=== PATIENT | male | born 1930 | race Caucasian/White ===

== ENCOUNTER 2016-05-31 11:04 | Outpatient (RCR) | payer MEDICARE ==
--- OUTSIDE RECORDS SUMMARY | 2016-03-29 13:58 | XMS REPORT | Continuity of Care Document ---
Author Author [facility] Organization [facility] Address Unknown Phone Unavailable Care Team Providers Care Station Mechanic Apprentice Name Role Phone NO, LOCAL PHYSICIAN PCP Unavailable Insurance Providers Payer Name Policy Number Subscriber Name Relationship Wps Medicare [id number] Eyal Erazo 18 Self / Same As Patient Blue Cross [facility] Supp [id number] Eyal Erazo 18 Self / Same As Patient Advance Directives Directive Response Recorded Date/Time Advance Directives No 01/26/16 1:26pm Health Care Power of Lens Generator No 01/26/16 1:26pm Organ Donor No 01/26/16 1:26pm Problems Active Problems Medical Problem Onset Date Status Anemia Unknown Acute Medications Current Home Medications Medication Dose Units Route Directions Days/Qty Instructions Start Date Sotalol Hcl 80 Mg 40 Mg Oral Twice A Day 10/07/09 Doxazosin Mesylate 8 Mg 8 Mg Oral Bedtime 10/07/09 Folic Acid 0.4 Mg 400 Mcg Oral Daily 10/07/09 Magnesium Oxide 400 Mg 400 Mg Oral Daily 10/07/09 Ranitidine Hcl 300 Mg 300 Mg Oral Twice A Day 05/18/15 Simvastatin 80 Mg 40 Mg Oral Bedtime 07/13/15 Acetaminophen/Diphenhydramine 1 Each 2 Each Oral Bedtime 07/13/15 Timolol Maleate 10 Ml 1 Drop Each Eye Twice A Day 01/26/16 Clopidogrel Bisulfate 75 Mg 75 Mg Oral Daily 01/26/16 Past Home Medications Medication Directions Ordered Status Clopidogrel Bisulfate 75 Mg Tablet, 75 Mg Oral Daily 10/07/09 Discontinued Simvastatin 40 Mg Tablet, 80 10/07/09 Discontinued Omeprazole 40 Mg Capsule., 10/07/09 Discontinued Aspirin 81 Mg Tabec, 10/07/09 Discontinued Social History Social History Problem Response Recorded Date/Time Alcohol Use Denies Use 05/18/2015 8:29am Recreational Drug Use No 05/18/2015 8:29am Recent Foreign Travel SEE CRAIG 02/10/2016 10:05am Do you dip or chew tobacco? No 07/15/2015 9:55am Type Used Cigarettes 01/26/2016 1:22pm Hospital Discharge Instructions No hospital discharge instructions. Plan of Care Prescriptions See Medication Section Functional Status No functional status results. Allergies, Adverse Reactions, Alerts No known allergies. Immunizations No immunization records. Vital Signs No known vital signs results. Results Laboratory Results Test Name Result Units Flags Reference Collection Date/Time Result Date/ Time Comments White Blood Count 5.9 10^3/uL 4.3-11.0 03/01/2016 3:41pm 03/01/2016 3: 51pm Red Blood Count 3.36 10^6/uL L 4.35-5.85 03/01/2016 3:41pm 03/01/2016 3: 51pm Hemoglobin 9.4 G/DL L 13.3-17.7 03/01/2016 3:41pm 03/01/2016 3:51pm Hematocrit 31 % L 40-54 03/01/2016 3:41pm 03/01/2016 3:51pm Mean Corpuscular Volume 91 FL 80-99 03/01/2016 3:41pm 03/01/2016 3: 51pm Mean Corpuscular Hemoglobin 28 PG 25-34 03/01/2016 3:41pm 03/01/2016 3: 51pm Mean Corpuscular Hemoglobin Concent 31 G/DL L 32-36 03/01/2016 3:41pm 01/2016 3:51pm Red Cell Distribution Width 21.0 % H 10.0-14.5 03/01/2016 3:41pm 2015 3:51pm Platelet Count 240 10^3/uL 130-400 03/01/2016 3:41pm 03/01/2016 3:51pm Mean Platelet Volume 9.2 FL 7.4-10.4 03/01/2016 3:41pm 03/01/2016 3: 51pm Neutrophils (%) (Auto) 68 % 42-75 03/01/2016 3:41pm 03/01/2016 3:51pm Lymphocytes (%) (Auto) 22 % 12-44 03/01/2016 3:41pm 03/01/2016 3:51pm Monocytes (%) (Auto) 7 % 0-12 03/01/2016 3:41pm 03/01/2016 3:51pm Eosinophils (%) (Auto) 2 % 0-10 03/01/2016 3:41pm 03/01/2016 3:51pm Basophils (%) (Auto) 0 % 0-10 03/01/2016 3:41pm 03/01/2016 3:51pm Neutrophils # (Auto) 4.1 X 10^3 1.8-7.8 03/01/2016 3:41pm 03/01/2016 3: 51pm Lymphocytes # (Auto) 1.3 X 10^3 1.0-4.0 03/01/2016 3:41pm 03/01/2016 3: 51pm Monocytes # (Auto) 0.4 X 10^3 0.0-1.0 03/01/2016 3:41pm 03/01/2016 3: 51pm Eosinophils # (Auto) 0.1 10^3/uL 0.0-0.3 03/01/2016 3:41pm 03/01/2016 3 :51pm Basophils # (Auto) 0.0 10^3/uL 0.0-0.1 03/01/2016 3:41pm 03/01/2016 3: 51pm Neutrophils % (Manual) 71 % 02/17/2016 10:16am 02/17/2016 12:10pm Band Neutrophils 0 % 02/17/2016 10:am 02/17/2016 12:10pm Lymphocytes % (Manual) 17 % 02/17/2016 10:16am 02/17/2016 12:10pm Monocytes % (Manual) 11 % 02/17/2016 10:16am 02/17/2016 12:10pm Eosinophils % (Manual) 0 % 02/17/2016 10:16am 02/17/2016 12:10pm Basophils % (Manual) 1 % 02/17/2016 10:16am 02/17/2016 12:10pm Hypochromasia SLIGHT 02/17/2016 10:1602/17/2016 12:10pm Anisocytosis MARKED 02/17/2016 10:16am 02/17/2016 12:10pm Absolute Reticulocyte Count 32 10e9/L 24-90 02/17/2016 10:16am 2015 11:11am Percent Reticulocyte Count 1.00 % 0.50-2.40 02/17/2016 10:16am 2015 11:11am Sodium Level 142 MMOL/L 135-145 03/01/2016 3:41pm 03/01/2016 4:18pm Potassium Level 4.6 MMOL/L 3.6-5.0 03/01/2016 3:41pm 03/01/2016 4:18pm Chloride Level 109 MMOL/L H 98-107 03/01/2016 3:41pm 03/01/2016 4:18pm Carbon Dioxide Level 23 MMOL/L 21-32 03/01/2016 3:41pm 03/01/2016 4: 18pm Anion Gap 10 MMOL/L 5-14 03/01/2016 3:41pm 03/01/2016 4:18pm Blood Urea Nitrogen 30 MG/DL H 7-18 03/01/2016 3:41pm 03/01/2016 4:18pm Creatinine 1.56 MG/DL H 0.60-1.30 03/01/2016 3:41pm 03/01/2016 4:18pm BUN/Creatinine Ratio 19 03/01/2016 3:41pm 03/01/2016 4:18pm Estimat Glomerular Filtration Rate 43 03/01/2016 3:41pm 03/01/2016 4:18pm GFR INTERPRETIVE DATA UNITS FOR ESTIMATED GFR (eGFR): mL/min/1.73 M2 REFERENCE RANGE FOR ESTIMATED GFR (eGFR) eGFR NORMAL eGFR >60 MODERATELY DECREASED eGFR 30-59 SEVERLY DECREASED eGFR 15-29 KIDNEY FAILURE <15 (OR DIALYSIS) Glucose Level 130 MG/DL H 70-105 03/01/2016 3:41pm 03/01/2016 4:18pm Calcium Level 9.3 MG/DL 8.5-10.1 03/01/2016 3:41pm 03/01/2016 4:18pm Total Bilirubin 0.3 MG/DL 0.1-1.0 03/01/2016 3:41pm 03/01/2016 4:18pm Alkaline Phosphatase 112 U/L 40-136 03/01/2016 3:41pm 03/01/2016 4: 18pm Aspartate Amino Transf (AST/SGOT) 20 U/L 5-34 03/01/2016 3:41pm 2015 4:18pm Alanine Aminotransferase (ALT/SGPT) 15 U/L 0-55 03/01/2016 3:41pm 03/01 4:18pm Total Protein 7.0 G/DL 6.4-8.2 03/01/2016 3:41pm 03/01/2016 4:18pm Albumin 3.7 G/DL 3.2-4.5 03/01/2016 3:41pm 03/01/2016 4:18pm Agxn-0-Ourgctqcttaru 3.66 mg/L H 0.00-1.85 02/17/2016 10:16am 02/20/2016 8:00am Test performed at [facility], CLIA# [id number] [address] [place] [address] Ferritin 25 ng/mL 25-300 03/01/2016 3:41pm 03/02/2016 7:20am Test performed at [facility], CLIA# [id number] [address] [place] [address] Iron Level 32 ug/dL L 40-180 03/01/2016 3:41pm 03/01/2016 6:05pm Transferrin % Saturation 11 % L 15-50 03/01/2016 3:41pm 03/01/2016 6: 05pm Total Iron Binding Capacity 294 ug/dL 280-380 03/01/2016 3:41pm 2015 6:05pm Unsaturated Iron Binding Capacity 262 ug/dL 55-450 03/01/2016 3:41pm 6:05pm Test performed at [facility], CLIA# [id number] [address] [place] [address] Total Protein (PEP) 6.4 g/dL 6.1-8.1 02/17/2016 10:16am 02/20/2016 8: 03am Test performed at [facility], CLIA# [id number] [address] [place] [address] Protein Electrophoresis Pathologist SEE PATH REPORT 02/17/2016 10: 16am 02/21/2016 2:54pm Protein Electrophoresis Note [id number] 02/17/2016 10:16am 2015 2:54pm Free [place] Light Chains, Quant 55.39 mg/L H 3.30-19.40 02/17/2016 10:16am 02/20/2016 8:03am Free Lambda Light Chains, Quant 28.43 mg/L H 5.71-26.30 02/17/2016 10: 16am 02/20/2016 8:03am Free [place]/Lambda Light Chain Ratio 1.95 ratio H 0.26-1.65 02/17/2016 10: 16am 02/20/2016 8:03am Test performed at [facility], CLIA# [id number] [address] [place] [address] Pathology Specimen Result FOOTNOTE 02/17/2016 10:16am 02/21/2016 2: 54pm Eyal Erazo Clinical Pathology Report Accession Number Collected Date/Time Verified Date/Time [id number] 02/16/16 5:08:00 PM 02/21/16 2:27:11 PM Interpretation Serum protein electrophoresis and free light chain analysis - Decreased albumin. Depending on the clinical context, hypoalbuminemia may reflect decreased hepatic synthesis from liver disease, malnutrition or albumin loss due to nephrosis, shelley or enteropathy. ICD-10: E88.09 No abnormal bands detected. ICD-10: D64.9 An increase in serum free kappa and/or lambda light chains with a near normal ratio most frequently represents a polyclonal increase associated with inflammatory conditions or renal insufficiency. Clinical correlation is required. ICD-10: D89.0 Gaudencio Beckford M.D. Pathologist (Electronic Signature) WFF 02/21/2016 Performing Location: [facility], [address] [place] Electrophoresis FRACTION G/DL NORMAL RANGE TOTAL PROTEIN 6.4 6.1 - 8.1 ALBUMIN L 3.1 3.5 - 4.8 ALPHA-1 0.4 0.2 - 0.5 ALPHA-2 1.0 0.5 - 1.2 BETA 0.8 0.6 - 1.2 GAMMA 1.0 0.5 - 1.5 Serum Free Light Chain Analysis FRACTION MG/L NORMAL RANGE Free [place] H 55.39 3.30 - 19.40 Free Lambda H 28.43 5.71 - 26.30 Free Ratio H 1.95 0.26 - 1.65 Specimen Serum Procedures No known history of procedures. Encounters Encounter Location Arrival/Admit Date Discharge/Depart Date Attending Provider Discharged Recurring [facility] 03/01/16 2:52pm 11:07ADRIANE Prescott MD
[2016-03-29 14:38] LABS: BASOPHILS % (AUTO) 0 % (0-10); EOSINOPHILS # (AUTO) 0.1 10^3/uL (0.0-0.3); EOSINOPHILS % (AUTO) 3 % (0-10); LYMPHOCYTES # (AUTO) 0.9 X 10^3 (1.0-4.0); LYMPHOCYTES % (AUTO) 21 % (12-44); MEAN CORPUSCULAR HEMOGLOBIN 30 PG (25-34); MEAN CORPUSCULAR HGB CONC 31 G/DL (32-36); MEAN CORPUSCULAR VOLUME 98 FL (80-99); MEAN PLATELET VOLUME 8.6 FL (7.4-10.4); MONOCYTES # (AUTO) 0.5 X 10^3 (0.0-1.0); MONOCYTES % (AUTO) 10 % (0-12); NEUTROPHILS # (AUTO) 2.9 X 10^3 (1.8-7.8); NEUTROPHILS % (AUTO) 66 % (42-75); PLATELET COUNT 206 10^3/uL (130-400); RED BLOOD COUNT 2.89 10^6/uL (4.35-5.85); WHITE BLOOD COUNT 4.4 10^3/uL (4.3-11.0)
[2016-03-29 15:03] LABS: ALBUMIN 3.6 G/DL (3.2-4.5); BILIRUBIN,TOTAL 0.3 MG/DL (0.1-1.0); CREATININE SERUM 1.5 MG/DL (0.60-1.30); POTASSIUM 4.6 MMOL/L (3.6-5.0); TOTAL PROTEIN 6.6 G/DL (6.4-8.2)
[2016-05-14 14:02] LABS: BASOPHILS % (AUTO) 0 % (0-10); EOSINOPHILS # (AUTO) 0.1 10^3/uL (0.0-0.3); EOSINOPHILS % (AUTO) 2 % (0-10); LYMPHOCYTES # (AUTO) 0.8 X 10^3 (1.0-4.0); LYMPHOCYTES % (AUTO) 11 % (12-44); MEAN CORPUSCULAR HEMOGLOBIN 34 PG (25-34); MEAN CORPUSCULAR HGB CONC 32 G/DL (32-36); MEAN CORPUSCULAR VOLUME 107 FL (80-99); MEAN PLATELET VOLUME 9.1 FL (7.4-10.4); MONOCYTES # (AUTO) 0.6 X 10^3 (0.0-1.0); MONOCYTES % (AUTO) 9 % (0-12); NEUTROPHILS # (AUTO) 5.8 X 10^3 (1.8-7.8); NEUTROPHILS % (AUTO) 79 % (42-75); PLATELET COUNT 199 10^3/uL (130-400); RED BLOOD COUNT 2.62 10^6/uL (4.35-5.85); RED CELL DISTRIBUTION WIDTH 18.3 % (10.0-14.5); WHITE BLOOD COUNT 7.3 10^3/uL (4.3-11.0)
[2016-05-14 14:37] LABS: ALBUMIN 3.8 G/DL (3.2-4.5); BILIRUBIN,TOTAL 0.4 MG/DL (0.1-1.0); CALCIUM 8.5 MG/DL (8.5-10.1); CREATININE SERUM 1.53 MG/DL (0.60-1.30); POTASSIUM 4.9 MMOL/L (3.6-5.0); TOTAL PROTEIN 6.7 G/DL (6.4-8.2)
[2016-05-14 16:51] LABS: %SAT TOTAL IRON BINDING CAPIC 10 % (15-50); TIBC 235 ug/dL (280-380)
[2016-05-15 08:44] LABS: FERRITIN 334 ng/mL (25-300); UIBC 212 ug/dL (55-450)
[~2016-05-31 11:04] MED LIST: ACET-2469 PO; ACETAMINOPHEN 500 MG TAB (TYLENOL) CANCER CTR ONE; ASP81TEC; CLOP75TA PO; CLOP75TA28 PO; DOXA8TAB33 PO; FERRIC CARBOXYMALTOSE (CANCER) 750 MG in NS (IVPB) CANCER CENTER 250 ML IV SCH; FOLI0.4T2 PO; MAGN400T6 PO; NS IV 500 ML (CANCER CENTER) 500 ML ONE; OMEP40CA36; RANI300T4 PO; SIMV40TA2; SIMV80TA3 PO; SOTA80TA38 PO; TIMO10DR12 OU; diphenhydrAMINE 25 MG TAB (BENADRYL) CANCER CENTER PO ONE
[2016-06-01 08:03] LABS: FOLIC ACID 22.4 ng/mL (1.5-24.0)
== END 2016-06-27 | disposition home or self-care (01) ==
LOC: ONC 11:04
PROVIDERS: ATTEND Internal Medicine Hematology & Oncology
DX: D64.9 Anemia, unspecified (principal); R97.20 Elevated prostate specific antigen [PSA]; N28.89 Other specified disorders of kidney and ureter; I25.10 Atherosclerotic heart disease of native coronary artery without angina pectoris; Z79.02 Long term (current) use of antithrombotics/antiplatelets; Z79.899 Other long term (current) drug therapy
CPT/HCPCS: 36415; 36430; 80053; 82607; 82728; 82746; 83540; 84153; 85025; 86850; 86900; 86901; 86920; 96365; 96374; 99213

== ENCOUNTER → 2016-07-13 | Outpatient (CLI) | payer MEDICARE ==
[~2016-07-13] MED LIST changes: -ACETAMINOPHEN 500 MG TAB (TYLENOL) CANCER CTR ONE; +CATHETER FLUSH 10 ML SYR IV PRN; -FERRIC CARBOXYMALTOSE (CANCER) 750 MG in NS (IVPB) CANCER CENTER 250 ML IV SCH; +IOHEXOL 350 MG/ML 100 ML (OMNIPAQUE 350) VIAL IV ONE; +NS 100 ML (IVPB) BAG IV ONE; -NS IV 500 ML (CANCER CENTER) 500 ML ONE; -diphenhydrAMINE 25 MG TAB (BENADRYL) CANCER CENTER PO ONE
--- OUTSIDE RECORDS SUMMARY | 2016-07-13 12:07 | XMS REPORT | Continuity of Care Document ---
Author Author [facility] Organization [facility] Address Unknown Phone Unavailable Care Team Providers Care Infrastructure Developer Name Role Phone NO, LOCAL PHYSICIAN PCP Unavailable Insurance Providers Payer Name Policy Number Subscriber Name Relationship s Medicare [id number] Eyal Erazo 18 Self / Same As Patient Blue Cross [facility] Supp [id number] Eyal Erazo 18 Self / Same As Patient Advance Directives Directive Response Recorded Date/Time Advance Directives No 01/26/16 1:26pm Health Care Power of Front Office Coordinator No 01/26/16 1:26pm Organ Donor No 01/26/16 [...] Use No 05/18/2015 8:29am Recent Foreign Travel N SEE CRAIG 03/29/2016 1:53pm Do you dip or chew tobacco? No [...] Result Date/ Time Comments White Blood Count 7.3 10^3/uL 4.3-11.0 05/14/2016 1:55pm 05/14/2016 2: 03pm Red Blood Count 2.62 10^6/uL L 4.35-5.85 05/14/2016 1:55pm 05/14/2016 2: 03pm Hemoglobin 8.9 G/DL L 13.3-17.7 05/14/2016 1:55pm 05/14/2016 2:03pm Hematocrit 28 % L 40-54 05/14/2016 1:55pm 05/14/2016 2:03pm Mean Corpuscular Volume 107 FL H 80-99 05/14/2016 1:55pm 05/14/2016 2: 03pm Mean Corpuscular Hemoglobin 34 PG 25-34 05/14/2016 1:55pm 05/14/2016 2: 03pm Mean Corpuscular Hemoglobin Concent 32 G/DL 32-36 05/14/2016 1:55pm 2:03pm Red Cell Distribution Width 18.3 % H 10.0-14.5 05/14/2016 1:55pm 2015 2:03pm Platelet Count 199 10^3/uL 130-400 05/14/2016 1:55pm 05/14/2016 2:03pm Mean Platelet Volume 9.1 FL 7.4-10.4 05/14/2016 1:55pm 05/14/2016 2: 03pm Neutrophils (%) (Auto) 79 % H 42-75 05/14/2016 1:55pm 05/14/2016 2:03pm Lymphocytes (%) (Auto) 11 % L 12-44 05/14/2016 1:55pm 05/14/2016 2:03pm Monocytes (%) (Auto) 9 % 0-12 05/14/2016 1:55pm 05/14/2016 2:03pm Eosinophils (%) (Auto) 2 % 0-10 05/14/2016 1:55pm 05/14/2016 2:03pm Basophils (%) (Auto) 0 % 0-10 05/14/2016 1:55pm 05/14/2016 2:03pm Neutrophils # (Auto) 5.8 X 10^3 1.8-7.8 05/14/2016 1:55pm 05/14/2016 2: 03pm Lymphocytes # (Auto) 0.8 X 10^3 L 1.0-4.0 05/14/2016 1:55pm 05/14/2016 2: 03pm Monocytes # (Auto) 0.6 X 10^3 0.0-1.0 05/14/2016 1:55pm 05/14/2016 2: 03pm Eosinophils # (Auto) 0.1 10^3/uL 0.0-0.3 05/14/2016 1:55pm 05/14/2016 2 :03pm Basophils # (Auto) 0.0 10^3/uL 0.0-0.1 05/14/2016 1:55pm 05/14/2016 2: 03pm Sodium Level 140 MMOL/L 135-145 05/14/2016 1:55pm 05/14/2016 2:45pm Potassium Level 4.9 MMOL/L 3.6-5.0 05/14/2016 1:55pm 05/14/2016 2:45pm Chloride Level 112 MMOL/L H 98-107 05/14/2016 1:55pm 05/14/2016 2:45pm Carbon Dioxide Level 22 MMOL/L 21-32 05/14/2016 1:55pm 05/14/2016 2: 45pm Anion Gap 6 MMOL/L 5-14 05/14/2016 1:55pm 05/14/2016 2:45pm Blood Urea Nitrogen 31 MG/DL H 7-18 05/14/2016 1:55pm 05/14/2016 2:45pm Creatinine 1.53 MG/DL H 0.60-1.30 05/14/2016 1:55pm 05/14/2016 2:45pm BUN/Creatinine Ratio 20 05/14/2016 1:55pm 05/14/2016 2:45pm Estimat Glomerular Filtration Rate 43 05/14/2016 1:55pm 05/14/2016 2:45pm GFR INTERPRETIVE DATA UNITS FOR ESTIMATED GFR (eGFR): mL/min/1.73 M2 REFERENCE RANGE FOR ESTIMATED GFR (eGFR) eGFR NORMAL eGFR >60 MODERATELY DECREASED eGFR 30-59 SEVERLY DECREASED eGFR 15-29 KIDNEY FAILURE <15 (OR DIALYSIS) Glucose Level 113 MG/DL H 70-105 05/14/2016 1:55pm 05/14/2016 2:45pm Calcium Level 8.5 MG/DL 8.5-10.1 05/14/2016 1:55pm 05/14/2016 2:45pm Total Bilirubin 0.4 MG/DL 0.1-1.0 05/14/2016 1:55pm 05/14/2016 2:45pm Alkaline Phosphatase 105 U/L 40-136 05/14/2016 1:55pm 05/14/2016 2: 45pm Aspartate Amino Transf (AST/SGOT) 17 U/L 5-34 05/14/2016 1:55pm 2015 2:45pm Alanine Aminotransferase (ALT/SGPT) 11 U/L 0-55 05/14/2016 1:55pm 05/14 2:45pm Total Protein 6.7 G/DL 6.4-8.2 05/14/2016 1:55pm 05/14/2016 2:45pm Albumin 3.8 G/DL 3.2-4.5 05/14/2016 1:55pm 05/14/2016 2:45pm Ferritin 334 ng/mL H 25-300 05/14/2016 1:55pm 05/15/2016 8:44am Test performed at [facility], CLIA# [id number] [address] [place] [address] Folate 22.4 ng/mL 1.5-24.0 05/31/2016 11:28am 06/01/2016 8:03am Test performed at [facility], CLIA# [id number] [address] [place] [address] Iron Level 23 ug/dL L 40-180 05/14/2016 1:55pm 05/15/2016 8:44am Transferrin % Saturation 10 % L 15-50 05/14/2016 1:55pm 05/15/2016 8: 44am Total Iron Binding Capacity 235 ug/dL L 280-380 05/14/2016 1:55pm 2015 8:44am Unsaturated Iron Binding Capacity 212 ug/dL 55-450 05/14/2016 1:55pm 8:44am Test performed at [facility], CLIA# [id number] [address] [place] [address] Vitamin B12 Level 400 pg/mL 200-1000 05/31/2016 11:28am 06/01/2016 8: 03am Test performed at [facility], CLIA# [id number] [address] [place] [address] Procedures No known history of procedures. Encounters Encounter Location Arrival/Admit Date Discharge/Depart Date Attending Provider Discharged Recurring [facility] 05/31/16 11:04am 11:59pm ADRIANE MURRAY MD
--- NOTE | 2016-07-13 17:29 | Diagnostic Imaging Report ---
PROCEDURE: CT abdomen and pelvis with and without contrast. TECHNIQUE: Precontrast acquisitions were acquired through the abdomen and pelvis. Multiple contiguous axial images were obtained through the abdomen and pelvis after the administration of intravenous contrast. INDICATION: Right renal mass. Comparison is made with a prior CT angiogram from December 05, 2015. FINDINGS: The visualized lung bases demonstrate no focal consolidation or evidence of a pleural effusion. There are advanced coronary calcifications. The patient is status post a previous sternotomy. The liver demonstrates no evidence of a focal intrahepatic abnormality. There appears to be a fold within the gallbladder at the fundus. There is no biliary dilatation. The spleen is unremarkable. There is no focal pancreatic abnormality. There is no evidence of an adrenal mass. Dominant exophytic lesion arising from the posterior aspect of the right kidney measures 5.2 cm and is of water density compatible with a simple cyst. An exophytic lesion arising from the mid right kidney anteriorly measures 2.3 x 2.1 cm. On precontrast images, this has a density of 11 Hounsfield units. It has a density of 15 Hounsfield units on the postcontrast exam. This is a density of 22 Hounsfield units on the delayed phase. On the left, there is an 18 mm cortical cyst within the mid left kidney which demonstrates low densities with negative Hounsfield units on the delayed phase. The small and large bowel are normal in caliber without evidence of obstruction. There is advanced diverticulosis but no evidence of diverticulitis. The urinary bladder is unremarkable. The prostate is enlarged. There are no pathologically enlarged abdominal or pelvic lymph nodes demonstrated. Advanced atherosclerotic calcifications are again demonstrated within the aorta and the iliacs. There are advanced multilevel degenerative endplate changes demonstrated throughout the spine. There is no suspicious lytic or blastic lesion. IMPRESSION: 1. Patient's exophytic lesion extending anteriorly from the mid right kidney is slightly smaller than on the previous examination. This demonstrates only minimal increase in density over the course of the exam. Precontrast Hounsfield units are 11, with the delayed phase measured at 22. The overall findings favor a slightly hyperdense cyst. This could be further assessed with ultrasound or MRI. Otherwise, continued followup could be performed. 2. The large dominant lesion in the right kidney and the left renal lesion appear compatible with simple cyst. 3. Advanced diverticulosis without evidence of diverticulitis. 4. Advanced atherosclerosis and coronary artery disease. 5. Advanced degenerative features throughout the visualized portion of the spine. Dictated by: Dictated on workstation # [id number]
== END ==
LOC: RAD 12:03
PROVIDERS: ATTEND Urology
DX: N28.9 Disorder of kidney and ureter, unspecified (principal); K57.90 Diverticulosis of intestine, part unspecified, without perforation or abscess without bleeding
CPT/HCPCS: 74178

== ENCOUNTER 2016-08-13 13:23 | Outpatient (RCR) | payer MEDICARE ==
[~2016-08-13 13:23] MED LIST changes: -CATHETER FLUSH 10 ML SYR IV PRN; -IOHEXOL 350 MG/ML 100 ML (OMNIPAQUE 350) VIAL IV ONE; -NS 100 ML (IVPB) BAG IV ONE
--- OUTSIDE RECORDS SUMMARY | 2016-08-13 13:27 | XMS REPORT | Continuity of Care Document ---
Author Author [facility] Organization [facility] Address Unknown Phone Unavailable Care Team Providers Care Stained Glass Artist Name Role Phone NO, LOCAL PHYSICIAN PCP Unavailable Insurance Providers Payer Name Policy Number Subscriber Name Relationship s Medicare [id number] Eyal Erazo 18 Self / Same As Patient Blue Cross [facility] Supp [id number] Eyal Erazo 18 Self / Same As Patient Advance Directives Directive Response Recorded Date/Time Advance Directives No 01/26/16 1:26pm Health Care Power of Assistant Unit Forester No 01/26/16 1:26pm Organ Donor No 01/26/16 [...] 05/14/2016 1:55pm 05/15/2016 8:44am Test performed at [facility], CLIA# [id number] [address] [place] [address] Folate 22.4 ng/mL 1.5-24.0 05/31/2016 11:28am 06/01/2016 8:03am Test performed at [facility], CLIA# [id number] [address] [place] [address] Iron Level 23 ug/dL L 40-180 05/14/2016 1:55pm 05/15/2016 8:44am Transferrin % Saturation 10 % L 15-50 05/14/2016 1:55pm 05/15/2016 8: 44am Total Iron Binding Capacity 235 ug/dL L 280-380 05/14/2016 1:55pm 2015 8:44am Unsaturated Iron Binding Capacity 212 ug/dL 55-450 05/14/2016 1:55pm 8:44am Test performed at [facility], CLIA# [id number] [address] [place] [address] Vitamin B12 Level 400 pg/mL 200-1000 05/31/2016 11:28am 06/01/2016 8: 03am Test performed at [facility], CLIA# [id number] [address] [place] [address] Procedures No known history of procedures. Encounters Encounter Location Arrival/Admit Date Discharge/Depart Date Attending Provider Discharged Recurring [facility] 05/31/16 11:04am 11:59pm ADRIANE MURRAY MD
[2016-08-13 13:48] LABS: BASOPHILS % (AUTO) 0 % (0-10); EOSINOPHILS # (AUTO) 0.1 10^3/uL (0.0-0.3); EOSINOPHILS % (AUTO) 2 % (0-10); LYMPHOCYTES % (AUTO) 21 % (12-44); MEAN CORPUSCULAR HEMOGLOBIN 34 PG (25-34); MEAN CORPUSCULAR HGB CONC 32 G/DL (32-36); MEAN CORPUSCULAR VOLUME 108 FL (80-99); MEAN PLATELET VOLUME 9.3 FL (7.4-10.4); MONOCYTES # (AUTO) 0.4 X 10^3 (0.0-1.0); MONOCYTES % (AUTO) 10 % (0-12); NEUTROPHILS # (AUTO) 3.1 X 10^3 (1.8-7.8); NEUTROPHILS % (AUTO) 67 % (42-75); PLATELET COUNT 169 10^3/uL (130-400); RED BLOOD COUNT 2.88 10^6/uL (4.35-5.85); RED CELL DISTRIBUTION WIDTH 13.3 % (10.0-14.5); WHITE BLOOD COUNT 4.6 10^3/uL (4.3-11.0)
[2016-08-13 14:31] LABS: ALBUMIN 3.9 G/DL (3.2-4.5); BILIRUBIN,TOTAL 0.5 MG/DL (0.1-1.0); CREATININE SERUM 1.55 MG/DL (0.60-1.30); POTASSIUM 5.3 MMOL/L (3.6-5.0); TOTAL PROTEIN 6.9 G/DL (6.4-8.2)
[2016-08-13 16:24] LABS: %SAT TOTAL IRON BINDING CAPIC 15 % (15-50); TIBC 267 ug/dL (280-380)
[2016-08-14 07:35] LABS: FOLIC ACID >24.0 ng/mL (1.5-24.0); UIBC 226 ug/dL (55-450)
== END 2016-11-11 | disposition home or self-care (01) ==
LOC: ONC 13:23
PROVIDERS: ATTEND Internal Medicine Hematology & Oncology
DX: D64.9 Anemia, unspecified (principal); R97.20 Elevated prostate specific antigen [PSA]; N28.89 Other specified disorders of kidney and ureter; I25.10 Atherosclerotic heart disease of native coronary artery without angina pectoris; Z79.02 Long term (current) use of antithrombotics/antiplatelets; Z79.899 Other long term (current) drug therapy
CPT/HCPCS: 36415; 80053; 82607; 82728; 82746; 83540; 84153; 85025; 99213

== ENCOUNTER 2016-11-14 14:27 | Outpatient (RCR) | payer MEDICARE ==
[2016-11-14 14:58] LABS: BASOPHILS % (AUTO) 0 % (0-10); EOSINOPHILS # (AUTO) 0.1 10^3/uL (0.0-0.3); EOSINOPHILS % (AUTO) 2 % (0-10); LYMPHOCYTES # (AUTO) 0.9 X 10^3 (1.0-4.0); LYMPHOCYTES % (AUTO) 23 % (12-44); MEAN CORPUSCULAR HEMOGLOBIN 34 PG (25-34); MEAN CORPUSCULAR HGB CONC 32 G/DL (32-36); MEAN CORPUSCULAR VOLUME 107 FL (80-99); MEAN PLATELET VOLUME 10.1 FL (7.4-10.4); MONOCYTES # (AUTO) 0.3 X 10^3 (0.0-1.0); MONOCYTES % (AUTO) 7 % (0-12); NEUTROPHILS # (AUTO) 2.8 X 10^3 (1.8-7.8); NEUTROPHILS % (AUTO) 68 % (42-75); PLATELET COUNT 152 10^3/uL (130-400); RED BLOOD COUNT 3.19 10^6/uL (4.35-5.85); RED CELL DISTRIBUTION WIDTH 13.8 % (10.0-14.5); WHITE BLOOD COUNT 4.1 10^3/uL (4.3-11.0)
[2016-11-14 15:14] LABS: BILIRUBIN,TOTAL 0.6 MG/DL (0.1-1.0); CALCIUM 9.2 MG/DL (8.5-10.1); CREATININE SERUM 1.69 MG/DL (0.60-1.30); POTASSIUM 4.9 MMOL/L (3.6-5.0)
== END 2017-02-12 | disposition home or self-care (01) ==
LOC: ONC 14:27
PROVIDERS: ATTEND Internal Medicine Hematology & Oncology
DX: D64.9 Anemia, unspecified (principal); R97.20 Elevated prostate specific antigen [PSA]; N28.89 Other specified disorders of kidney and ureter; I25.10 Atherosclerotic heart disease of native coronary artery without angina pectoris; H90.3 Sensorineural hearing loss, bilateral; I73.9 Peripheral vascular disease, unspecified; Z79.02 Long term (current) use of antithrombotics/antiplatelets; Z79.899 Other long term (current) drug therapy
CPT/HCPCS: 36415; 80053; 82728; 83540; 84153; 85025; 99213

== ENCOUNTER → 2016-11-14 | Outpatient (CLI) | payer MEDICARE | LOC: LAB 14:51 | PROVIDERS: ATTEND Family Medicine | DX: Z53.9 Procedure and treatment not carried out, unspecified reason (principal) ==

== ENCOUNTER → 2016-11-14 | Outpatient (CLI) | payer MEDICARE | LOC: LAB 14:54 | PROVIDERS: ATTEND Internal Medicine Cardiovascular Disease | DX: N28.89 Other specified disorders of kidney and ureter (principal); R97.20 Elevated prostate specific antigen [PSA]; D64.9 Anemia, unspecified; I25.10 Atherosclerotic heart disease of native coronary artery without angina pectoris; H90.3 Sensorineural hearing loss, bilateral ==

== ENCOUNTER → 2017-01-10 | Outpatient (CLI) | payer MEDICARE ==
[~2017-01-10] MED LIST changes: +CATHETER FLUSH 10 ML SYR IV PRN; +IOHEXOL 350 MG/ML 100 ML (OMNIPAQUE 350) VIAL IV ONE; +NS 100 ML (IVPB) BAG IV ONE
--- NOTE | 2017-01-10 13:57 | Diagnostic Imaging Report ---
PROCEDURE: CT abdomen and pelvis with and without contrast. TECHNIQUE: Precontrast acquisitions were acquired through the abdomen and pelvis. Multiple contiguous axial images were obtained through the abdomen and pelvis after the administration of intravenous contrast. INDICATION: Renal mass. CORRELATION STUDY: 07/13/2016 and 01/30/2013. FINDINGS: LOWER THORAX: Heart size is upper limits of normal. There is presence of dense coronary artery calcification as well as calcification at the level of the mitral valve. Reflux of contrast into the inferior vena cava and hepatic veins could be reflective of right heart failure or perhaps tricuspid insufficiency. However, right atrium does not appear to be overtly enlarged. There may be very small hiatal hernia at the the EG junction. LIVER: Unremarkable. GALLBLADDER: Somewhat distended with multiple folds but otherwise unremarkable. No bile duct dilatation. SPLEEN: Unremarkable. PANCREAS: Unremarkable. ADRENAL GLANDS: Slight hyperplasia with thickening. No definitive nodularity or mass. KIDNEYS: Again noted multiple low-density masses within both kidneys, compatible with cysts. A 2.7 x 2.4 cm low-density mass off the anterior superior pole is again demonstrated. Most recent study measured 23 x 21 mm. At baseline assessment, measured 21 mm. This is of slightly increased density and demonstrates some peripheral enhancement including a small area of nodular enhancement along its anteroinferior aspect. This demonstrates Hounsfield units of 13, 22, and 29 on the pre, arterial and delayed-enhanced sequences, respectively. ABDOMINAL AORTA: Moderate wall calcification. Very slight ectasia inferiorly without significant aneurysmal dilatation. Rather significant bulky calcification of common iliac arteries with likely moderate narrowing. GASTROINTESTINAL TRACT: Extensive colonic diverticulosis is noted. No obstruction or inflammation. There is a somewhat prominent circumferential thickening of the rectum. URINARY BLADDER: Unremarkable. REPRODUCTIVE: Prostate gland is mildly prominent. OSSEOUS STRUCTURES: Rather advanced multilevel degenerative changes. Disc space narrowing and endplate osteophyte formation. IMPRESSION: 1. Bilateral renal cysts with a slightly more complex hyperdense mass in the right kidney again demonstrated. This is overall perhaps slightly larger from previous imaging. Bosniak 2F, this could be further assessed with either ultrasound and/or MRI if clinically warranted. 2. Extensive colonic diverticulosis without evidence for acute diverticulitis. Also noted asymmetric wall thickening at the level of the rectum. This is nonspecific, could be reflective of proctitis or possibility of annular lesion not excluded. Correlation with need for potential followup colon cancer screening evaluation. 3. Rather prominent aortoiliac vascular calcification, particularly of the common iliac arteries. Dictated by: Dictated on workstation # [id number]
== END ==
LOC: RAD 11:24
PROVIDERS: ATTEND Urology
DX: N28.1 Cyst of kidney, acquired (principal); K57.30 Diverticulosis of large intestine without perforation or abscess without bleeding; K62.9 Disease of anus and rectum, unspecified; I70.0 Atherosclerosis of aorta; I70.8 Atherosclerosis of other arteries
CPT/HCPCS: 74178

== ENCOUNTER 2017-03-19 14:07 | Outpatient (RCR) | payer MEDICARE ==
[2017-02-18 15:18] LABS: BASOPHILS % (AUTO) 0 % (0-10); EOSINOPHILS # (AUTO) 0.1 10^3/uL (0.0-0.3); EOSINOPHILS % (AUTO) 2 % (0-10); LYMPHOCYTES # (AUTO) 0.8 X 10^3 (1.0-4.0); LYMPHOCYTES % (AUTO) 19 % (12-44); MEAN CORPUSCULAR HEMOGLOBIN 34 PG (25-34); MEAN CORPUSCULAR HGB CONC 31 G/DL (32-36); MEAN CORPUSCULAR VOLUME 109 FL (80-99); MONOCYTES # (AUTO) 0.4 X 10^3 (0.0-1.0); MONOCYTES % (AUTO) 9 % (0-12); NEUTROPHILS # (AUTO) 2.8 X 10^3 (1.8-7.8); NEUTROPHILS % (AUTO) 70 % (42-75); PLATELET COUNT 173 10^3/uL (130-400); RED BLOOD COUNT 2.69 10^6/uL (4.35-5.85); RED CELL DISTRIBUTION WIDTH 14.1 % (10.0-14.5)
[2017-02-18 15:40] LABS: ALBUMIN 3.7 GM/DL (3.2-4.5); BILIRUBIN,TOTAL 0.4 MG/DL (0.1-1.0); CREATININE SERUM 1.41 MG/DL (0.60-1.30); POTASSIUM 4.7 MMOL/L (3.6-5.0); TOTAL PROTEIN 6.9 GM/DL (6.4-8.2)
[~2017-03-19 14:07] MED LIST changes: -CATHETER FLUSH 10 ML SYR IV PRN; -IOHEXOL 350 MG/ML 100 ML (OMNIPAQUE 350) VIAL IV ONE; -NS 100 ML (IVPB) BAG IV ONE
[2017-03-19 14:32] LABS: BASOPHILS % (AUTO) 0 % (0-10); EOSINOPHILS # (AUTO) 0.1 10^3/uL (0.0-0.3); EOSINOPHILS % (AUTO) 2 % (0-10); LYMPHOCYTES % (AUTO) 23 % (12-44); MEAN CORPUSCULAR HEMOGLOBIN 34 PG (25-34); MEAN CORPUSCULAR HGB CONC 31 G/DL (32-36); MEAN CORPUSCULAR VOLUME 110 FL (80-99); MEAN PLATELET VOLUME 9.7 FL (7.4-10.4); MONOCYTES # (AUTO) 0.3 X 10^3 (0.0-1.0); MONOCYTES % (AUTO) 8 % (0-12); NEUTROPHILS # (AUTO) 2.8 X 10^3 (1.8-7.8); NEUTROPHILS % (AUTO) 67 % (42-75); PLATELET COUNT 166 10^3/uL (130-400); RED BLOOD COUNT 2.75 10^6/uL (4.35-5.85); WHITE BLOOD COUNT 4.1 10^3/uL (4.3-11.0)
[2017-03-19 14:49] LABS: ALBUMIN 3.6 GM/DL (3.2-4.5); BILIRUBIN,TOTAL 0.3 MG/DL (0.1-1.0); CREATININE SERUM 1.52 MG/DL (0.60-1.30); POTASSIUM 4.2 MMOL/L (3.6-5.0)
== END 2017-03-23 | disposition home or self-care (01) ==
LOC: ONC 14:07
PROVIDERS: ATTEND Internal Medicine Hematology & Oncology
DX: D64.9 Anemia, unspecified (principal); R97.20 Elevated prostate specific antigen [PSA]; N28.89 Other specified disorders of kidney and ureter; I25.10 Atherosclerotic heart disease of native coronary artery without angina pectoris; H90.3 Sensorineural hearing loss, bilateral; I73.9 Peripheral vascular disease, unspecified; Z79.02 Long term (current) use of antithrombotics/antiplatelets; Z79.899 Other long term (current) drug therapy
CPT/HCPCS: 36415; 80053; 82668; 82728; 83540; 85025; 99213

== ENCOUNTER → 2017-06-04 | Outpatient (CLI) | payer MEDICARE ==
[2017-06-04 10:20] LABS: CALCIUM 8.7 MG/DL (8.5-10.1); CREATININE SERUM 1.49 MG/DL (0.60-1.30); POTASSIUM 4.7 MMOL/L (3.6-5.0)
== END ==
LOC: RAD 09:50
PROVIDERS: ATTEND Internal Medicine Cardiovascular Disease
DX: I65.23 Occlusion and stenosis of bilateral carotid arteries (principal)
CPT/HCPCS: 36415; 80048

== ENCOUNTER 2017-07-16 13:38 | Outpatient (RCR) | payer MEDICARE ==
[2017-04-23 14:23] LABS: BASOPHILS % (AUTO) 0 % (0-10); EOSINOPHILS # (AUTO) 0.1 10^3/uL (0.0-0.3); EOSINOPHILS % (AUTO) 2 % (0-10); HEMATOCRIT 32 % (40-54); LYMPHOCYTES # (AUTO) 1.1 X 10^3 (1.0-4.0); LYMPHOCYTES % (AUTO) 28 % (12-44); MEAN CORPUSCULAR HEMOGLOBIN 34 PG (25-34); MEAN CORPUSCULAR HGB CONC 32 G/DL (32-36); MEAN CORPUSCULAR VOLUME 108 FL (80-99); MEAN PLATELET VOLUME 9.8 FL (7.4-10.4); MONOCYTES # (AUTO) 0.3 X 10^3 (0.0-1.0); MONOCYTES % (AUTO) 7 % (0-12); NEUTROPHILS # (AUTO) 2.4 X 10^3 (1.8-7.8); NEUTROPHILS % (AUTO) 63 % (42-75); PLATELET COUNT 169 10^3/uL (130-400); RED BLOOD COUNT 2.92 10^6/uL (4.35-5.85); RED CELL DISTRIBUTION WIDTH 13.8 % (10.0-14.5); WHITE BLOOD COUNT 3.8 10^3/uL (4.3-11.0)
[2017-04-23 14:46] LABS: ALBUMIN 3.8 GM/DL (3.2-4.5); BILIRUBIN,TOTAL 0.4 MG/DL (0.1-1.0); CALCIUM 8.8 MG/DL (8.5-10.1); CREATININE SERUM 1.4 MG/DL (0.60-1.30); POTASSIUM 4.1 MMOL/L (3.6-5.0); TOTAL PROTEIN 6.8 GM/DL (6.4-8.2)
[2017-05-21 13:50] LABS: ABSOLUTE RETIC # 62 10e9/L (24-90); BASOPHILS % (AUTO) 0 % (0-10); EOSINOPHILS # (AUTO) 0.1 10^3/uL (0.0-0.3); EOSINOPHILS % (AUTO) 2 % (0-10); HEMATOCRIT 28 % (40-54); HEMOGLOBIN 8.7 G/DL (13.3-17.7); LYMPHOCYTES % (AUTO) 27 % (12-44); MEAN CORPUSCULAR HEMOGLOBIN 35 PG (25-34); MEAN CORPUSCULAR HGB CONC 32 G/DL (32-36); MEAN CORPUSCULAR VOLUME 110 FL (80-99); MEAN PLATELET VOLUME 9.8 FL (7.4-10.4); MONOCYTES # (AUTO) 0.3 X 10^3 (0.0-1.0); MONOCYTES % (AUTO) 9 % (0-12); NEUTROPHILS # (AUTO) 2.3 X 10^3 (1.8-7.8); NEUTROPHILS % (AUTO) 62 % (42-75); PLATELET COUNT 156 10^3/uL (130-400); RED BLOOD COUNT 2.51 10^6/uL (4.35-5.85); RED CELL DISTRIBUTION WIDTH 14.4 % (10.0-14.5); RETICULOCYTE % 2.46 % (0.50-2.40); WHITE BLOOD COUNT 3.7 10^3/uL (4.3-11.0)
[2017-05-21 14:11] LABS: ALBUMIN 3.6 GM/DL (3.2-4.5); BILIRUBIN,TOTAL 0.4 MG/DL (0.1-1.0); CREATININE SERUM 1.37 MG/DL (0.60-1.30); POTASSIUM 4.8 MMOL/L (3.6-5.0); TOTAL PROTEIN 6.5 GM/DL (6.4-8.2)
[~2017-07-16 13:38] MED LIST changes: +CYANOCOBALAMIN INJ 1000 MCG/ML (CANCER CENTER) ONE
[2017-07-16 13:57] LABS: ABSOLUTE RETIC # 43 10e9/L (24-90); BASOPHILS % (AUTO) 1 % (0-10); EOSINOPHILS # (AUTO) 0.1 10^3/uL (0.0-0.3); EOSINOPHILS % (AUTO) 2 % (0-10); HEMATOCRIT 32 % (40-54); HEMOGLOBIN 10.3 G/DL (13.3-17.7); LYMPHOCYTES # (AUTO) 0.9 X 10^3 (1.0-4.0); LYMPHOCYTES % (AUTO) 23 % (12-44); MEAN CORPUSCULAR HEMOGLOBIN 35 PG (25-34); MEAN CORPUSCULAR HGB CONC 32 G/DL (32-36); MEAN CORPUSCULAR VOLUME 110 FL (80-99); MEAN PLATELET VOLUME 9.9 FL (7.4-10.4); MONOCYTES # (AUTO) 0.2 X 10^3 (0.0-1.0); MONOCYTES % (AUTO) 6 % (0-12); NEUTROPHILS # (AUTO) 2.6 X 10^3 (1.8-7.8); NEUTROPHILS % (AUTO) 69 % (42-75); PLATELET COUNT 137 10^3/uL (130-400); RED BLOOD COUNT 2.95 10^6/uL (4.35-5.85); RED CELL DISTRIBUTION WIDTH 13.8 % (10.0-14.5); RETICULOCYTE % 1.45 % (0.50-2.40); WHITE BLOOD COUNT 3.8 10^3/uL (4.3-11.0)
[2017-07-16] MEDS ORDERED: CYANOCOBALAMIN INJ 1000 MCG/ML (CANCER CENTER) ONE (14:12)
[2017-07-16 14:16] LABS: ALBUMIN 3.8 GM/DL (3.2-4.5); BILIRUBIN,TOTAL 0.5 MG/DL (0.1-1.0); CALCIUM 9.1 MG/DL (8.5-10.1); CREATININE SERUM 1.67 MG/DL (0.60-1.30); POTASSIUM 4.6 MMOL/L (3.6-5.0)
== END 2017-07-22 | disposition home or self-care (01) ==
LOC: ONC 13:38
PROVIDERS: ATTEND Internal Medicine Hematology & Oncology
DX: D64.9 Anemia, unspecified (principal); R97.20 Elevated prostate specific antigen [PSA]; N28.89 Other specified disorders of kidney and ureter; I25.10 Atherosclerotic heart disease of native coronary artery without angina pectoris; H90.3 Sensorineural hearing loss, bilateral; I73.9 Peripheral vascular disease, unspecified; Z79.02 Long term (current) use of antithrombotics/antiplatelets; Z79.899 Other long term (current) drug therapy
CPT/HCPCS: 36415; 80053; 85025; 85045; 96372; 99213

== ENCOUNTER → 2017-08-21 | Outpatient (CLI) | payer MEDICARE ==
[~2017-08-21] MED LIST changes: -CYANOCOBALAMIN INJ 1000 MCG/ML (CANCER CENTER) ONE
[2017-08-21 11:58] LABS: CALCIUM 9.2 MG/DL (8.5-10.1); CREATININE SERUM 1.25 MG/DL (0.60-1.30); POTASSIUM 4.9 MMOL/L (3.6-5.0)
--- NOTE | 2017-08-21 15:27 | Diagnostic Imaging Report ---
CLINICAL INDICATION: Patient with severe coronary artery disease. EXAMS: 1: Head CT with and without IV contrast. 2: CT angiogram of the head and neck performed with 80 cc of Omnipaque 350 IV contrast. Sagittal and coronal MIP reformations were created for better visualization of vascular anatomy. COMPARISON: None. FINDINGS: Head CT: There is no evidence of acute cerebral infarct, intracranial hemorrhage, or gross mass effect. There are focal and patchy areas of low-attenuation white matter changes throughout both cerebral hemispheres, likely representing chronic small vessel ischemic disease. There is diffuse brain parenchymal volume loss seen. There is normal isaacs-white matter distinction. There is no significant midline shift or herniation. There is no evidence of hydrocephalus. The basal cisterns are unremarkable. The skull, extracranial soft tissue, and orbits are unremarkable. There are large amounts of mucosal thickening involving both maxillary sinuses, ethmoid sinus, frontal sinus, and sphenoid sinus with near complete consolidation. There is high-density material seen within both maxillary sinuses, ethmoid sinus, sphenoid sinus regions as well. There is chronic bony thickening/sclerosis involving the paranasal sinuses. Temporal bones show no significant abnormality. CT angiogram: Three-vessel aortic arch is seen. There is dense atherosclerotic disease involving the origin of the right subclavian artery with severe stenosis seen. There is no significant stenosis involving the left subclavian artery. The distal aspect of the right brachiocephalic artery shows atherosclerotic disease with no significant stenosis. There is dense atherosclerotic disease involving the origin and proximal right CCA with less than 50% narrowing. There is extensive atherosclerotic calcification involving the distal right CCA with mild narrowing in its distal portion. There is no significant narrowing of the origin or proximal aspect of the right ECA. There is dense atherosclerotic disease involving the proximal right ICA with grossly 70% stenosis. The remainder of the cervical right ICA shows no significant narrowing. The left CCA origin shows mild narrowing. There is soft atherosclerotic plaque involving the distal left CCA, proximal cervical left ICA, and origin of the left ECA. There is no significant stenosis of the left CCA. There is severe stenosis of the origin and proximal left ECA. There is focal tortuosity of the proximal left cervical ICA with mild to moderate narrowing. There is dense atherosclerotic plaque involving the distal cervical left ICA with mild narrowing seen. There is dense atherosclerotic plaque involving the origin of the cervical left ICA with severe stenosis. Remainder of the cervical left vertebral artery is patent. The cervical right vertebral artery is patent without significant stenosis. Relatively codominant vertebral arteries are seen. Intradural vertebral arteries, basilar artery, PICA, bilateral SCAs, and left [employer] patent without significant stenosis. The right P1 [employer] is absent or severely hypoplastic with a right posterior communicating artery seen. There is atherosclerotic disease involving the bilateral cavernous carotid arteries with severe stenosis on the right and areas of moderate stenosis on the left. The right A1 GUDELIA is hypoplastic. There is a prominent anterior communicating artery which is trifurcating. The ACAs and their distal branches and bilateral MCAs and their distal branches are patent. There is no evidence of aneurysm or significant stenosis involving the remainder of the [place]. Visualized portion of the dural venous sinus shows no significant abnormality. There is a 13 mm low-density nodule in the right thyroid gland. There is significant emphysematous lung disease seen. There is multilevel cervical spine degenerative disease. IMPRESSION: 1: There are age-related brain parenchymal changes with no evidence of acute intracranial process. There is no abnormal IV contrast enhancement. 2: There is diffuse atherosclerotic disease involving the intracranial ICAs and neck arteriovascular structures which is described in detail above. 3: There is severe stenosis involving the proximal cervical right ICA, origin of the cervical left ICA, and origin/proximal aspect of the left ECA. 4: There are areas of severe stenosis involving the cavernous right ICA and moderate stenosis involving areas of the cavernous left ICA. 5: There is a 13 mm right thyroid gland nodule. Thyroid ultrasound would better evaluate. 6: There is severe diffuse paranasal sinusitis. Dictated by: Dictated on workstation # [id number]
== END ==
LOC: RAD 11:26
PROVIDERS: ATTEND Physician Assistant Medical
DX: I67.2 Cerebral atherosclerosis (principal); I65.23 Occlusion and stenosis of bilateral carotid arteries; E04.1 Nontoxic single thyroid nodule; J32.8 Other chronic sinusitis
CPT/HCPCS: 36415; 70496; 70498; 80048

== ENCOUNTER → 2017-09-05 | Outpatient (CLI) | payer MEDICARE ==
--- NOTE | 2017-09-05 15:55 | Diagnostic Imaging Report ---
PROCEDURE: US Thyroid. TECHNIQUE: Multiple real-time grayscale images were obtained of the thyroid in various projections. INDICATION: Nodule right lobe FINDINGS: There are no previous ultrasound examinations available for comparison. The CTA head and neck exam performed on 08/21/2017 did note a 13 mm low-density nodule in the right lobe of the thyroid. On this exam, there is a 1.6 x 1.3 x 1.3 cm complex predominantly cystic nodule in the right lobe of the thyroid. I do suspect that this corresponds to the finding of the CT exam. This may be related to a degenerating thyroid nodule. I feel it is unlikely that this would be neoplastic in nature. If a tissue diagnosis is desired, then an ultrasound-guided biopsy could be performed. If there is no intervention at this time, then a short-term (three-month) follow-up thyroid ultrasound exam should be performed. A nuclear medicine thyroid scan may not prove worthwhile given the recent administration of intravenous contrast. There is also a 0.5 cm low-density nodule in the left lobe. This has a generally benign appearance. A 3 mm low-density nodule is also seen in the inferior pole of the right lobe. The thyroid gland itself is not enlarged with the right lobe measuring 4.8 x 1.8 x 1.6 cm and the left lobe estimated to be 3.1 x 1.5 x 0.4 cm (normal gland size 4-5 x 2 x 2 cm or less). IMPRESSION: 1. There is a 1.6 x 1.3 x 1.3 cm nodule of mixed echogenicity in the right lobe of the thyroid. This would correspond to the finding of the CT exam. Recommendations as above. 2. The subcentimeter nodules in the inferior pole of the right lobe and the left lobe of the thyroid are most likely benign. Dictated on workstation # [id number]
== END ==
LOC: RAD 13:38
PROVIDERS: ATTEND Physician Assistant Medical
DX: E04.2 Nontoxic multinodular goiter (principal)
CPT/HCPCS: 76536

== ENCOUNTER 2017-11-05 07:44 | Outpatient (RCR) | payer MEDICARE ==
[2017-10-08 11:07] LABS: BASOPHILS % (AUTO) 1 % (0-10); EOSINOPHILS # (AUTO) 0.1 10^3/uL (0.0-0.3); EOSINOPHILS % (AUTO) 2 % (0-10); HEMATOCRIT 33 % (40-54); HEMOGLOBIN 10.4 G/DL (13.3-17.7); LYMPHOCYTES % (AUTO) 26 % (12-44); MEAN CORPUSCULAR HEMOGLOBIN 34 PG (25-34); MEAN CORPUSCULAR HGB CONC 32 G/DL (32-36); MEAN CORPUSCULAR VOLUME 106 FL (80-99); MEAN PLATELET VOLUME 9.7 FL (7.4-10.4); MONOCYTES # (AUTO) 0.3 X 10^3 (0.0-1.0); MONOCYTES % (AUTO) 8 % (0-12); NEUTROPHILS # (AUTO) 2.4 X 10^3 (1.8-7.8); NEUTROPHILS % (AUTO) 63 % (42-75); PLATELET COUNT 144 10^3/uL (130-400); RED BLOOD COUNT 3.08 10^6/uL (4.35-5.85); RED CELL DISTRIBUTION WIDTH 14.2 % (10.0-14.5); WHITE BLOOD COUNT 3.7 10^3/uL (4.3-11.0)
[2017-10-08 11:39] LABS: ALBUMIN 3.7 GM/DL (3.2-4.5); BILIRUBIN,TOTAL 0.4 MG/DL (0.1-1.0); CREATININE SERUM 1.45 MG/DL (0.60-1.30); POTASSIUM 4.4 MMOL/L (3.6-5.0); TOTAL PROTEIN 6.7 GM/DL (6.4-8.2)
[~2017-11-05 07:44] MED LIST changes: +CYANOCOBALAMIN INJ 1000 MCG/ML (CANCER CENTER) ONE
[2017-11-05] MEDS ORDERED: CYANOCOBALAMIN INJ 1000 MCG/ML (CANCER CENTER) ONE (08:09)
== END 2017-11-11 | disposition home or self-care (01) ==
LOC: ONC 07:44
PROVIDERS: ATTEND Internal Medicine Hematology & Oncology
DX: D64.9 Anemia, unspecified (principal); R97.20 Elevated prostate specific antigen [PSA]; N28.89 Other specified disorders of kidney and ureter; I25.10 Atherosclerotic heart disease of native coronary artery without angina pectoris; H90.3 Sensorineural hearing loss, bilateral; I73.9 Peripheral vascular disease, unspecified; Z79.02 Long term (current) use of antithrombotics/antiplatelets; Z79.899 Other long term (current) drug therapy
CPT/HCPCS: 36415; 80053; 82728; 83540; 85025; 96372

== ENCOUNTER 2017-12-03 08:25 | Outpatient (RCR) | payer MEDICARE ==
[~2017-12-03 08:25] MED LIST changes: -CYANOCOBALAMIN INJ 1000 MCG/ML (CANCER CENTER) ONE; -SIMV80TA3 PO; +SIMV80TA5 PO
[2017-12-03] MEDS ORDERED: CYANOCOBALAMIN INJ 1000 MCG/ML (CANCER CENTER) ONE (08:29)
[2017-12-31 10:59] LABS: BASOPHILS % (AUTO) 1 % (0-10); EOSINOPHILS # (AUTO) 0.1 10^3/uL (0.0-0.3); EOSINOPHILS % (AUTO) 2 % (0-10); HEMATOCRIT 30 % (40-54); HEMOGLOBIN 9.8 G/DL (13.3-17.7); LYMPHOCYTES # (AUTO) 1.1 X 10^3 (1.0-4.0); LYMPHOCYTES % (AUTO) 25 % (12-44); MEAN CORPUSCULAR HEMOGLOBIN 35 PG (25-34); MEAN CORPUSCULAR HGB CONC 32 G/DL (32-36); MEAN CORPUSCULAR VOLUME 108 FL (80-99); MEAN PLATELET VOLUME 9.8 FL (7.4-10.4); MONOCYTES # (AUTO) 0.5 X 10^3 (0.0-1.0); MONOCYTES % (AUTO) 10 % (0-12); NEUTROPHILS # (AUTO) 2.8 X 10^3 (1.8-7.8); NEUTROPHILS % (AUTO) 63 % (42-75); PLATELET COUNT 144 10^3/uL (130-400); RED BLOOD COUNT 2.82 10^6/uL (4.35-5.85); RED CELL DISTRIBUTION WIDTH 14.4 % (10.0-14.5); WHITE BLOOD COUNT 4.4 10^3/uL (4.3-11.0)
[2017-12-31 11:21] LABS: ALBUMIN 3.6 GM/DL (3.2-4.5); BILIRUBIN,TOTAL 0.4 MG/DL (0.1-1.0); CREATININE SERUM 1.51 MG/DL (0.60-1.30); POTASSIUM 4.7 MMOL/L (3.6-5.0); TOTAL PROTEIN 6.5 GM/DL (6.4-8.2)
== END 2017-12-31 10:50 | disposition home or self-care (01) ==
LOC: ONC 08:25
PROVIDERS: ATTEND Internal Medicine Hematology & Oncology
DX: D53.9 Nutritional anemia, unspecified (principal); Z79.899 Other long term (current) drug therapy
CPT/HCPCS: 36415; 80053; 82728; 83540; 85025; 96372

== ENCOUNTER 2018-02-25 08:01 | Outpatient (RCR) | payer MEDICARE ==
[~2018-02-25 08:01] MED LIST changes: +CYANOCOBALAMIN INJ 1000 MCG/ML (CANCER CENTER) ONE
[2018-02-25] MEDS ORDERED: CYANOCOBALAMIN INJ 1000 MCG/ML (CANCER CENTER) ONE (08:07)
[2018-03-25 10:48] LABS: BASOPHILS % (AUTO) 1 % (0-10); EOSINOPHILS # (AUTO) 0.1 10^3/uL (0.0-0.3); EOSINOPHILS % (AUTO) 2 % (0-10); HEMATOCRIT 28 % (40-54); HEMOGLOBIN 9.1 G/DL (13.3-17.7); LYMPHOCYTES # (AUTO) 1.1 X 10^3 (1.0-4.0); LYMPHOCYTES % (AUTO) 25 % (12-44); MEAN CORPUSCULAR HEMOGLOBIN 37 PG (25-34); MEAN CORPUSCULAR HGB CONC 33 G/DL (32-36); MEAN CORPUSCULAR VOLUME 110 FL (80-99); MONOCYTES # (AUTO) 0.4 X 10^3 (0.0-1.0); MONOCYTES % (AUTO) 8 % (0-12); NEUTROPHILS # (AUTO) 2.8 X 10^3 (1.8-7.8); NEUTROPHILS % (AUTO) 64 % (42-75); PLATELET COUNT 131 10^3/uL (130-400); RED BLOOD COUNT 2.49 10^6/uL (4.35-5.85); RED CELL DISTRIBUTION WIDTH 14.2 % (10.0-14.5); WHITE BLOOD COUNT 4.4 10^3/uL (4.3-11.0)
[2018-03-25 11:08] LABS: ALBUMIN 3.6 GM/DL (3.2-4.5); BILIRUBIN,TOTAL 0.5 MG/DL (0.1-1.0); CALCIUM 8.9 MG/DL (8.5-10.1); CREATININE SERUM 1.62 MG/DL (0.60-1.30); POTASSIUM 4.7 MMOL/L (3.6-5.0); TOTAL PROTEIN 6.3 GM/DL (6.4-8.2)
== END 2018-03-25 10:39 | disposition home or self-care (01) ==
LOC: ONC 08:01
PROVIDERS: ATTEND Internal Medicine Hematology & Oncology
DX: D53.9 Nutritional anemia, unspecified (principal); Z79.899 Other long term (current) drug therapy
CPT/HCPCS: 36415; 80053; 82728; 83540; 85025; 96372

== ENCOUNTER 2018-06-18 08:27 | Outpatient (RCR) | payer MEDICARE ==
[2018-06-18] MEDS ORDERED: CYANOCOBALAMIN INJ 1000 MCG/ML (CANCER CENTER) ONE (08:29)
== END 2018-06-23 | disposition home or self-care (01) ==
LOC: ONC 08:27
PROVIDERS: ATTEND Internal Medicine Hematology & Oncology
DX: D53.9 Nutritional anemia, unspecified (principal); Z79.899 Other long term (current) drug therapy
CPT/HCPCS: 96372

== ENCOUNTER 2018-08-12 08:21 | Outpatient (RCR) | payer MEDICARE ==
[2018-07-15 10:24] LABS: BASOPHILS % (AUTO) 0 % (0-10); EOSINOPHILS # (AUTO) 0.1 10^3/uL (0.0-0.3); EOSINOPHILS % (AUTO) 1 % (0-10); HEMATOCRIT 29 % (40-54); HEMOGLOBIN 9.2 G/DL (13.3-17.7); LYMPHOCYTES # (AUTO) 0.9 X 10^3 (1.0-4.0); LYMPHOCYTES % (AUTO) 21 % (12-44); MEAN CORPUSCULAR HEMOGLOBIN 36 PG (25-34); MEAN CORPUSCULAR HGB CONC 31 G/DL (32-36); MEAN CORPUSCULAR VOLUME 114 FL (80-99); MEAN PLATELET VOLUME 10.1 FL (7.4-10.4); MONOCYTES # (AUTO) 0.5 X 10^3 (0.0-1.0); MONOCYTES % (AUTO) 10 % (0-12); NEUTROPHILS % (AUTO) 68 % (42-75); PLATELET COUNT 153 10^3/uL (130-400); RED CELL DISTRIBUTION WIDTH 14.2 % (10.0-14.5); WHITE BLOOD COUNT 4.5 10^3/uL (4.3-11.0)
[2018-07-15 10:42] LABS: ALBUMIN 3.7 GM/DL (3.2-4.5); BILIRUBIN,TOTAL 0.5 MG/DL (0.1-1.0); CALCIUM 8.9 MG/DL (8.5-10.1); CREATININE SERUM 1.67 MG/DL (0.60-1.30); POTASSIUM 4.8 MMOL/L (3.6-5.0); TOTAL PROTEIN 6.5 GM/DL (6.4-8.2)
[~2018-08-12 08:21] MED LIST changes: +SIMV80TA21 PO; -SIMV80TA5 PO
[2018-08-12] MEDS ORDERED: CYANOCOBALAMIN INJ 1000 MCG/ML (CANCER CENTER) ONE (09:00)
[2018-08-25] MEDS ORDERED: STL80T PO (10:04)
[2018-08-25] MEDS ORDERED: FERR-84 PO (10:04)
[2018-08-25] MEDS ORDERED: TAMS0.4C98 PO (10:04)
[2018-08-25] MEDS ORDERED: ASPI-983 PO (10:04)
[2018-08-25] MEDS ORDERED: MULT-1102 PO (10:04)
[2018-08-25] MEDS ORDERED: ACET-2267 PO (10:04)
[2018-08-26] MEDS ORDERED: MECL-106 PO (09:14)
[2018-08-26] MEDS ORDERED: METO-370 PO (09:14)
[2018-08-26] MEDS ORDERED: CLOP75TA28 PO (09:14)
== END 2018-10-13 | disposition home or self-care (01) ==
LOC: ONC 08:21
PROVIDERS: ATTEND Internal Medicine Hematology & Oncology
DX: D53.9 Nutritional anemia, unspecified (principal); Z79.899 Other long term (current) drug therapy
CPT/HCPCS: 36415; 80053; 85025; 96372

== ENCOUNTER 2018-08-23 08:49 | Inpatient (IN) | payer MEDICARE ==
[~2018-08-23] VITALS: Ht 170.2 cm; Wt 81.6 kg
[~2018-08-23 08:49] MED LIST changes: -CYANOCOBALAMIN INJ 1000 MCG/ML (CANCER CENTER) ONE
[2018-08-23 09:09] LABS: BASOPHILS % (AUTO) 1 % (0-10); EOSINOPHILS % (AUTO) 1 % (0-10); HEMATOCRIT 33 % (40-54); HEMOGLOBIN 10.2 G/DL (13.3-17.7); LYMPHOCYTES % (AUTO) 17 % (12-44); MEAN CORPUSCULAR HEMOGLOBIN 36 PG (25-34); MEAN CORPUSCULAR HGB CONC 31 G/DL (32-36); MEAN CORPUSCULAR VOLUME 116 FL (80-99); MEAN PLATELET VOLUME 10.4 FL (7.4-10.4); MONOCYTES # (AUTO) 0.5 X 10^3 (0.0-1.0); MONOCYTES % (AUTO) 9 % (0-12); NEUTROPHILS # (AUTO) 4.1 X 10^3 (1.8-7.8); NEUTROPHILS % (AUTO) 72 % (42-75); PLATELET COUNT 173 10^3/uL (130-400); RED CELL DISTRIBUTION WIDTH 15.5 % (10.0-14.5); WHITE BLOOD COUNT 5.7 10^3/uL (4.3-11.0)
[2018-08-23] MEDS ORDERED: ASPIRIN 81 MG CHEW (CHILDREN'S ASA) PO ONE (09:15)
[2018-08-23] MEDS ORDERED: NITROGLYCERIN 0.4 MG SL TABS BTL 25'S SL PRN (09:15)
--- NOTE | 2018-08-23 09:21 | ED Chest Pain ---
General Stated Complaint: CHEST PAIN Source: patient Exam Limitations: no limitations History of Present Illness Date Seen by Provider: Aug 23, 2018 Time Seen by Provider: 09:16 Initial Comments This 87-year-old white male presents with a complaint of chest pain that is been intermittently present for last 4 days. Patient's chest pain this morning precipitated his presentation emergency department. Past medical history includes previous bypass surgery. At this time patient denies chest pain. Allergies and Home Medications Allergies Coded Allergies: No Known Drug Allergies (Unverified , 04/18/11) Home Medications Acetaminophen/Diphenhydramine 1 Each Tablet, 2 EACH PO HS, (Reported) Clopidogrel Bisulfate 75 Mg Tablet, 75 MG PO DAILY, (Reported) Doxazosin Mesylate 8 Mg Tablet, 8 MG PO HS, (Reported) Folic Acid 0.4 Mg Tablet, 400 MCG PO DAILY, (Reported) Magnesium Oxide 400 Mg Tablet, 400 MG PO DAILY, (Reported) Ranitidine HCl 300 Mg Tablet, 300 MG PO BID, (Reported) Simvastatin 80 Mg Tablet, 40 MG PO HS, (Reported) Sotalol Hcl 80 Mg Tablet, 40 MG PO BID, (Reported) Timolol Maleate 10 Ml Drops, 1 DROP OU BID, (Reported) Patient Home Medication List Home Medication List Reviewed: Yes Review of Systems Review of Systems Constitutional: No chills; dizziness; No fever EENTM: No Blurred Vision, No Throat Pain Respiratory: Denies Cough Cardiovascular: See HPI, Chest Pain; Denies Palpitations Gastrointestinal: Denies Abdominal Pain, Denies Nausea, Denies Vomiting Genitourinary: No Symptoms Reported Musculoskeletal: no symptoms reported Skin: no symptoms reported Psychiatric/Neurological: No Symptoms Reported Endocrine: No Symptoms Reported Hematologic/Lymphatic: No Symptoms Reported Past Kqrbdra-Pcnjrd-Vxnhpf Hx Past Med/Social Hx: Reviewed Nursing Past Med/Soc Hx Patient Social History Type Used: Cigarettes Former Smoker, Quit: Nov 24, 1977 Recent Foreign Travel: No Contact w/Someone Who Travel: No Immunizations Up To Date Date of Pneumonia Vaccine: Apr 14, 2015 Date of Influenza Vaccine: Apr 14, 2015 Past Medical History CABG Atrial Fibrillation, High Cholesterol, Hypertension Reproductive Disorders: No Prostate Problems Gastroesophageal Reflux Family Medical History No Pertinent Family Hx Physical Exam Vital Signs Capillary Refill : Height, Weight, BMI Height: 5'7.00" Weight: 175lbs. 0.0oz. [id number]; 27.4 BMI Method:Stated General Appearance: No Apparent Distress, WD/WN HEENT: Normal ENT Inspection Neck: Normal Inspection Respiratory: Lungs Clear Cardiovascular: Regular Rate, Rhythm, No Murmur Gastrointestinal: Normal Bowel Sounds Extremity: Normal Inspection, Normal Range of Motion Neurologic/Psychiatric: Alert, Oriented x3, No Motor/Sensory Deficits, Other ( patient has significant difficulty hearing which is a chronic state for the patient.) Skin: Normal Color, Warm/Dry Progress/Results/Core Measures Results/Orders Lab Results Laboratory Tests Test 08/23/18 09:00 Range/Units White Blood Count 5.7 4.3-11.0 10^3/uL Red Blood Count 2.85 L 4.35-5.85 10^6/uL Hemoglobin 10.2 L 13.3-17.7 G/DL Hematocrit 33 L 40-54 % Mean Corpuscular Volume 116 H 80-99 FL Mean Corpuscular Hemoglobin 36 H 25-34 PG Mean Corpuscular Hemoglobin Concent 31 L 32-36 G/DL Red Cell Distribution Width 15.5 H 10.0-14.5 % Platelet Count 173 130-400 10^3/uL Mean Platelet Volume 10.4 7.4-10.4 FL Neutrophils (%) (Auto) 72 42-75 % Lymphocytes (%) (Auto) 17 12-44 % Monocytes (%) (Auto) 9 0-12 % Eosinophils (%) (Auto) 1 0-10 % Basophils (%) (Auto) 1 0-10 % Neutrophils # (Auto) 4.1 1.8-7.8 X 10^3 Lymphocytes # (Auto) 1.0 1.0-4.0 X 10^3 Monocytes # (Auto) 0.5 0.0-1.0 X 10^3 Eosinophils # (Auto) 0.0 0.0-0.3 10^3/uL Basophils # (Auto) 0.0 0.0-0.1 10^3/uL Sodium Level 138 135-145 MMOL/L Potassium Level 5.0 3.6-5.0 MMOL/L Chloride Level 107 98-107 MMOL/L Carbon Dioxide Level 21 21-32 MMOL/L Anion Gap 10 5-14 MMOL/L Blood Urea Nitrogen 41 H 7-18 MG/DL Creatinine 1.95 H 0.60-1.30 MG/DL Estimat Glomerular Filtration Rate 33 BUN/Creatinine Ratio 21 Glucose Level 123 H 70-105 MG/DL Calcium Level 9.7 8.5-10.1 MG/DL Corrected Calcium 9.6 8.5-10.1 MG/DL Total Bilirubin 0.6 0.1-1.0 MG/DL Aspartate Amino Transf (AST/SGOT) 40 H 5-34 U/L Alanine Aminotransferase (ALT/SGPT) 18 0-55 U/L Alkaline Phosphatase 84 40-136 U/L Troponin I 1.852 *H <0.028 NG/ML Total Protein 7.1 6.4-8.2 GM/DL Albumin 4.1 3.2-4.5 GM/DL My Orders Orders - ELODIA FERRARA MD Cbc With Automated Diff (08/23/18 09:02) Comprehensive Metabolic Panel (08/23/18 09:02) Ua Culture If Indicated (08/23/18 09:02) Ekg Tracing (08/23/18 09:02) Chest 1 View, Ap/Pa Only (08/23/18 09:02) Troponin I (08/23/18 09:02) Aspirin Chewable Tablet (Baby Aspirin Ch (08/23/18 09:15) Nitroglycerin 0.4 Mg Btl 25's (Nitrostat (08/23/18 09:15) Metoprolol Succinate (Xl) Tab (Toprol Xl (08/23/18 10:15) Clopidogrel Tablet (Plavix Tablet) (08/23/18 10:15) Medications Given in ED Current Medications Medications Dose Ordered Sig/[place] Route Start Time Stop Time Status Last Admin Dose Admin Aspirin 325 mg ONCE ONCE PO 08/23/18 09:15 08/23/18 09:16 DC 08/23/18 09:38 325 MG Progress Progress Note : Time: 10:24 Progress Note The patient's troponin was 1.85. Patient's EKG demonstrated right bundle branch block. I called Dr. Black who is cared for the patient in the past. Patient received aspirin, Plavix, and Toprol-XL in the emergency department. Dr. Vega was kind enough to admit the patient. The patient was sent to a telemetry bed. Departure Communication (Admissions) Time/Spoke to Admitting Phy: 10:30 Dr. Vega Time/Spoke to Consulting Phy: 10:31 Dr. Black Impression Primary Impression: Myocardial infarction Qualified Codes: I21.4 - Non-ST elevation (NSTEMI) myocardial infarction Disposition: ADMITTED INPATIENT Condition: Improved Admissions Decision to Admit Reason: Admit from ER (General) Decision to Admit/Date: Aug 23, 2018 Time/Decision to Admit Time: 10:30 Departure-Patient Inst. Referrals: ANDREA PYLE MD (PCP/Family) Primary Care Physician ELODIA FERRARA MD Aug 23, 2018 09:21
[2018-08-23 09:24] LABS: ALBUMIN 4.1 GM/DL (3.2-4.5); BILIRUBIN,TOTAL 0.6 MG/DL (0.1-1.0); CALCIUM 9.7 MG/DL (8.5-10.1); CREATININE SERUM 1.95 MG/DL (0.60-1.30); TOTAL PROTEIN 7.1 GM/DL (6.4-8.2)
--- NOTE | 2018-08-23 09:40 | NUR ---
NO CHEST PAIN
--- NOTE | 2018-08-23 10:05 | Diagnostic Imaging Report ---
Indication: Chest pain. Comparison made to the prior study from 11/02/2009. Findings: The patient is status post previous sternotomy. There is enlargement of the cardiac silhouette. While there does appear to be some chronic interstitial changes within the lungs, the prominence of the interstitial markings of the lung bases is increased the prior examination and there appear to be small pleural effusions. Findings suggest congestive failure with interstitial edema. There is no dense alveolar consolidation. There is no pneumothorax. Impression: 1. Previous sternotomy with apparent bypass grafting. There is enlargement of the cardiac silhouette with new increased prominence of basilar interstitial markings and small effusions suggesting edema and failure. Findings are superimposed on background chronic interstitial changes within the lungs. Dictated by: Dictated on workstation # [id number]
[2018-08-23] MEDS ORDERED: meTOprolol SUCCINATE 100 MG (TOPROL XL) TAB PO ONE (10:15)
[2018-08-23] MEDS ORDERED: CLOPIDOGREL 75 MG (PLAVIX) TABLET PO ONE (10:15)
[2018-08-23] MEDS ORDERED: NS IV 1000 ML 1,000 ML ONE (11:17)
[2018-08-23 11:25] VITALS: BP 151/84
--- NOTE | 2018-08-23 12:30 | Progress Note-Hospitalist ---
Subjective HPI/CC On Admission Date Seen by Provider: Aug 23, 2018 Time Seen by Provider: 11:00 Objective Exam Vital Signs Vital Signs Date Time Temp Pulse Resp B/P (MAP) Pulse Ox O2 Delivery O2 Flow Rate FiO2 08/23/18 15:12 114 22 Room Air 08/23/18 14:00 08/23/18 12:00 96 08/23/18 11:25 97.6 151/84 (106) Capillary Refill : Less Than 3 Seconds General Appearance: No Apparent Distress, WD/WN HEENT: Normal ENT Inspection Neck: Normal Inspection Respiratory: Lungs Clear Cardiovascular: Regular Rate, Rhythm, No Murmur Gastrointestinal: Normal Bowel Sounds Extremity: Normal Inspection, Normal Range of Motion Neurologic/Psychiatric: Alert, Oriented x3, No Motor/Sensory Deficits, Other ( patient has significant difficulty hearing which is a chronic state for the patient.) Skin: Normal Color, Warm/Dry Results/Procedures Lab Laboratory Tests 08/23/18 09:00 Patient resulted labs reviewed. Clinical Quality Measures AMI/AHF: ASA po Prior to arrival: No DVT/VTE Risk/Contraindication: Risk Factor Score Per Nursin RFS Level Per Nursing on Admit: 4+=Very High NESS BEARD DO Aug 23, 2018 12:30
--- NOTE | 2018-08-23 14:25 | Consultation-Cardiology ---
HPI-Cardiology Cardiology Consultation: Date of Consultation 08/23/18 Time Seen by a Provider: 14:30 Date of Admission Attending Physician Kaelyn Vega DO Admitting Physician Jessica Johnson MD Consulting Physician EDMUNDO MARROQUIN MD, MA, FACP, FACC, [facility], CCDS Physician requesting consult: Dr Vega HPI: Chief Complaint: CC: Chest discomfort HPI: 87 yo man with known CAD who has been experiencing dizziness for the last several days, more with posture changes. This is chronic, but increased in the recent past. Has chronic intermittent chests discomfort: L or R parasternal, sometimes sharp, sometimes dull, non-radiating, w/o aggravating or relieving factors, mild to mod, averaging once a week, unchanged in the recent last past, last a week or two ago (according to him). States his was coming to be evaluated in the ER for some issues and he decided to be seen for dizziness at the same time. Troponin was elevated and he was hospitalized. Currently feels well and is not sure why he is here. Review of Systems-Cardiology Review of Systems Constitutional: malaise, tiredness; No weight loss, No other Eyes: No vision change Ears/Nose/Throat: chronic hearing loss (severe) Respiratory: As described under HPI Cardiovascular: As described under HPI Gastrointestinal: No constipation, No diarrhea, No nausea, No vomiting Genitourinary: No dysuria, No hematuria, No urine frequency changes Musculoskeletal: back pain (chronic) Skin: No rash, No ulcerations Psychiatric/Neurological: No seizure, No focal weakness, No syncope Hematologic: No bleeding abnormalities [id number]-Byjjav Hx Patient Social History Alcohol Use: Rarely Uses Recreational Drug Use: No Smoking Status: Former Smoker Former smoker/When Quit: Jul 15, 1954 Type Used: Cigarettes Recent Foreign Travel: No Recent Infectious Disease Expo: No Hospitalization with Isolation: Denies Immunizations Up To Date Date of Pneumonia Vaccine: Sep 22, 2013 Date of Influenza Vaccine: Mar 24, 2018 Past Medical History PMH As described under Assessment. Family Medical History Family Medical History: Does not report fam h/o early CAD or SCD Allergies and Home Medications Allergies Coded Allergies: No Known Drug Allergies (Unverified , 04/18/11) Home Medications Acetaminophen/Diphenhydramine 1 Each Tablet, 2 EACH PO HS, (Reported) Clopidogrel Bisulfate 75 Mg Tablet, 75 MG PO DAILY, (Reported) Doxazosin Mesylate 8 Mg Tablet, 8 MG PO HS, (Reported) Folic Acid 0.4 Mg Tablet, 400 MCG PO DAILY, (Reported) Magnesium Oxide 400 Mg Tablet, 400 MG PO DAILY, (Reported) Ranitidine HCl 300 Mg Tablet, 300 MG PO BID, (Reported) Simvastatin 80 Mg Tablet, 40 MG PO HS, (Reported) Sotalol Hcl 80 Mg Tablet, 40 MG PO BID, (Reported) Timolol Maleate 10 Ml Drops, 1 DROP OU BID, (Reported) Patient Home Medication List Home Medication List Reviewed: Yes Physical Exam-Cardiology Physical Exam Vital Signs/I&O 08/23/18 08/23/18 08/23/18 08/23/18 08:55 10:45 11:24 11:30 Temp 97.3 Pulse 76 60 65 62 Resp 18 18 16 B/P (MAP) 138/77 (97) 146/81 (102) Pulse Ox 94 95 O2 Delivery Nasal Cannula O2 Flow Rate 2.00 08/23/18 08/23/18 08/23/18 08/23/18 11:40 12:00 12:00 13:00 Pulse 58 59 Resp 14 Pulse Ox 96 96 O2 Delivery Room Air Room Air Nasal Cannula O2 Flow Rate 2.00 08/23/18 14:00 Pulse 60 Resp 15 O2 Delivery Nasal Cannula O2 Flow Rate 2.00 Capillary Refill : Less Than 3 Seconds Constitutional: AAO x 3, well-developed, well-nourished HEENT: PERRL, EOMI, hard of hearing Neck: carotid pulses are 2 + bilaterally, with good upstrokes Respiratory: No accessory muscle use; other (good bilat air enty) Cardiovascular: regular rate-rhythm, S1 and S2, systolic murmur (2/6 YASMINE at card base) Gastrointestinal: No tender; soft; No guarding, No rebound; audible bowel sounds Extremities: No clubbing, No cyanosis, No significant edema Neurologic/Psychiatric: oriented x 3, grossly intact, power is 5/5 both on sides Skin: No rash on exposed areas, No ulcerations on exposed areas Data Review Labs Laboratory Tests 08/23/18 09:00: White Blood Count 5.7, Red Blood Count 2.85L, Hemoglobin 10.2L, Hematocrit 33L, Mean Corpuscular Volume 116H, Mean Corpuscular Hemoglobin 36H, Mean Corpuscular Hemoglobin Concent 31L, Red Cell Distribution Width 15.5H, Platelet Count 173, Mean Platelet Volume 10.4, Neutrophils (%) (Auto) 72, Lymphocytes (%) (Auto) 17 , Monocytes (%) (Auto) 9, Eosinophils (%) (Auto) 1, Basophils (%) (Auto) 1, Neutrophils # (Auto) 4.1, Lymphocytes # (Auto) 1.0, Monocytes # (Auto) 0.5, Eosinophils # (Auto) 0.0, Basophils # (Auto) 0.0, Sodium Level 138, Potassium Level 5.0, Chloride Level 107, Carbon Dioxide Level 21, Anion Gap 10, Blood Urea Nitrogen 41H, Creatinine 1.95H, Estimat Glomerular Filtration Rate 33, BUN/ Creatinine Ratio 21, Glucose Level 123H, Calcium Level 9.7, Corrected Calcium 9.6, Total Bilirubin 0.6, Aspartate Amino Transf (AST/SGOT) 40H, Alanine Aminotransferase (ALT/SGPT) 18, Alkaline Phosphatase 84, Troponin I 1.852*H, Total Protein 7.1, Albumin 4.1 08/23/18 11:45: Troponin I 1.888*H Laboratory Tests 08/23/18 09:00 A/P-Cardiology Assessment/Admission Diagnosis Dizziness, probably medication-related Elevated troponin, flat, probably due to chronic myocardial injury and chronic kidney disease CAD. S/p CABG and subsequent PCIs (detailed records unavailable). Last cath record is of 12/10/2008: Occluded prox LAD and prox RCA; patent SVG to LAD and to PDA, AARON unused PAD, s/p R leg bypass surgery (according to the patient, records unavailable); h /o PCI to L SFA and popliteal in 2012 PAF, according to some of Dr Mccann's office notes. Apparently, this has been treated with sotalol and patient is not considered suitable for OAC due to symptomatic anemia and h/o retinal bleeds Carotid arterial disease. S/p R CEA. Subsequent f/u with Dr Mccann (records seem to indicate mod disease on subsequent follow ups) Thyroid nodules, followed by pcp (Dr Johnson) Echo 09/27/16 (Dr Reynoso, [place], [place]): sclerotic AoV, mild to mod LVH, LVEF 48%, grade 2 abbott dysfunction, possible small VSD with L-to-R shunt, very enlarged LA mild MR, mild elev of PASP, very dilated RV and RA with mild TR Severe hardness of hearing CKD 3 and R kidney mass, followed by Dr Gardner Recurrent symptomatic multifactorial macrocytic anemia, followed by Dr Gardner Chronic RBBB Hypotension that improved after d/c doxazosin in early Mar 2018. Had been on doxazosin for prostate issues Discussion and Recomendations * Check orthostatic bp * iv fluids * Echo * If remains clinically stable, then consider early discharge Clinical Quality Measures AMI/AHF: ASA po Prior to arrival: No DVT/VTE Risk/Contraindication: Risk Factor Score Per Nursin RFS Level Per Nursing on Admit: 4+=Very High EDMUNDO MARROQUIN MD FACP [facility] Aug 23, 2018 14:25
[2018-08-23] MEDS ORDERED: ACETAMINOPHEN 500 MG TAB (TYLENOL) PO PRN (14:30)
[2018-08-23] MEDS ORDERED: ONDANSETRON 4 MG/2 ML (SDV) Z0FRAN IV PRN (14:30)
[2018-08-23] MEDS ORDERED: CATHETER FLUSH 10 ML SYR IV PRN (14:45)
[2018-08-23 15:00] LABS: BILIRUBIN,URINE NEGATIVE (NEGATIVE); CLARITY,URINE CLEAR; COLOR,URINE YELLOW; GLUCOSE, URINE (UA) NEGATIVE (NEGATIVE); KETONES,URINE NEGATIVE (NEGATIVE); LEUKOCYTE ESTERASE ,URINE 1+ (NEGATIVE); NITRITE,URINE NEGATIVE (NEGATIVE); PH,URINE 5 (5-9); PROTEIN,URINE 4+ (NEGATIVE); UROBILINOGEN,URINE NORMAL (NORMAL)
[2018-08-23] MEDS: NS IV 1000 ML 1,000 ML IV SCH (15:01)
[2018-08-23 15:09] LABS: AMORPHOUS SEDIMENT,UR FEW AMOR URATES /LPF; BACTERIA,URINE NEGATIVE /HPF; SQUAMOUS EPITHELIAL CELL,UR RARE /HPF
[2018-08-23 15:10] LABS: HYALINE CASTS, URINE 0-2 /LPF
--- NOTE | 2018-08-23 15:30 | History & Physical-Hospitalist ---
History of Present Illness HPI/Chief Complaint CC: NSTEMI subacute HPI: This is an 87yoWM clinic patient of Dr Johnson who presented to the ER 4 days after an episode of chest pain but began having a bit of shortness of breath so he came to the ER. Checked labs and EKG and ER w/u. Will await for Cardiology evaluation. Source: patient, family Exam Limitations: no limitations, other (presbycusis) Date Seen 08/23/18 Time Seen by a Provider: 11:40 Attending Physician Kaelyn Vega Holly A MD Referring Physician Date of Admission Aug 23, 2018 at 10:00 Home Medications & Allergies Home Medications Reviewed patient Home Medication Reconciliation performed by pharmacy medication reconciliations electrical and instrument technician and/or nursing. Patients Allergies have been reviewed. Allergies Allergies Coded Allergies No Known Drug Allergies (Ulajktnops27/26/11) Past Vffyeaz-Hcjocj-Gfktnt Hx Past Med/Social Hx: Reviewed Nursing Past Med/Soc Hx, Reviewed and Corrections made Patient Social History Marrital Status: Employed/Student: retired Alcohol Use: Rarely Uses Recreational Drug Use: No Smoking Status: Former Smoker Former Smoker, Quit: Nov 24, 1977 Type Used: Cigarettes Recent Foreign Travel: No Contact w/other who traveled: No Recent Hopitalizations: No Recent Infectious Disease Expo: No Immunizations Up To Date Date of Pneumonia Vaccine: Sep 22, 2013 Date of Influenza Vaccine: Mar 24, 2018 Past Medical History Surgeries: CABG Cardiac: Atrial Fibrillation, High Cholesterol, Hypertension Reproductive: No Genitourinary: Prostate Problems Gastrointestinal: Gastroesophageal Reflux History of Blood Disorders: Yes Family History No Pertinent Family Hx Review of Systems Constitutional: see HPI, weakness EENTM: no symptoms reported Respiratory: dyspnea on exertion Cardiovascular: chest pain Gastrointestinal: no symptoms reported Genitourinary: no symptoms reported Musculoskeletal: no symptoms reported Skin: no symptoms reported Psychiatric/Neurological: No Symptoms Reported All Other Systems Reviewed Negative Unless Noted: Yes Physical Exam Physical Exam Vital Signs Vital Signs - First Documented 08/23/18 08/23/18 08:55 11:25 Temp 97.3 Pulse 76 Resp 18 B/P (MAP) 138/77 (97) Pulse Ox 94 O2 Delivery Room Air Capillary Refill : Less Than 3 Seconds Height, Weight, BMI Height: 5'7.00" Weight: 180lbs. 0.2oz. 81.675555ud; 28.2 BMI Method:Stated General Appearance: No Apparent Distress, WD/WN, Chronically ill, Obese Eyes: Right Eye Normal Inspection, Right Eye PERRL HEENT: PERRL/EOMI, Normal ENT Inspection, Pharynx Normal, Moist Mucous Membranes, Other (HOPI) Neck: Full Range of Motion, Normal Inspection, Non Tender Respiratory: Chest Non Tender, Lungs Clear, Normal Breath Sounds, No Accessory Muscle Use, No Respiratory Distress Cardiovascular: Regular Rate, Rhythm, No Edema, No Gallop, No JVD, No Murmur, Normal Peripheral Pulses Gastrointestinal: Normal Bowel Sounds, No Organomegaly, No Pulsatile Mass, Non Tender, Soft Back: Normal Inspection, No CVA Tenderness, No Vertebral Tenderness Extremity: Normal Capillary Refill, Normal Inspection, Normal Range of Motion, Non Tender, No Calf Tenderness, No Pedal Edema Neurologic/Psychiatric: Alert, Oriented x3, No Motor/Sensory Deficits, Normal Mood/Affect Skin: Normal Color, Warm/Dry Lymphatic: No Adenopathy Results Results/Procedures Labs Laboratory Tests 08/23/18 09:00 Patient resulted labs reviewed. 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
[2018-08-23 20:00] VITALS: BP 139/69
[2018-08-23] MEDS: SOTALOL 80 MG (BETAPACE) TAB PO SCH (21:16)
[2018-08-23] MEDS ORDERED: ACETAMINOPHEN 500 MG TAB (TYLENOL) PO ONE (23:15)
[2018-08-23] MEDS ORDERED: diphenhydrAMINE 25 MG TAB (BENADRYL) PO ONE ×2 (23:15→23:25)
--- NOTE | 2018-08-23 23:30 | NUR ---
Patient yelling out, requesting to get clothes on so can leave. Patient alert and oriented to name only. Reoriented to place and situation. Patient is very hard of hearing, white board used to communicate diagnosis, location and to wait for the doctor to discharge. Dr. Vega notified and order to give tylenol PM as patient normally takes at night. Will continue to monitor.
[2018-08-24] VITALS: BP 137/79
[2018-08-24 03:56] LABS: BASOPHILS % (AUTO) 0 % (0-10); EOSINOPHILS % (AUTO) 0 % (0-10); HEMATOCRIT 33 % (40-54); LYMPHOCYTES # (AUTO) 1.1 X 10^3 (1.0-4.0); LYMPHOCYTES % (AUTO) 16 % (12-44); MEAN CORPUSCULAR HEMOGLOBIN 35 PG (25-34); MEAN CORPUSCULAR HGB CONC 30 G/DL (32-36); MEAN CORPUSCULAR VOLUME 116 FL (80-99); MONOCYTES # (AUTO) 0.4 X 10^3 (0.0-1.0); MONOCYTES % (AUTO) 5 % (0-12); NEUTROPHILS # (AUTO) 5.3 X 10^3 (1.8-7.8); NEUTROPHILS % (AUTO) 78 % (42-75); PLATELET COUNT 177 10^3/uL (130-400); RED CELL DISTRIBUTION WIDTH 15.6 % (10.0-14.5); WHITE BLOOD COUNT 6.8 10^3/uL (4.3-11.0)
[2018-08-24 04:00] VITALS: BP 149/77
[2018-08-24 04:29] LABS: ALBUMIN 3.9 GM/DL (3.2-4.5); BILIRUBIN,TOTAL 0.7 MG/DL (0.1-1.0); CALCIUM 9.4 MG/DL (8.5-10.1); CREATININE SERUM 1.95 MG/DL (0.60-1.30); POTASSIUM 4.6 MMOL/L (3.6-5.0); TOTAL PROTEIN 6.8 GM/DL (6.4-8.2)
--- NOTE | 2018-08-24 06:00 | NUR ---
Patient increasingly agitated, states is getting up and leaving and looking for shoes. This RN uses white board to explain in the hospital and diagnosis. Patient states he doesn't believe this RN and is going to call some guys. Dr. Gomez present on floor and medications ordered to help with agitation. Patient given meds and placed back in bed. VSS and will continue to monitor.
[2018-08-24] MEDS ORDERED: HALOPERIDOL 5 MG/ML (HALDOL) AMP ONE (06:04)
[2018-08-24] MEDS ORDERED: LORazepam INJ 2 MG/ML (ATIVAN) VIAL ONE (06:08)
[2018-08-24] MEDS ORDERED: morphine INJ 4 MG/ML 1 ML (VIAL/SYRINGE) ONE (06:13)
--- NOTE | 2018-08-24 06:27 | Pulmonary Consultation ---
History of Present Illness History of Present Illness Date of Consultation 08/24/18 06:22 Time Seen by Provider: 06:34 Date of Admission History of Present Illness 87yo with hx of CAD presented to ED secondary to worsening dizziness over the last several days along with nonradiating 8/10 midsternal CP. Pt was found to have an elevated troponin and was admitted to ICU. I am consulted for ICU management. He has no previous episodes like this. Allergies and Home Medications Allergies Coded Allergies: No Known Drug Allergies (Unverified , 04/18/11) Home Medications Acetaminophen 500 Mg Tablet, 500-1,000 MG PO Q6H PRN for PAIN-MILD, (Reported) Acetaminophen/Diphenhydramine 1 Each Tablet, 2 TAB PO HS, (Reported) Aspirin 81 Mg Tablet.dr, 81 MG PO Q48H, (Reported) Clopidogrel Bisulfate 75 Mg Tablet, 75 MG PO DAILY Prescribed by: ANDREA PYLE on 08/26/18913 Ferrous Sulfate 325 Mg Tablet, 325 MG PO BID, (Reported) Meclizine HCl 25 Mg Tablet, 25 MG PO TID PRN for dizziness Prescribed by: ANDREA PYLE on 08/26/18913 Metoprolol Succinate 50 Mg Tab.er.24h, 50 MG PO DAILY Prescribed by: ANDREA PYLE on 08/26/18913 Multivit-Min/Folic/Vit K/Lycop 1 Each Tablet, 1 TAB PO DAILY, (Reported) Ranitidine HCl 300 Mg Tablet, 300 MG PO BID, (Reported) Simvastatin 80 Mg Tablet, 40 MG PO HS, (Reported) TAKES 1/2 (80MG) TABLET Sotalol HCl 80 Mg Tablet, 40 MG PO BID, (Reported) TAKES 1/2 (80MG) TABLET Tamsulosin HCl 0.4 Mg Cap, 0.4 MG PO 1800, (Reported) Past Eigthap-Tnxuig-Nqcqkb Hx Past Med/Social Hx: Reviewed Nursing Past Med/Soc Hx, Reviewed and Corrections made Patient Social History Alcohol Use: Rarely Uses Recreational Drug Use: No Smoking Status: Former Smoker Type Used: Cigarettes Former Smoker, Quit: Nov 24, 1977 Recent Foreign Travel: No Contact w/Someone Who Travel: No Recent Infectious Disease Expo: No Recent Hopitalizations: No Physical Abuse: No Sexual Abuse: No Immunizations Up To Date Date of Pneumonia Vaccine: Sep 22, 2013 Date of Influenza Vaccine: Mar 24, 2018 Past Medical History Surgeries: Yes (BILAT CTR, CATARACTS, HEMORRHOIDECTOMY, TRIPLE BYPASS) CABG Respiratory: No Cardiac: Yes (STENTS, TRIPLE BYPASS) Atrial Fibrillation, High Cholesterol, Hypertension Neurological: No Reproductive Disorders: No Prostate Problems Gastrointestinal: Yes Gastroesophageal Reflux Musculoskeletal: Yes Endocrine: No Cancer: No Psychosocial: No Blood Disorders: Yes Family Medical History No Pertinent Family Hx Review of Systems Time Seen by Provider: 06:34 Constitutional: Sweats, Weakness, Malaise; No: Fever, Chills, Other Eyes: No: Pain, Vision change, Conjunctivae inflammation, Eyelid inflammation, Other, Redness ENT: Nose congestion; No: Ear pain, Ear discharge, Nose pain, Nose discharge, Mouth pain, Mouth swelling, Throat pain, Throat swelling, Other Respiratory: Cough, Dry, Shortness of breath, SOB with excertion, Wheezing; No : Hemoptysis, Pleuritic Pain Cardiovascular: Chest Pain, Palpitations, Paroxysmal Noc. Dyspnea, Edema, Lt Headedness Gastrointestinal: Nausea; No: Vomiting, Abdominal Pain, Diarrhea, Constipation , Melena, Hematochezia, Other Neurological: Weakness Sepsis Event Evaluation Height, Weight, BMI Height: 5'7.00" Weight: 180lbs. 0.2oz. 81.110120wt; 28.2 BMI Method:Stated Exam Exam Vital Signs Date Time Temp Pulse Resp B/P (MAP) Pulse Ox O2 Delivery O2 Flow Rate FiO2 08/24/18 04:15 Room Air 08/24/18 04:00 61 17 149/77 (101) 95 Room Air 08/24/18 04:00 98.0 08/24/18 01:00 66 08/24/18 00:00 Room Air 08/24/18 00:00 97.6 08/24/18 00:00 64 27 137/79 (98) 98 Room Air 08/23/18 21:00 Room Air 08/23/18 20:00 Room Air 08/23/18 20:00 59 19 139/69 (92) 96 Room Air 08/23/18 20:00 97.5 08/23/18 19:00 55 08/23/18 16:00 96 Room Air 08/23/18 15:12 114 22 Room Air 08/23/18 14:00 60 15 Room Air 08/23/18 14:00 Room Air 08/23/18 13:00 59 08/23/18 12:00 58 14 Room Air 08/23/18 12:00 96 Room Air 08/23/18 11:40 96 Room Air 08/23/18 11:30 62 16 Room Air 08/23/18 11:25 97.6 62 13 151/84 (106) 97 Room Air 08/23/18 11:24 65 08/23/18 10:45 60 18 146/81 (102) 95 08/23/18 08:55 97.3 76 18 138/77 (97) 94 I & O 08/24/18 07:00 Intake Total 160 ml Output Total 300 ml Balance -140 ml Height & Weight Height: 5'7.00" Weight: 180lbs. 0.2oz. 81.443270nj; 28.2 BMI Method:Stated General Appearance: WD/WN, Anxious, Chronically ill, Moderate Distress, Obese, Other (combative trying to leave and is confused. ) HEENT: PERRL/EOMI, Normal ENT Inspection, Pharynx Normal, Moist Mucous Membranes, Other (SOBOBA) Neck: Full Range of Motion, Normal Inspection, Non Tender Respiratory: Chest Non Tender, Lungs Clear, Normal Breath Sounds, No Accessory Muscle Use, No Respiratory Distress Cardiovascular: Regular Rate, Rhythm, No Edema, No Gallop, No JVD, No Murmur, Normal Peripheral Pulses Capillary Refill: Less Than 3 Seconds Extremity: Normal Capillary Refill, Normal Inspection, Normal Range of Motion, Non Tender, No Calf Tenderness, No Pedal Edema Neurologic/Psychiatric: Alert, Oriented x3, No Motor/Sensory Deficits, Normal Mood/Affect Skin: Normal Color, Warm/Dry Lymphatic: No Adenopathy Results Lab Laboratory Tests 08/23/18 09:00 08/24/18 03:30 Assessment/Plan Assessment/Plan NSTEMI -Cardiology following Agitation/confusion/combative -- pt trying to leave and is very confused and will not lay down in bed. 3 RNs at bedside trying to prevent him from falling. -Haldol 5mg IV x1 - then Q6 PRN -2mg of Ativan x1 -4mg of morphine x 1 - then 1-2 Q2 PRN -Will start Precedex gtt -Start Risperdal 1mg PO BID (hold for sedation) Bilateral pulmonary infiltrates -Monitor -Check BNP -Echo is pending Metabolic acidosis -repeat LA -increase IVF to 100cc/hr Anemia -Monitor Acute renal failure -IVF DARRYL COLLIER DO Aug 24, 2018 06:27
[2018-08-24] MEDS ORDERED: morphine INJ 4 MG/ML 1 ML (VIAL/SYRINGE) IVP PRN ×2 (06:30→08:30)
[2018-08-24] MEDS ORDERED: DEXMEDETOMIDINE INJECTION 200 MCG in NS (IVPB) 50 ML IV SCH (06:30)
[2018-08-24] MEDS ORDERED: HALOPERIDOL 5 MG/ML (HALDOL) AMP IV PRN (06:30)
[2018-08-24] MEDS ORDERED: NS (IVPB) 50 ML ONE (06:35)
[2018-08-24] MEDS: NS IV 1000 ML 1,000 ML IV SCH (06:45)
[2018-08-24 07:58] VITALS: BP 113/57
--- NOTE | 2018-08-24 08:32 | Diagnostic Imaging Report ---
Indication: Chest pain. Comparison: 08/23/2018 Findings: Single frontal radiographic view of the chest was obtained and again demonstrates mild cardiomegaly and mild prominence of pulmonary vasculature. Interstitial opacities are improved. Small effusions cannot be excluded. No pneumothorax is seen on either side. Sternotomy wires and calcified aortic atherosclerosis are noted. Bony structures show no gross acute abnormalities. Impression: 1. Interval improved interstitial opacities, which may be on the basis of improving pulmonary edema. 2. Probable small bibasilar effusions. 3. Residual mild cardiomegaly and probable mild pulmonary vascular congestion. Dictated by: Dictated on workstation # [id number]
[2018-08-24] MEDS ORDERED: ASPIRIN 325 MG (5 GR) TABLET PO SCH (09:00)
[2018-08-24] MEDS: risperiDONE 1 MG (RisperDAL) TAB PO SCH ×2 (09:00→23:40)
[2018-08-24] MEDS ORDERED: meTOprolol SUCCINATE 100 MG (TOPROL XL) TAB PO SCH (09:00)
[2018-08-24] MEDS: SOTALOL 80 MG (BETAPACE) TAB PO SCH ×2 (09:00→21:04)
[2018-08-24] MEDS: CLOPIDOGREL 75 MG (PLAVIX) TABLET PO SCH (09:00)
--- OUTSIDE RECORDS SUMMARY | 2018-08-24 12:16 | XMS REPORT | CCD ---
Author Author Jessica Johnson MD, [facility] Address [address] [place] [address] Phone Care Team Providers Care Cement Mason Helper Name Role Phone PP Unavailable CCM Unavailable Summary Purpose Interface Exchange Insurance Providers Payer name Policy type / Coverage type Covered green party ID Effective Begin Date Effective End Date WPS Medicare Part B Medicare Part B [id number] Unknown [facility] Medicare Part B [id number] Unknown Family history Brother Diagnosis Age At Onset Myocardial infarction Unknown Father Diagnosis Age At Onset Myocardial infarction Unknown Mother Diagnosis Age At Onset Leukemia Unknown Sister Diagnosis Age At Onset cardiac stent Unknown Social History Social History Element Codes Description Effective Dates Marital status Unknown Lor 03/14/2016 Number of children Unknown 4 03/14/2016 Employment Unknown Retired 03/14/[address]: 1649569 Former smoker Quit 1977 03/14/[address]: 961008201 Never drinks alcohol 03/14/2016 Has the patient ever used illegal drugs? Unknown Has never used illegal drugs 03/14/2016 Allergies, Adverse Reactions, Alerts Substance Reaction Codes Entered Date Inactivated Date Status NO KNOWN DRUG ALLERGIES Unknown 03/14/2016 No Inactive Date Active Past Medical History Illness Codes Condition Status Onset Date Resolved Date Encounter for general adult medical examination with abnormal findings ICD-9: V70.0 ICD-10: Z00.01 Active 02/12/2018 Unknown Essential (primary) hypertension ICD-9: 401.1 ICD-10: I10 Active 03/13/2016 Unknown Impacted cerumen, bilateral ICD-9: 389.8 ICD-10: H61.23 Active 01/22/2018 Unknown Low back pain ICD-9: 724.2 ICD-10: M54.5 Active 01/22/2018 Unknown Mixed conductive and sensorineural hearing loss, 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 ICD-10: H90.6 Active 01/22/2018 Unknown Mixed hyperlipidemia ICD-9: 272.2 ICD-10: E78.2 Active 03/13/2016 Unknown Other iron deficiency anemias ICD-9: 280.1 ICD-10: D50.8 Active 11/07/2016 Unknown Primary generalized (osteo)arthritis ICD-9: 715.09 ICD-10: M15.0 Active 01/22/2018 Unknown Encounter for immunization ICD-9: V04.81 ICD-10: Z23 Active 03/13/2016 Unknown Problems Condition Codes Effective Dates Condition Status Encounter for general adult medical examination with abnormal findings ICD-9: V70.0 ICD-10: Z00.01 02/12/2018 Active Essential (primary) hypertension ICD-9: 401.1 ICD-10: I10 03/13/2016 Active Impacted cerumen, bilateral ICD-9: 389.8 ICD-10: H61.23 01/22/2018 Active Low back pain ICD-9: 724.2 ICD-10: M54.5 01/22/2018 Active Mixed conductive and sensorineural hearing loss, 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 ICD-10: H90.6 01/22/2018 Active Mixed hyperlipidemia ICD-9: 272.2 ICD-10: E78.2 03/13/2016 Active Other iron deficiency anemias ICD-9: 280.1 ICD-10: D50.8 11/07/2016 Active Primary generalized (osteo)arthritis ICD-9: 715.09 ICD-10: M15.0 01/22/2018 Active Encounter for immunization ICD-9: V04.81 ICD-10: Z23 03/13/2016 Active Medications Medication Codes Instructions Start Date Stop Date Status Fill Instructions ranitidine 300 mg tablet RxNorm: 829765 1 Tablet(s) PO daily No Stop Date Active nystatin 100,000 unit/mL oral suspension RxNorm: 400577 5 Milliliter(s) PO swish and swallow four times a day and brush dentures with this mix one time a day and then soak 11/07/2016 11/13/2016 Inactive please deliver to the patient's home sotalol 80 mg tablet RxNorm: 403825 1/2 Tablet(s) PO BID 201505/28/2016 Inactive doxazosin 8 mg tablet RxNorm: 692301 1 Tablet(s) PO QHS No Start Date Active timolol maleate 0.25 % eye drops RxNorm: 903666 1 Drop(s) OPH BID No Start Date Active Vitamin B-12 1,000 mcg/mL injection solution RxNorm: 221847 1 Milliliter(s) Inj monthly No Start Date Active Iron (ferrous sulfate) 325 mg (65 mg iron) tablet RxNorm: 304557 1 Tablet(s) PO BID No Start Date Active simvastatin 80 mg tablet RxNorm: 700517 1/2 Tablet(s) PO daily No Start Date Active latanoprost (PF) ophthalmic (eye) RxNorm: ophthalmic (eye) No Start Date Active Men's One Daily tablet RxNorm: 1 Tablet(s) PO daily No Start Date Active clopidogrel 75 mg tablet RxNorm: 461286 1 Tablet(s) PO daily No Start Date 01/21/2018 Inactive magnesium oxide 500 mg tablet RxNorm: 333322 1 Tablet(s) PO daily No Start Date 01/21/2018 Inactive ranitidine 300 mg tablet RxNorm: 780593 1 Tablet(s) PO BID No Start Date 01/21/2018 Inactive folic acid 400 mcg tablet RxNorm: 315254 1 Tablet(s) PO daily No Start Date 01/21/2018 Inactive sotalol 80 mg tablet RxNorm: 933813 1/2 Tablet(s) PO BID No Start Date 05/14/2016 Inactive tolterodine ER 4 mg capsule,extended release 24 hr RxNorm: 935354 1 Capsule(s) PO daily No Start Date 01/21/2018 Inactive Medication Administered No Medication Administered data Immunizations Vaccine Codes Date Status Influenza CVX: 141 03/14/2016 completed Assessments Condition Codes Effective Dates Encounter for general adult medical examination with abnormal findings ICD-10: Z00.01 ICD-9: V70.0 02/12/2018 Mixed conductive and sensorineural hearing loss, bilateral ICD-10: H90.6 ICD-9: 389.22 01/22/2018 Impacted cerumen, bilateral ICD-10: H61.23 ICD-9: 389.8 01/22/2018 Mixed hyperlipidemia ICD-10: E78.2 ICD-9: 272.2 01/22/2018 Low back pain ICD-10: M54.5 ICD-9: 724.2 01/22/2018 Other iron deficiency anemias ICD-10: D50.8 ICD-9: 280.1 01/22/2018 Essential (primary) hypertension ICD-10: I10 ICD-9: 401.1 01/22/2018 Primary generalized (osteo)arthritis ICD-10: M15.0 ICD-9: 715.09 01/22/2018 Benign prostatic hyperplasia with lower urinary tract symptoms ICD-10: N40.1 ICD-9: 600.01 07/11/2016 Encounter for immunization ICD-10: Z23 ICD-9: V04.81 03/14/2016 Reason For Visit Reason For Visit Effective Dates Notes Annual Medicare Wellness Exam 02/12/2018 hypertension 01/22/2018 hypertension 07/25/2017 hypertension 03/04/2017 hypertension 11/07/2016 hypertension 07/11/2016 hypertension 03/14/2016 Results No Results data Review of Systems System Result Effective Dates Constitutional No recent illness 2017 Constitutional No chills 02/12/2018 Constitutional No diaphoresis 02/12/2018 Constitutional No fever 02/12/2018 Eyes No eye erythema 02/12/2018 Ears/Nose/Throat/Neck No nasal discharge 02/12/2018 Cardiovascular No chest pain/pressure Cardiovascular No dyspnea 02/12/2018 Respiratory No cough 02/12/2018 Respiratory No dyspnea 02/12/2018 Neurologic No alteration of consciousness 02/12/2018 Neurologic No mental status change 2017 Constitutional No recent illness 2017 Constitutional No chills 01/22/2018 Constitutional No fatigue 01/22/2018 Constitutional No fever 01/22/2018 Constitutional No insomnia 01/22/2018 Constitutional No malaise 01/22/2018 Eyes No blindness 01/22/2018 Eyes No vision change 01/22/2018 Ears/Nose/Throat/Neck No dental pain 06/2017 Ears/Nose/Throat/Neck No dizziness 2017 Ears/Nose/Throat/Neck No dysphagia 2017 Ears/Nose/Throat/Neck No headache 2017 Ears/Nose/Throat/Neck hearing loss 2017 Ears/Nose/Throat/Neck No nasal allergies 01/22/2018 Ears/Nose/Throat/Neck No sore throat 06/2017 Ears/Nose/Throat/Neck No postnasal drip 01/22/2018 Ears/Nose/Throat/Neck No sinus congestion 01/22/2018 Cardiovascular No chest pain/pressure 06/2017 Cardiovascular No dyspnea 01/22/2018 Cardiovascular No edema 01/22/2018 Cardiovascular No exercise intolerance Cardiovascular No fatigue 01/22/2018 Cardiovascular No near-syncope/dizziness 01/22/2018 Respiratory No chest tightness 2017 Respiratory No cough 01/22/2018 Respiratory No dyspnea 01/22/2018 Respiratory No pedal edema 01/22/2018 Gastrointestinal No abdominal pain 2017 Gastrointestinal No constipation 2017 Gastrointestinal No diarrhea 01/22/2018 Gastrointestinal No gastroesophageal reflux 01/22/2018 Gastrointestinal No nausea 01/22/2018 Gastrointestinal No vomiting 01/22/2018 Genitourinary/Nephrology No dysuria 01/22 Genitourinary/Nephrology nocturia 2017 Genitourinary/Nephrology No urinary incontinence 01/22/2018 Musculoskeletal stiffness 01/22/2018 Musculoskeletal No swelling 01/22/2018 Musculoskeletal No muscle weakness 2017 Dermatologic No rash 01/22/2018 Dermatologic No sores 01/22/2018 Dermatologic No scar 01/22/2018 Neurologic No dizziness 01/22/2018 Neurologic No headache 01/22/2018 Neurologic No neck pain 01/22/2018 Neurologic No syncope 01/22/2018 Psychiatric No anxiety 01/22/2018 Psychiatric No depression 01/22/2018 Musculoskeletal back pain 01/22/2018 Musculoskeletal joint complaint 2017 Constitutional No recent illness 2017 Constitutional No chills 07/25/2017 Constitutional No fatigue 07/25/2017 Constitutional No fever 07/25/2017 Constitutional No insomnia 07/25/2017 Constitutional No malaise 07/25/2017 Eyes No blindness 07/25/2017 Eyes No vision change 07/25/2017 Ears/Nose/Throat/Neck No dental pain 06/2017 Ears/Nose/Throat/Neck No dizziness 2017 Ears/Nose/Throat/Neck No dysphagia 2017 Ears/Nose/Throat/Neck No headache 2017 Ears/Nose/Throat/Neck No hearing loss 06/2017 Ears/Nose/Throat/Neck No nasal allergies 07/25/2017 Ears/Nose/Throat/Neck No sore throat 06/2017 Ears/Nose/Throat/Neck No postnasal drip 07/25/2017 Ears/Nose/Throat/Neck No sinus congestion 07/25/2017 Cardiovascular No chest pain/pressure 06/2017 Cardiovascular No dyspnea 07/25/2017 Cardiovascular No edema 07/25/2017 Cardiovascular No exercise intolerance Cardiovascular No fatigue 07/25/2017 Cardiovascular No near-syncope/dizziness 07/25/2017 Respiratory No chest tightness 2017 Respiratory No cough 07/25/2017 Respiratory No dyspnea 07/25/2017 Respiratory No pedal edema 07/25/2017 Gastrointestinal No abdominal pain 2017 Gastrointestinal No constipation 2017 Gastrointestinal No diarrhea 07/25/2017 Gastrointestinal No gastroesophageal reflux 07/25/2017 Gastrointestinal No nausea 07/25/2017 Gastrointestinal No vomiting 07/25/2017 Genitourinary/Nephrology No dysuria 07/25 Genitourinary/Nephrology nocturia 2017 Genitourinary/Nephrology No urinary incontinence 07/25/2017 Musculoskeletal No stiffness 07/25/2017 Musculoskeletal No swelling 07/25/2017 Musculoskeletal No muscle weakness 2017 Musculoskeletal No myalgias 07/25/2017 Dermatologic No rash 07/25/2017 Dermatologic No sores 07/25/2017 Dermatologic No scar 07/25/2017 Neurologic No dizziness 07/25/2017 Neurologic No headache 07/25/2017 Neurologic No neck pain 07/25/2017 Neurologic No syncope 07/25/2017 Psychiatric No anxiety 07/25/2017 Psychiatric No depression 07/25/2017 Hematologic/Lymphatic anemia 07/25/2017 Constitutional No recent illness 2016 Constitutional No chills 03/04/2017 Constitutional No fatigue 03/04/2017 Constitutional No fever 03/04/2017 Constitutional No insomnia 03/04/2017 Constitutional No malaise 03/04/2017 Eyes No blindness 03/04/2017 Eyes No vision change 03/04/2017 Ears/Nose/Throat/Neck No dental pain 04/2017 Ears/Nose/Throat/Neck No dizziness 2016 Ears/Nose/Throat/Neck No dysphagia 2016 Ears/Nose/Throat/Neck No headache 2016 Ears/Nose/Throat/Neck No hearing loss 04/2017 Ears/Nose/Throat/Neck No nasal allergies 03/04/2017 Ears/Nose/Throat/Neck No sore throat 04/2017 Ears/Nose/Throat/Neck No postnasal drip 03/04/2017 Ears/Nose/Throat/Neck No sinus congestion 03/04/2017 Cardiovascular No chest pain/pressure 04/2017 Cardiovascular No dyspnea 03/04/2017 Cardiovascular No edema 03/04/2017 Cardiovascular No exercise intolerance Cardiovascular No fatigue 03/04/2017 Cardiovascular No near-syncope/dizziness 03/04/2017 Respiratory No chest tightness 2016 Respiratory No cough 03/04/2017 Respiratory No dyspnea 03/04/2017 Respiratory No pedal edema 03/04/2017 Gastrointestinal No abdominal pain 2016 Gastrointestinal No constipation 2016 Gastrointestinal No diarrhea 03/04/2017 Gastrointestinal No gastroesophageal reflux 03/04/2017 Gastrointestinal No nausea 03/04/2017 Gastrointestinal No vomiting 03/04/2017 Genitourinary/Nephrology No dysuria 03/04 Genitourinary/Nephrology nocturia 2016 Genitourinary/Nephrology No urinary incontinence 03/04/2017 Musculoskeletal No stiffness 03/04/2017 Musculoskeletal No swelling 03/04/2017 Musculoskeletal No muscle weakness 2016 Musculoskeletal No myalgias 03/04/2017 Dermatologic No rash 03/04/2017 Dermatologic No sores 03/04/2017 Dermatologic No scar 03/04/2017 Neurologic No dizziness 03/04/2017 Neurologic No headache 03/04/2017 Neurologic No neck pain 03/04/2017 Neurologic No syncope 03/04/2017 Psychiatric No anxiety 03/04/2017 Psychiatric No depression 03/04/2017 Hematologic/Lymphatic anemia 03/04/2017 Constitutional No recent illness 2016 Constitutional No chills 11/07/2016 Constitutional No fatigue 11/07/2016 Constitutional No fever 11/07/2016 Constitutional No insomnia 11/07/2016 Constitutional No malaise 11/07/2016 Eyes No blindness 11/07/2016 Eyes No vision change 11/07/2016 Ears/Nose/Throat/Neck No dental pain Ears/Nose/Throat/Neck No dizziness 2016 Ears/Nose/Throat/Neck No dysphagia 2016 Ears/Nose/Throat/Neck No headache 2016 Ears/Nose/Throat/Neck No hearing loss Ears/Nose/Throat/Neck No nasal allergies 11/07/2016 Ears/Nose/Throat/Neck No sore throat Ears/Nose/Throat/Neck No postnasal drip 11/07/2016 Ears/Nose/Throat/Neck No sinus congestion 11/07/2016 Cardiovascular No chest pain/pressure Cardiovascular No dyspnea 11/07/2016 Cardiovascular No edema 11/07/2016 Cardiovascular No exercise intolerance Cardiovascular No fatigue 11/07/2016 Cardiovascular No near-syncope/dizziness 11/07/2016 Respiratory No chest tightness 2016 Respiratory No cough 11/07/2016 Respiratory No dyspnea 11/07/2016 Respiratory No pedal edema 11/07/2016 Gastrointestinal No abdominal pain 2016 Gastrointestinal No constipation 2016 Gastrointestinal No diarrhea 11/07/2016 Gastrointestinal No gastroesophageal reflux 11/07/2016 Gastrointestinal No nausea 11/07/2016 Gastrointestinal No vomiting 11/07/2016 Genitourinary/Nephrology No dysuria 11/07 Genitourinary/Nephrology nocturia 2016 Genitourinary/Nephrology No urinary incontinence 11/07/2016 Musculoskeletal No stiffness 11/07/2016 Musculoskeletal No swelling 11/07/2016 Musculoskeletal No muscle weakness 2016 Musculoskeletal No myalgias 11/07/2016 Dermatologic No rash 11/07/2016 Dermatologic No sores 11/07/2016 Dermatologic No scar 11/07/2016 Neurologic No dizziness 11/07/2016 Neurologic No headache 11/07/2016 Neurologic No neck pain 11/07/2016 Neurologic No syncope 11/07/2016 Psychiatric No anxiety 11/07/2016 Psychiatric No depression 11/07/2016 Hematologic/Lymphatic anemia 11/07/2016 Constitutional No recent illness 2016 Constitutional No chills 07/11/2016 Constitutional No fatigue 07/11/2016 Constitutional No fever 07/11/2016 Constitutional No insomnia 07/11/2016 Constitutional No malaise 07/11/2016 Eyes No blindness 07/11/2016 Eyes No vision change 07/11/2016 Ears/Nose/Throat/Neck No dental pain Ears/Nose/Throat/Neck No dizziness 2016 Ears/Nose/Throat/Neck No dysphagia 2016 Ears/Nose/Throat/Neck No headache 2016 Ears/Nose/Throat/Neck No hearing loss Ears/Nose/Throat/Neck No nasal allergies 07/11/2016 Ears/Nose/Throat/Neck No sore throat Ears/Nose/Throat/Neck No postnasal drip 07/11/2016 Ears/Nose/Throat/Neck No sinus congestion 07/11/2016 Cardiovascular No chest pain/pressure Cardiovascular No dyspnea 07/11/2016 Cardiovascular No edema 07/11/2016 Cardiovascular No exercise intolerance Cardiovascular No fatigue 07/11/2016 Cardiovascular No near-syncope/dizziness 07/11/2016 Respiratory No chest tightness 2016 Respiratory No cough 07/11/2016 Respiratory No dyspnea 07/11/2016 Respiratory No pedal edema 07/11/2016 Gastrointestinal No abdominal pain 2016 Gastrointestinal No constipation 2016 Gastrointestinal No diarrhea 07/11/2016 Gastrointestinal No gastroesophageal reflux 07/11/2016 Gastrointestinal No nausea 07/11/2016 Gastrointestinal No vomiting 07/11/2016 Genitourinary/Nephrology No dysuria 07/11 Genitourinary/Nephrology nocturia 2016 Genitourinary/Nephrology No urinary incontinence 07/11/2016 Musculoskeletal No stiffness 07/11/2016 Musculoskeletal No swelling 07/11/2016 Musculoskeletal No muscle weakness 2016 Musculoskeletal No myalgias 07/11/2016 Dermatologic No rash 07/11/2016 Dermatologic No sores 07/11/2016 Dermatologic No scar 07/11/2016 Neurologic No dizziness 07/11/2016 Neurologic No headache 07/11/2016 Neurologic No neck pain 07/11/2016 Neurologic No syncope 07/11/2016 Psychiatric No anxiety 07/11/2016 Psychiatric No depression 07/11/2016 Constitutional No recent illness 2015 Constitutional No chills 03/14/2016 Constitutional No fatigue 03/14/2016 Constitutional No fever 03/14/2016 Constitutional No insomnia 03/14/2016 Constitutional No malaise 03/14/2016 Eyes No blindness 03/14/2016 Eyes No vision change 03/14/2016 Ears/Nose/Throat/Neck No dental pain Ears/Nose/Throat/Neck No dizziness 2015 Ears/Nose/Throat/Neck No dysphagia 2015 Ears/Nose/Throat/Neck No headache 2015 Ears/Nose/Throat/Neck No hearing loss Ears/Nose/Throat/Neck No nasal allergies 03/14/2016 Ears/Nose/Throat/Neck No sore throat Ears/Nose/Throat/Neck No postnasal drip 03/14/2016 Ears/Nose/Throat/Neck No sinus congestion 03/14/2016 Cardiovascular No chest pain/pressure Cardiovascular No dyspnea 03/14/2016 Cardiovascular No edema 03/14/2016 Cardiovascular No exercise intolerance Cardiovascular No fatigue 03/14/2016 Cardiovascular No near-syncope/dizziness 03/14/2016 Respiratory No chest tightness 2015 Respiratory No cough 03/14/2016 Respiratory No dyspnea 03/14/2016 Respiratory No pedal edema 03/14/2016 Gastrointestinal No abdominal pain 2015 Gastrointestinal No constipation 2015 Gastrointestinal No diarrhea 03/14/2016 Gastrointestinal No gastroesophageal reflux 03/14/2016 Gastrointestinal No nausea 03/14/2016 Gastrointestinal No vomiting 03/14/2016 Genitourinary/Nephrology No dysuria 03/14 Genitourinary/Nephrology nocturia 2015 Genitourinary/Nephrology No urinary incontinence 03/14/2016 Musculoskeletal No stiffness 03/14/2016 Musculoskeletal No swelling 03/14/2016 Musculoskeletal No muscle weakness 2015 Musculoskeletal No myalgias 03/14/2016 Dermatologic No rash 03/14/2016 Dermatologic No sores 03/14/2016 Dermatologic No scar 03/14/2016 Neurologic No dizziness 03/14/2016 Neurologic No headache 03/14/2016 Neurologic No neck pain 03/14/2016 Neurologic No syncope 03/14/2016 Psychiatric No anxiety 03/14/2016 Psychiatric No depression 03/14/2016 Hematologic/Lymphatic anemia 03/14/2016 Physical Exam Exam Name System Name Item Name Status Result Effective Dates Notes Full Exam - General 1994 Constitutional general appearance Overall: well developed 02/12/2018 None Full Exam - General 1994 Constitutional general appearance Overall: in no acute distress 02/12/2018 None Full Exam - General 1994 Constitutional general appearance Overall: well nourished 02/12/2018 None Full Exam - General 1994 Eyes conjunctiva /eyelids Overall: conjunctiva clear 02/12/2018 None Full Exam - General 1994 Eyes conjunctiva /eyelids Overall: eyelids normal 02/12/2018 None Full Exam - General 1994 Ears/Nose/Throat lips/teeth/gingiva Overall: benign lips 02/12/2018 None Full Exam - General 1994 Respiratory respiratory effort/rhythm Overall: no retractions 02/12/2018 None Full Exam - General 1994 Respiratory respiratory effort/rhythm Overall: normal rate 02/12/2018 None Full Exam - General 1994 Musculoskeletal head and neck Overall: head atraumatic 02/12/2018 None Full Exam - General 1994 Neurologic cranial nerves Overall: crainial nerves 2 - 12 grossly intact 02/12/2018 None Full Exam - General 1994 Psychiatric orientation/consciousness Overall: oriented to person, place and time 02/12/2018 None Full Exam - General 1994 Psychiatric mood and affect Overall: normal mood and affect 02/12/2018 None Full Exam - General 1994 Psychiatric appearance Overall: well-groomed, good eye contact 02/12/2018 None Full Exam - General 1994 Constitutional general appearance Development: well developed 01/22/2018 None Full Exam - General 1994 Constitutional general appearance Development: appears stated age 0801/22/2018 None Full Exam - General 1994 Constitutional general appearance Hygiene/Attention to Grooming: good hygiene 01/22/2018 None Full Exam - General 1994 Eyes conjunctiva /eyelids Overall: conjunctiva clear 01/22/2018 None Full Exam - General 1994 Eyes conjunctiva /eyelids Overall: cornea clear 01/22/2018 None Full Exam - General 1994 Eyes conjunctiva /eyelids Overall: eyelids normal 01/22/2018 None Full Exam - General 1994 Eyes pupils and irises Overall: pupils equal, round, reactive to light and accomodation 01/22/2018 None Full Exam - General 1994 Ears/Nose/Throat otoscopic exam Overall: external auditory canals clear 01/22/2018 None Full Exam - General 1994 Ears/Nose/Throat otoscopic exam Overall: tympanic membranes clear 01/22/2018 None Full Exam - General 1994 Ears/Nose/Throat lips/teeth/gingiva Overall: benign lips 01/22/2018 None Full Exam - General 1994 Ears/Nose/Throat lips/teeth/gingiva Overall: normal dentition 01/22/2018 None Full Exam - General 1994 Ears/Nose/Throat oral cavity/pharynx/larynx Overall: oral mucosa clear 01/22/2018 None Full Exam - General 1994 Ears/Nose/Throat oral cavity/pharynx/larynx Overall: oropharyngeal mucosa clear 01/22/2018 None Full Exam - General 1994 Ears/Nose/Throat oral cavity/pharynx/larynx Overall: hypopharynx benign 01/22/2018 None Full Exam - General 1994 Ears/Nose/Throat oral cavity/pharynx/larynx Overall: no masses 01/22/2018 None Full Exam - General 1994 Respiratory auscultation Overall: breath sounds clear bilaterally 01/22/2018 None Full Exam - General 1994 Respiratory respiratory effort/rhythm Overall: no retractions 01/22/2018 None Full Exam - General 1994 Respiratory respiratory effort/rhythm Overall: normal rate 01/22/2018 None Full Exam - General 1994 Cardiovascular extremities Overall: no clubbing 01/22/2018 None Full Exam - General 1994 Cardiovascular auscultation of heart Overall: regular rate 01/22/2018 None Full Exam - General 1994 Cardiovascular auscultation of heart Overall: normal heart sounds 01/22/2018 None Full Exam - General 1994 Abdomen abdominal exam Overall: no tenderness 01/22/2018 None Full Exam - General 1994 Abdomen abdominal exam Overall: normal bowel sounds 01/22/2018 None Full Exam - General 1994 Lymphatic neck nodes Overall: anterior cervical chain benign 01/22/2018 None Full Exam - General 1994 Lymphatic neck nodes Overall: posterior cervical chain benign 01/22/2018 None Full Exam - General 1994 Musculoskeletal spine, ribs and pelvis Overall: spine benign 01/22/2018 None Full Exam - General 1994 Musculoskeletal spine, ribs and pelvis Overall: sacroiliac joint benign 01/22/2018 None Full Exam - General 1994 Musculoskeletal spine, ribs and pelvis Overall: good posture 01/22/2018 None Full Exam - General 1994 Musculoskeletal head and neck Overall: head atraumatic 01/22/2018 None Full Exam - General 1994 Musculoskeletal head and neck Overall: cervical spine benign 01/22/2018 None Full Exam - General 1994 Integument inspection of skin Overall: few scattered moles, no gross abnormalities 01/22/2018 None Full Exam - General 1994 Neurologic deep tendon reflexes Overall: deep tendon reflexes intact 01/22/2018 None Full Exam - General 1994 Neurologic cranial nerves Overall: crainial nerves 2 - 12 grossly intact 01/22/2018 None Full Exam - General 1994 Psychiatric orientation/consciousness Overall: oriented to person, place and time 01/22/2018 None Full Exam - General 1994 Psychiatric mood and affect Overall: normal mood and affect 01/22/2018 None Full Exam - General 1994 Ears/Nose/Throat otoscopic exam External auditory canal: complete cerumen impaction 01/22/2018 None Full Exam - General 1995 Ears/Nose/Throat otoscopic exam Tympanic membrane: tympanosclerosis 01/22/2018 visualized after cerumen removal Full Exam - General 1994 Constitutional general appearance Development: well developed 07/25/2017 None Full Exam - General 1994 Constitutional general appearance Development: appears stated age 0207/25/2017 None Full Exam - General 1994 Constitutional general appearance Hygiene/Attention to Grooming: good hygiene 07/25/2017 None Full Exam - General 1994 Eyes conjunctiva /eyelids Overall: conjunctiva clear 07/25/2017 None Full Exam - General 1994 Eyes conjunctiva /eyelids Overall: cornea clear 07/25/2017 None Full Exam - General 1994 Eyes conjunctiva /eyelids Overall: eyelids normal 07/25/2017 None Full Exam - General 1994 Eyes pupils and irises Overall: pupils equal, round, reactive to light and accomodation 07/25/2017 None Full Exam - General 1994 Ears/Nose/Throat otoscopic exam Overall: external auditory canals clear 07/25/2017 None Full Exam - General 1994 Ears/Nose/Throat otoscopic exam Overall: tympanic membranes clear 07/25/2017 None Full Exam - General 1994 Ears/Nose/Throat lips/teeth/gingiva Overall: benign lips 07/25/2017 None Full Exam - General 1994 Ears/Nose/Throat lips/teeth/gingiva Overall: normal dentition 07/25/2017 None Full Exam - General 1994 Ears/Nose/Throat oral cavity/pharynx/larynx Overall: oral mucosa clear 07/25/2017 None Full Exam - General 1994 Ears/Nose/Throat oral cavity/pharynx/larynx Overall: oropharyngeal mucosa clear 07/25/2017 None Full Exam - General 1994 Ears/Nose/Throat oral cavity/pharynx/larynx Overall: hypopharynx benign 07/25/2017 None Full Exam - General 1994 Ears/Nose/Throat oral cavity/pharynx/larynx Overall: no masses 07/25/2017 None Full Exam - General 1994 Respiratory auscultation Overall: breath sounds clear bilaterally 07/25/2017 None Full Exam - General 1994 Respiratory respiratory effort/rhythm Overall: no retractions 07/25/2017 None Full Exam - General 1994 Respiratory respiratory effort/rhythm Overall: normal rate 07/25/2017 None Full Exam - General 1994 Cardiovascular extremities Overall: no clubbing 07/25/2017 None Full Exam - General 1994 Cardiovascular auscultation of heart Overall: regular rate 07/25/2017 None Full Exam - General 1994 Cardiovascular auscultation of heart Overall: normal heart sounds 07/25/2017 None Full Exam - General 1994 Abdomen abdominal exam Overall: no tenderness 07/25/2017 None Full Exam - General 1994 Abdomen abdominal exam Overall: normal bowel sounds 07/25/2017 None Full Exam - General 1994 Lymphatic neck nodes Overall: anterior cervical chain benign 07/25/2017 None Full Exam - General 1994 Lymphatic neck nodes Overall: posterior cervical chain benign 07/25/2017 None Full Exam - General 1994 Musculoskeletal spine, ribs and pelvis Overall: spine benign 07/25/2017 None Full Exam - General 1994 Musculoskeletal spine, ribs and pelvis Overall: sacroiliac joint benign 07/25/2017 None Full Exam - General 1994 Musculoskeletal spine, ribs and pelvis Overall: good posture 07/25/2017 None Full Exam - General 1994 Musculoskeletal head and neck Overall: head atraumatic 07/25/2017 None Full Exam - General 1994 Musculoskeletal head and neck Overall: cervical spine benign 07/25/2017 None Full Exam - General 1994 Integument inspection of skin Overall: few scattered moles, no gross abnormalities 07/25/2017 None Full Exam - General 1994 Neurologic deep tendon reflexes Overall: deep tendon reflexes intact 07/25/2017 None Full Exam - General 1994 Neurologic cranial nerves Overall: crainial nerves 2 - 12 grossly intact 07/25/2017 None Full Exam - General 1994 Psychiatric orientation/consciousness Overall: oriented to person, place and time 07/25/2017 None Full Exam - General 1994 Psychiatric mood and affect Overall: normal mood and affect 07/25/2017 None Full Exam - General 1994 Constitutional general appearance Development: well developed 03/04/2017 None Full Exam - General 1994 Constitutional general appearance Development: appears stated age 0903/04/2017 None Full Exam - General 1994 Constitutional general appearance Hygiene/Attention to Grooming: good hygiene 03/04/2017 None Full Exam - General 1994 Eyes conjunctiva /eyelids Overall: conjunctiva clear 03/04/2017 None Full Exam - General 1994 Eyes conjunctiva /eyelids Overall: cornea clear 03/04/2017 None Full Exam - General 1994 Eyes conjunctiva /eyelids Overall: eyelids normal 03/04/2017 None Full Exam - General 1994 Eyes pupils and irises Overall: pupils equal, round, reactive to light and accomodation 03/04/2017 None Full Exam - General 1994 Ears/Nose/Throat otoscopic exam Overall: external auditory canals clear 03/04/2017 None Full Exam - General 1995 Ears/Nose/Throat otoscopic exam Overall: tympanic membranes clear 03/04/2017 None Full Exam - General 1994 Ears/Nose/Throat lips/teeth/gingiva Overall: benign lips 03/04/2017 None Full Exam - General 1994 Ears/Nose/Throat lips/teeth/gingiva Overall: normal dentition 03/04/2017 None Full Exam - General 1994 Ears/Nose/Throat oral cavity/pharynx/larynx Overall: oral mucosa clear 03/04/2017 None Full Exam - General 1994 Ears/Nose/Throat oral cavity/pharynx/larynx Overall: oropharyngeal mucosa clear 03/04/2017 None Full Exam - General 1994 Ears/Nose/Throat oral cavity/pharynx/larynx Overall: hypopharynx benign 03/04/2017 None Full Exam - General 1994 Ears/Nose/Throat oral cavity/pharynx/larynx Overall: no masses 03/04/2017 None Full Exam - General 1994 Respiratory auscultation Overall: breath sounds clear bilaterally 03/04/2017 None Full Exam - General 1994 Respiratory respiratory effort/rhythm Overall: no retractions 03/04/2017 None Full Exam - General 1994 Respiratory respiratory effort/rhythm Overall: normal rate 03/04/2017 None Full Exam - General 1994 Cardiovascular extremities Overall: no clubbing 03/04/2017 None Full Exam - General 1994 Cardiovascular auscultation of heart Overall: regular rate 03/04/2017 None Full Exam - General 1994 Cardiovascular auscultation of heart Overall: normal heart sounds 03/04/2017 None Full Exam - General 1994 Abdomen abdominal exam Overall: no tenderness 03/04/2017 None Full Exam - General 1994 Abdomen abdominal exam Overall: normal bowel sounds 03/04/2017 None Full Exam - General 1994 Lymphatic neck nodes Overall: anterior cervical chain benign 03/04/2017 None Full Exam - General 1994 Lymphatic neck nodes Overall: posterior cervical chain benign 03/04/2017 None Full Exam - General 1994 Musculoskeletal spine, ribs and pelvis Overall: spine benign 03/04/2017 None Full Exam - General 1994 Musculoskeletal spine, ribs and pelvis Overall: sacroiliac joint benign 03/04/2017 None Full Exam - General 1994 Musculoskeletal spine, ribs and pelvis Overall: good posture 03/04/2017 None Full Exam - General 1994 Musculoskeletal head and neck Overall: head atraumatic 03/04/2017 None Full Exam - General 1994 Musculoskeletal head and neck Overall: cervical spine benign 03/04/2017 None Full Exam - General 1994 Integument inspection of skin Overall: few scattered moles, no gross abnormalities 03/04/2017 None Full Exam - General 1994 Neurologic deep tendon reflexes Overall: deep tendon reflexes intact 03/04/2017 None Full Exam - General 1994 Neurologic cranial nerves Overall: crainial nerves 2 - 12 grossly intact 03/04/2017 None Full Exam - General 1994 Psychiatric orientation/consciousness Overall: oriented to person, place and time 03/04/2017 None Full Exam - General 1994 Psychiatric mood and affect Overall: normal mood and affect 03/04/2017 None Full Exam - General 1994 Constitutional general appearance Development: well developed 11/07/2016 None Full Exam - General 1994 Constitutional general appearance Development: appears stated age 0511/07/2016 None Full Exam - General 1994 Constitutional general appearance Hygiene/Attention to Grooming: good hygiene 11/07/2016 None Full Exam - General 1994 Eyes conjunctiva /eyelids Overall: conjunctiva clear 11/07/2016 None Full Exam - General 1994 Eyes conjunctiva /eyelids Overall: cornea clear 11/07/2016 None Full Exam - General 1994 Eyes conjunctiva /eyelids Overall: eyelids normal 11/07/2016 None Full Exam - General 1994 Eyes pupils and irises Overall: pupils equal, round, reactive to light and accomodation 11/07/2016 None Full Exam - General 1994 Ears/Nose/Throat otoscopic exam Overall: external auditory canals clear 11/07/2016 None Full Exam - General 1994 Ears/Nose/Throat otoscopic exam Overall: tympanic membranes clear 11/07/2016 None Full Exam - General 1994 Ears/Nose/Throat lips/teeth/gingiva Overall: benign lips 11/07/2016 None Full Exam - General 1994 Ears/Nose/Throat lips/teeth/gingiva Overall: normal dentition 11/07/2016 None Full Exam - General 1994 Ears/Nose/Throat oral cavity/pharynx/larynx Overall: oral mucosa clear 11/07/2016 None Full Exam - General 1994 Ears/Nose/Throat oral cavity/pharynx/larynx Overall: oropharyngeal mucosa clear 11/07/2016 None Full Exam - General 1994 Ears/Nose/Throat oral cavity/pharynx/larynx Overall: hypopharynx benign 11/07/2016 None Full Exam - General 1994 Ears/Nose/Throat oral cavity/pharynx/larynx Overall: no masses 11/07/2016 None Full Exam - General 1994 Respiratory auscultation Overall: breath sounds clear bilaterally 11/07/2016 None Full Exam - General 1994 Respiratory respiratory effort/rhythm Overall: no retractions 11/07/2016 None Full Exam - General 1994 Respiratory respiratory effort/rhythm Overall: normal rate 11/07/2016 None Full Exam - General 1994 Cardiovascular extremities Overall: no clubbing 11/07/2016 None Full Exam - General 1994 Cardiovascular auscultation of heart Overall: regular rate 11/07/2016 None Full Exam - General 1994 Cardiovascular auscultation of heart Overall: normal heart sounds 11/07/2016 None Full Exam - General 1994 Abdomen abdominal exam Overall: no tenderness 11/07/2016 None Full Exam - General 1994 Abdomen abdominal exam Overall: normal bowel sounds 11/07/2016 None Full Exam - General 1994 Lymphatic neck nodes Overall: anterior cervical chain benign 11/07/2016 None Full Exam - General 1994 Lymphatic neck nodes Overall: posterior cervical chain benign 11/07/2016 None Full Exam - General 1994 Musculoskeletal spine, ribs and pelvis Overall: spine benign 11/07/2016 None Full Exam - General 1994 Musculoskeletal spine, ribs and pelvis Overall: sacroiliac joint benign 11/07/2016 None Full Exam - General 1994 Musculoskeletal spine, ribs and pelvis Overall: good posture 11/07/2016 None Full Exam - General 1994 Musculoskeletal head and neck Overall: head atraumatic 11/07/2016 None Full Exam - General 1994 Musculoskeletal head and neck Overall: cervical spine benign 11/07/2016 None Full Exam - General 1994 Integument inspection of skin Overall: few scattered moles, no gross abnormalities 11/07/2016 None Full Exam - General 1994 Neurologic deep tendon reflexes Overall: deep tendon reflexes intact 11/07/2016 None Full Exam - General 1994 Neurologic cranial nerves Overall: crainial nerves 2 - 12 grossly intact 11/07/2016 None Full Exam - General 1994 Psychiatric orientation/consciousness Overall: oriented to person, place and time 11/07/2016 None Full Exam - General 1994 Psychiatric mood and affect Overall: normal mood and affect 11/07/2016 None Full Exam - General 1994 Constitutional general appearance Development: well developed 07/11/2016 None Full Exam - General 1994 Constitutional general appearance Development: appears stated age 0107/11/2016 None Full Exam - General 1994 Constitutional general appearance Hygiene/Attention to Grooming: good hygiene 07/11/2016 None Full Exam - General 1994 Eyes conjunctiva /eyelids Overall: conjunctiva clear 07/11/2016 None Full Exam - General 1994 Eyes conjunctiva /eyelids Overall: cornea clear 07/11/2016 None Full Exam - General 1994 Eyes conjunctiva /eyelids Overall: eyelids normal 07/11/2016 None Full Exam - General 1994 Eyes pupils and irises Overall: pupils equal, round, reactive to light and accomodation 07/11/2016 None Full Exam - General 1994 Ears/Nose/Throat otoscopic exam Overall: external auditory canals clear 07/11/2016 None Full Exam - General 1994 Ears/Nose/Throat otoscopic exam Overall: tympanic membranes clear 07/11/2016 None Full Exam - General 1994 Ears/Nose/Throat lips/teeth/gingiva Overall: benign lips 07/11/2016 None Full Exam - General 1994 Ears/Nose/Throat lips/teeth/gingiva Overall: normal dentition 07/11/2016 None Full Exam - General 1994 Ears/Nose/Throat oral cavity/pharynx/larynx Overall: oral mucosa clear 07/11/2016 None Full Exam - General 1994 Ears/Nose/Throat oral cavity/pharynx/larynx Overall: oropharyngeal mucosa clear 07/11/2016 None Full Exam - General 1994 Ears/Nose/Throat oral cavity/pharynx/larynx Overall: hypopharynx benign 07/11/2016 None Full Exam - General 1994 Ears/Nose/Throat oral cavity/pharynx/larynx Overall: no masses 07/11/2016 None Full Exam - General 1994 Respiratory auscultation Overall: breath sounds clear bilaterally 07/11/2016 None Full Exam - General 1994 Respiratory respiratory effort/rhythm Overall: no retractions 07/11/2016 None Full Exam - General 1994 Respiratory respiratory effort/rhythm Overall: normal rate 07/11/2016 None Full Exam - General 1994 Cardiovascular extremities Overall: no clubbing 07/11/2016 None Full Exam - General 1994 Cardiovascular auscultation of heart Overall: regular rate 07/11/2016 None Full Exam - General 1994 Cardiovascular auscultation of heart Overall: normal heart sounds 07/11/2016 None Full Exam - General 1994 Abdomen abdominal exam Overall: no tenderness 07/11/2016 None Full Exam - General 1994 Abdomen abdominal exam Overall: normal bowel sounds 07/11/2016 None Full Exam - General 1994 Lymphatic neck nodes Overall: anterior cervical chain benign 07/11/2016 None Full Exam - General 1994 Lymphatic neck nodes Overall: posterior cervical chain benign 07/11/2016 None Full Exam - General 1994 Musculoskeletal spine, ribs and pelvis Overall: spine benign 07/11/2016 None Full Exam - General 1994 Musculoskeletal spine, ribs and pelvis Overall: sacroiliac joint benign 07/11/2016 None Full Exam - General 1994 Musculoskeletal spine, ribs and pelvis Overall: good posture 07/11/2016 None Full Exam - General 1994 Musculoskeletal head and neck Overall: head atraumatic 07/11/2016 None Full Exam - General 1994 Musculoskeletal head and neck Overall: cervical spine benign 07/11/2016 None Full Exam - General 1994 Integument inspection of skin Overall: few scattered moles, no gross abnormalities 07/11/2016 None Full Exam - General 1994 Neurologic deep tendon reflexes Overall: deep tendon reflexes intact 07/11/2016 None Full Exam - General 1994 Neurologic cranial nerves Overall: crainial nerves 2 - 12 grossly intact 07/11/2016 None Full Exam - General 1994 Psychiatric orientation/consciousness Overall: oriented to person, place and time 07/11/2016 None Full Exam - General 1994 Psychiatric mood and affect Overall: normal mood and affect 07/11/2016 None Full Exam - General 1994 Constitutional general appearance Development: well developed 03/14/2016 None Full Exam - General 1994 Constitutional general appearance Development: appears stated age 0903/14/2016 None Full Exam - General 1994 Constitutional general appearance Hygiene/Attention to Grooming: good hygiene 03/14/2016 None Full Exam - General 1994 Eyes conjunctiva /eyelids Overall: conjunctiva clear 03/14/2016 None Full Exam - General 1994 Eyes conjunctiva /eyelids Overall: cornea clear 03/14/2016 None Full Exam - General 1994 Eyes conjunctiva /eyelids Overall: eyelids normal 03/14/2016 None Full Exam - General 1994 Eyes pupils and irises Overall: pupils equal, round, reactive to light and accomodation 03/14/2016 None Full Exam - General 1994 Ears/Nose/Throat otoscopic exam Overall: external auditory canals clear 03/14/2016 None Full Exam - General 1994 Ears/Nose/Throat otoscopic exam Overall: tympanic membranes clear 03/14/2016 None Full Exam - General 1994 Ears/Nose/Throat lips/teeth/gingiva Overall: benign lips 03/14/2016 None Full Exam - General 1994 Ears/Nose/Throat lips/teeth/gingiva Overall: normal dentition 03/14/2016 None Full Exam - General 1994 Ears/Nose/Throat oral cavity/pharynx/larynx Overall: oral mucosa clear 03/14/2016 None Full Exam - General 1994 Ears/Nose/Throat oral cavity/pharynx/larynx Overall: oropharyngeal mucosa clear 03/14/2016 None Full Exam - General 1994 Ears/Nose/Throat oral cavity/pharynx/larynx Overall: hypopharynx benign 03/14/2016 None Full Exam - General 1994 Ears/Nose/Throat oral cavity/pharynx/larynx Overall: no masses 03/14/2016 None Full Exam - General 1994 Respiratory auscultation Overall: breath sounds clear bilaterally 03/14/2016 None Full Exam - General 1994 Respiratory respiratory effort/rhythm Overall: no retractions 03/14/2016 None Full Exam - General 1994 Respiratory respiratory effort/rhythm Overall: normal rate 03/14/2016 None Full Exam - General 1994 Cardiovascular extremities Overall: no clubbing 03/14/2016 None Full Exam - General 1994 Cardiovascular auscultation of heart Overall: regular rate 03/14/2016 None Full Exam - General 1994 Cardiovascular auscultation of heart Overall: normal heart sounds 03/14/2016 None Full Exam - General 1994 Abdomen abdominal exam Overall: no tenderness 03/14/2016 None Full Exam - General 1994 Abdomen abdominal exam Overall: normal bowel sounds 03/14/2016 None Full Exam - General 1994 Lymphatic neck nodes Overall: anterior cervical chain benign 03/14/2016 None Full Exam - General 1994 Lymphatic neck nodes Overall: posterior cervical chain benign 03/14/2016 None Full Exam - General 1994 Musculoskeletal spine, ribs and pelvis Overall: spine benign 03/14/2016 None Full Exam - General 1994 Musculoskeletal spine, ribs and pelvis Overall: sacroiliac joint benign 03/14/2016 None Full Exam - General 1994 Musculoskeletal spine, ribs and pelvis Overall: good posture 03/14/2016 None Full Exam - General 1994 Musculoskeletal head and neck Overall: head atraumatic 03/14/2016 None Full Exam - General 1994 Musculoskeletal head and neck Overall: cervical spine benign 03/14/2016 None Full Exam - General 1994 Integument inspection of skin Overall: few scattered moles, no gross abnormalities 03/14/2016 None Full Exam - General 1994 Neurologic deep tendon reflexes Overall: deep tendon reflexes intact 03/14/2016 None Full Exam - General 1994 Neurologic cranial nerves Overall: crainial nerves 2 - 12 grossly intact 03/14/2016 None Full Exam - General 1994 Psychiatric orientation/consciousness Overall: oriented to person, place and time 03/14/2016 None Full Exam - General 1994 Psychiatric mood and affect Overall: normal mood and affect 03/14/2016 None Procedures Procedure Codes Date PPPS, SUBSEQ VISIT CPT -4: G0439 02/12/2018 REMOVAL OF IMPACTED WAX CPT-4: G0268 01/22/2018 ADMIN INFLUENZA VIRUS VAC CPT-4: G0008 03/14/2016 FLU VACC PRSV FREE INC ANTIG Formatting Model/CDA Sections, Assigned to/Dennise Goyal CPT-4: [id number] 03/14/2016 Vital Signs Date Vital 02/12/2018 Blood Pressure 1: 140/68 Code : 8480-6 BMI: 29.1 Code : 17502-6 Heart Rate 1 : 66 bpm Height: 5'7" Waist Measure (cm): 107 cm Weight: 186 lbs 01/22/2018 Blood Pressure 1: 122/66 Code : 8480-6 BMI: 28.8 Code : 37760-4 Heart Rate 1 : 56 bpm Height: 5'7" SpO2: 98% Weight: 184 lbs 07/25/2017 Blood Pressure 1: 126/62 Code : 8480-6 BMI: 28.7 Code : 28297-3 Heart Rate 1 : 66 bpm Height: 5'7" SpO2: 98% Weight: 183 lbs 03/04/2017 Blood Pressure 1: 110/56 Code : 8480-6 BMI: 27.7 Code : 38063-3 Heart Rate 1 : 56 bpm Height: 5'7" SpO2: 97% Weight: 177 lbs 11/07/2016 Blood Pressure 1: 128/66 Code : 8480-6 BMI: 27.9 Code : 80154-9 Heart Rate 1 : 65 bpm Height: 5'7" SpO2: 99% Weight: 178 lbs 07/11/2016 Blood Pressure 1: 118/56 Code : 8480-6 BMI: 28.5 Code : 83972-7 Heart Rate 1 : 57 bpm Height: 5'7" SpO2: 97% Weight: 182 lbs 03/14/2016 Blood Pressure 1: 118/60 Code : 8480-6 BMI: 27.1 Code : 50869-5 Heart Rate 1 : 70 bpm Height: 5'7" SpO2: 93% Weight: 173 lbs Functional Status No Functional Status data History of Present Illness Symptom Name Status Result Effective Date Notes Annual Medicare Wellness Exam Alcohol Use does not drink any alcohol 02/12/2018 None Annual Medicare Wellness Exam Aspirin Use no 02/12/2018 None Annual Medicare Wellness Exam Blood Glucose (self reported) don't know 02/12/2018 None Annual Medicare Wellness Exam Blood Pressure (self reported ) don't know 02/12/2018 None Annual Medicare Wellness Exam Cholesterol (self reported) don't know 02/12/2018 None Annual Medicare Wellness Exam Depression (last 6 months) almost never 02/12/2018 None Annual Medicare Wellness Exam Depression or Hopelessness almost never 02/12/2018 None Annual Medicare Wellness Exam Describe Your Health good 02/12/2018 None Annual Medicare Wellness Exam Exercise Habits does not exercise 02/12/2018 None Annual Medicare Wellness Exam Handling Stress usually frank effectively 02/12/2018 None Annual Medicare Wellness Exam Hemaglobin A-1C (self reported ) don't know 02/12/2018 None Annual Medicare Wellness Exam Hours of Sleep 7 02/12/2018 None Annual Medicare Wellness Exam Interaction with Friends yes 02/12/2018 None Annual Medicare Wellness Exam Interests & Pleasure almost all of the time 02/12/2018 None Annual Medicare Wellness Exam Life Satisfaction very satisfied 02/12/2018 None Annual Medicare Wellness Exam Motor Vehicle Safety always fastens seat belt: y 02/12/2018 None Annual Medicare Wellness Exam Motor Vehicle Safety drives after drinking: n 02/12/2018 None Annual Medicare Wellness Exam Motor Vehicle Safety rides with someone who has been drinking: n 2017 None Annual Medicare Wellness Exam Nutrition servings of fried food / high fat foods per day: 1 2017 None Annual Medicare Wellness Exam Nutrition servings of high fiber / whole grain per day: 2 02/12/2018 None Annual Medicare Wellness Exam Nutrition servings of vegetables / fruit per day: 2 02/12/2018 None Annual Medicare Wellness Exam Smoking and Tobacco Use non smoker 02/12/2018 None Annual Medicare Wellness Exam Social & Emotional Support always 02/12/2018 None Annual Medicare Wellness Exam Stress almost never 02/12/2018 None Annual Medicare Wellness Exam Sun Exposure protects skin when outdoors: n 02/12/2018 None hypertension Quality primary hypertension 01/22/2018 None hypertension Quality stable 01/22/2018 None hypertension Onset and Resolution ongoing 01/22/2018 None hypertension Onset of Symptom during adulthood 01/22/2018 None hypertension Blood Pressure Values not checking blood pressure at home 01/22/2018 None hypertension Alleviating Factors medication 01/22/2018 None hypertension Pertinent Findings Denies dizziness 01/22/2018 None hypertension Pertinent Findings Denies dyspnea 01/22/2018 None hyperlipidemia Onset and Resolution gradual in onset 01/22/2018 None hyperlipidemia Onset of Symptom during adulthood 01/22/2018 None hyperlipidemia Alleviating Factors medication 01/22/2018 None hyperlipidemia Exacerbating Factors diet 01/22/2018 None hypertension Quality chronic 01/22/2018 None hyperlipidemia Significant Medications statin 01/22/2018 None hypertension Pertinent Findings Denies edema 01/22/2018 None hypertension Quality primary hypertension 07/25/2017 None hypertension Quality stable 07/25/2017 None hypertension Onset and Resolution ongoing 07/25/2017 None hypertension Onset of Symptom during adulthood 07/25/2017 None hypertension Blood Pressure Values not checking blood pressure at home 07/25/2017 None hypertension Alleviating Factors medication 07/25/2017 None hypertension Pertinent Findings dizziness 07/25/2017 occasionally hypertension Pertinent Findings Denies dyspnea 07/25/2017 None hyperlipidemia Onset and Resolution gradual in onset 07/25/2017 None hyperlipidemia Onset of Symptom during adulthood 07/25/2017 None hyperlipidemia Alleviating Factors medication 07/25/2017 None hyperlipidemia Exacerbating Factors diet 07/25/2017 None hypertension Quality primary hypertension 03/04/2017 None hypertension Quality stable 03/04/2017 None hypertension Onset and Resolution ongoing 03/04/2017 None hypertension Onset of Symptom during adulthood 03/04/2017 None hypertension Blood Pressure Values not checking blood pressure at home 03/04/2017 None hypertension Alleviating Factors medication 03/04/2017 None hypertension Pertinent Findings dizziness 03/04/2017 occasionally hyperlipidemia Onset and Resolution gradual in onset 03/04/2017 None hyperlipidemia Onset of Symptom during adulthood 03/04/2017 None hyperlipidemia Alleviating Factors medication 03/04/2017 None hyperlipidemia Exacerbating Factors diet 03/04/2017 None hypertension Pertinent Findings Denies dyspnea 03/04/2017 None hypertension Onset and Resolution ongoing 11/07/2016 None hypertension Onset of Symptom during adulthood 11/07/2016 None hypertension Blood Pressure Values not checking blood pressure at home 11/07/2016 None hypertension Alleviating Factors medication 11/07/2016 None hypertension Pertinent Findings Denies dizziness 11/07/2016 None hyperlipidemia Onset and Resolution gradual in onset 11/07/2016 None hyperlipidemia Onset and Resolution ongoing 11/07/2016 None hyperlipidemia Onset of Symptom during adulthood 11/07/2016 None hyperlipidemia Alleviating Factors medication 11/07/2016 None hyperlipidemia Exacerbating Factors diet 11/07/2016 None hypertension Quality primary hypertension 11/07/2016 None hypertension Quality stable 11/07/2016 None hypertension Onset and Resolution ongoing 07/11/2016 None hypertension Onset of Symptom during adulthood 07/11/2016 None hypertension Blood Pressure Values not checking blood pressure at home 07/11/2016 None hypertension Alleviating Factors medication 07/11/2016 None hypertension Pertinent Findings dizziness 07/11/2016 occasionally hypertension Pertinent Findings Denies dyspnea 07/11/2016 None hypertension Pertinent Findings Denies edema 07/11/2016 None hyperlipidemia Onset and Resolution gradual in onset 07/11/2016 None hyperlipidemia Onset and Resolution ongoing 07/11/2016 None hyperlipidemia Onset of Symptom during adulthood 07/11/2016 None hyperlipidemia Alleviating Factors medication 07/11/2016 None hyperlipidemia Exacerbating Factors diet 07/11/2016 None arthritis Location knees 07/11/2016 -right knee and his back arthritis Onset and Resolution gradual in onset 07/11/2016 None arthritis Onset and Resolution ongoing 07/11/2016 None arthritis Onset of Symptom 2 years ago 07/11/2016 None arthritis Quality chronic 07/11/2016 None hypertension Onset and Resolution ongoing 03/14/2016 None hypertension Onset of Symptom during adulthood 03/14/2016 None hypertension Blood Pressure Values not checking blood pressure at home 03/14/2016 None hypertension Alleviating Factors medication 03/14/2016 None hypertension Pertinent Findings Denies edema 03/14/2016 None hypertension Pertinent Findings Denies dyspnea 03/14/2016 None hypertension Pertinent Findings dizziness 03/14/2016 occasionally hyperlipidemia Onset and Resolution gradual in onset 03/14/2016 None hyperlipidemia Onset and Resolution ongoing 03/14/2016 None hyperlipidemia Onset of Symptom during adulthood 03/14/2016 None hyperlipidemia Alleviating Factors medication 03/14/2016 None hyperlipidemia Exacerbating Factors diet 03/14/2016 None arthritis Onset and Resolution ongoing 03/14/2016 None arthritis Onset and Resolution gradual in onset 03/14/2016 None arthritis Onset of Symptom 2 years ago 03/14/2016 None arthritis Location knees 03/14/2016 -right knee and his back arthritis Quality chronic 03/14/2016 None Advance Directives No Advance Directive data Encounters Encounter Performer Location Codes Date ([id number]) [id number] EST. 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 PATIENT, LEVEL IV Diagnosis: Essential (primary) hypertension[ICD10: I10] Diagnosis: Mixed hyperlipidemia[ICD10: E78.2] Diagnosis: Other iron deficiency anemias[ICD10: D50.8] Jessica Johnson MD, [facility] CPT-4: 47347 07/25/2017 [id number]) 42990 EST. PATIENT, LEVEL III Diagnosis: Mixed hyperlipidemia[ICD10: E78.2] Diagnosis: Essential (primary) hypertension[ICD10: I10] Diagnosis: Other iron deficiency anemias[ICD10: D50.8] Jessica Johnson MD, [facility] CPT-4: 92512 03/04/2017 [id number]) 05396 EST. PATIENT, LEVEL IV Diagnosis: Essential (primary) hypertension[ICD10: I10] Diagnosis: Mixed hyperlipidemia[ICD10: E78.2] Diagnosis: Other iron deficiency anemias[ICD10: D50.8] Jessica Johnson MD, [facility] CPT-4: 98426 11/07/2016 [id number]) 96374 EST. PATIENT, LEVEL IV Diagnosis: Essential (primary) hypertension[ICD10: I10] Diagnosis: Benign prostatic hyperplasia with lower urinary tract symptoms[ICD10 : N40.1] Jessica Johnson MD, [facility] CPT-4: 23392 2016 ([id number]) OFFICE VISIT, NEW - LEVEL 4 Diagnosis: Essential (primary) hypertension[ICD10: I10] Diagnosis: Mixed hyperlipidemia[ICD10: E78.2] Diagnosis: Encounter for immunization[ICD10: Z23] [facility] CPT-4: 97458 03/14/2016 Plan of Care Planned Activity Notes Codes Status Date Visit Plan: Medicare Exam - today we discussed the patients past history, immunizations, preventative exams/evaluations - colonoscopy, fecal occult blood testing, routine labs for renal function, glucose, cholesterol, osteoporosis evaluations, cardiovascular testing and cancer screenings. We have also discussed mental health and the signs/symptoms of depression. The patient was advised of home safety evaluations and the need to make sure that as the aging process continues, we need to be aware of different ways to make the home a safer place to reside. The patient has also been counseled that exercise is necessary - and of utmost importance as we age to help decrease fall risk and to maintain independece in the home. Today we discussed the need for the patient to create paperwork for Advanced directives as well as for the patient to provide this office with a copy of her [employer] paperwork for health care surrogate. 02/12/2018 Appointment[facility] [phone] [id number] [facility] - Annual Wellness Visit 02/12/2018 Patient Education: Patient Medication Summary Completed 02/12/2018 Visit Plan: Hypertension - well controlled - continue with current medications, continue with no added salt diet. Pt has been encouraged to exercise daily. The pt has been advised to call the office if there are any acute concerns about change in blood pressure readings at home. Hyperlipidemia - pt has been counseled about appropriate diet, exercise, and need for low fat food choices. I have discussed the need for the patient to take medications as prescribed. If the patient has negative side effects from the medication, they are to CALL the office and not abruptly discontinue the medication without discussion with a practitioner in the office. We will check labs in 3-6 months for follow up on the patient's chronic medical problem and to assure normal liver response to medications. Anemia - continue with oral iron. Low back pain- the patient was instructed in appropriate posture, we discussed physical therapy - he is not interested at this time. The pt is to use prn antiinflammatories to manage acute pain. The patient is to call the office if the pain is worsening or does not improve. Cerumen Impaction - The impacted cerumen was removed with the use of the ear currette. The patient tolerated the procedure without incident and had improvement in hearing. The wax was removed by the practitioner due to the wax being more complicated to remove, and staff was needed to assist the removal of the wax by holding the ear, and keeping patient stabilized during the removal process. 01/22/2018 Visit Plan: Hypertension - well controlled - continue with current medications, continue with no added salt diet. Pt has been encouraged to exercise daily. The pt has been advised to call the office if there are any acute concerns about change in blood pressure readings at home. Hyperlipidemia - pt has been counseled about appropriate diet, exercise, and need for low fat food choices. I have discussed the need for the patient to take medications as prescribed. If the patient has negative side effects from the medication, they are to CALL the office and not abruptly discontinue the medication without discussion with a practitioner in the office. We will check labs in 3-6 months for follow up on the patient's chronic medical problem and to assure normal liver response to medications. Anemia - continue with oral iron. Low back pain- the patient was instructed in appropriate posture, need for weight loss to alleviate abdominal obesity that is worsening the patient's back pain.. The pt is to use prn antiinflammatories to manage acute pain. The patient is to call the office if the pain is worsening or does not improve. 01/22/2018 Appointment: Jessica Johnson WPtel: [address] [place], [place] [id number] (30 min) [facility] 01/22/2018 Patient Education: Patient Medication Summary Completed 01/22/2018 Visit Plan: Hypertension - well controlled - continue with current medications, continue with no added salt diet. Pt has been encouraged to exercise daily. The pt has been advised to call the office if there are any acute concerns about change in blood pressure readings at home. Hyperlipidemia - pt has been counseled about appropriate diet, exercise, and need for low fat food choices. I have discussed the need for the patient to take medications as prescribed. If the patient has negative side effects from the medication, they are to CALL the office and not abruptly discontinue the medication without discussion with a practitioner in the office. We will check labs in 3-6 months for follow up on the patient's chronic medical problem and to assure normal liver response to medications. Anemia - continue with oral iron. 07/25/2017 Appointment: Jessica Johnson WPtel: [phone] [facility] (15 min) Moderate 07/25/2017 Patient Education: Patient Medication Summary Completed 07/25/2017 Appointment: Jessica Johnson WPtel: [phone] [facility] (15 min) Moderate 07/09/2017 Visit Plan: Hypertension - well controlled - continue with current medications, continue with no added salt diet. Pt has been encouraged to exercise daily. The pt has been advised to call the office if there are any acute concerns about change in blood pressure readings at home. Hyperlipidemia - pt has been counseled about appropriate diet, exercise, and need for low fat food choices. I have discussed the need for the patient to take medications as prescribed. If the patient has negative side effects from the medication, they are to CALL the office and not abruptly discontinue the medication without discussion with a practitioner in the office. We will check labs in 3-6 months for follow up on the patient's chronic medical problem and to assure normal liver response to medications. Anemia - continue with oral iron. 03/04/2017 Appointment: Alex Jessica WPtel: [phone] [facility] (15 min) Moderate 03/04/2017 Patient Education: Patient Medication Summary Completed 03/04/2017 Visit Plan: Hypertension - well controlled - continue with current medications, continue with no added salt diet. Pt has been encouraged to exercise daily. The pt has been advised to call the office if there are any acute concerns about change in blood pressure readings at home. Hyperlipidemia - pt has been counseled about appropriate diet, exercise, and need for low fat food choices. I have discussed the need for the patient to take medications as prescribed. If the patient has negative side effects from the medication, they are to CALL the office and not abruptly discontinue the medication without discussion with a practitioner in the office. We will check labs in 3-6 months for follow up on the patient's chronic medical problem and to assure normal liver response to medications. Anemia - check labs - pt given rx for labs - pt to have them done after the patient is seen by oncologist/guard immigration. 11/07/2016 Appointment: Alex Jessica WPtel: [phone] [facility] (15 min) Moderate 11/07/2016 Patient Education: Patient Medication Summary Completed 11/07/2016 Visit Plan: Hypertension - well controlled - continue with current medications, continue with no added salt diet. Pt has been encouraged to exercise daily. The pt has been advised to call the office if there are any acute concerns about change in blood pressure readings at home. Urinary incontinence - recommended pt to keep appt with Dr. Vazquez. 07/11/2016 Appointment: Jessica Johnson WPtel: [phone] [facility] (15 min) Moderate 07/11/2016 Patient Education: Patient Medication Summary Completed 07/11/2016 Visit Plan: Hypertension - well controlled - continue with current medications, continue with no added salt diet. Pt has been encouraged to exercise daily. The pt has been advised to call the office if there are any acute concerns about change in blood pressure readings at home. Hyperlipidemia - pt has been counseled about appropriate diet, exercise, and need for low fat food choices. I have discussed the need for the patient to take medications as prescribed. If the patient has negative side effects from the medication, they are to CALL the office and not abruptly discontinue the medication without discussion with a practitioner in the office. We will check labs in 3-6 months for follow up on the patient's chronic medical problem and to assure normal liver response to medications. flu shot Anemia - check labs 03/14/2016 Visit Plan: Hypertension - well controlled - continue with current medications, continue with no added salt diet. Pt has been encouraged to exercise daily. The pt has been advised to call the office if there are any acute concerns about change in blood pressure readings at home. Hyperlipidemia - pt has been counseled about appropriate diet, exercise, and need for low fat food choices. I have discussed the need for the patient to take medications as prescribed. If the patient has negative side effects from the medication, they are to CALL the office and not abruptly discontinue the medication without discussion with a practitioner in the office. We will check labs in 3-6 months for follow up on the patient's chronic medical problem and to assure normal liver response to medications. flu shot Anemia - check labs 03/14/2016 Visit Plan: Hypertension - well controlled - continue with current medications, continue with no added salt diet. Pt has been encouraged to exercise daily. The pt has been advised to call the office if there are any acute concerns about change in blood pressure readings at home. Hyperlipidemia - pt has been counseled about appropriate diet, exercise, and need for low fat food choices. I have discussed the need for the patient to take medications as prescribed. If the patient has negative side effects from the medication, they are to CALL the office and not abruptly discontinue the medication without discussion with a practitioner in the office. We will check labs in 3-6 months for follow up on the patient's chronic medical problem and to assure normal liver response to medications. flu shot Anemia - check labs 03/14/2016 Visit Plan: Hypertension - well controlled - continue with current medications, continue with no added salt diet. Pt has been encouraged to exercise daily. The pt has been advised to call the office if there are any acute concerns about change in blood pressure readings at home. Hyperlipidemia - pt has been counseled about appropriate diet, exercise, and need for low fat food choices. I have discussed the need for the patient to take medications as prescribed. If the patient has negative side effects from the medication, they are to CALL the office and not abruptly discontinue the medication without discussion with a practitioner in the office. We will check labs in 3-6 months for follow up on the patient's chronic medical problem and to assure normal liver response to medications. flu shot Anemia - check labs 03/14/2016 Appointment: Jessica Johnson WPtel: [address] [place], [place] [id number] New Patient 03/14/2016 Patient Education: Patient Medication Summary Completed 03/14/2016 Instructions Comment . Hypertension - well controlled - continue with current medications, continue with no added salt diet. Pt has been encouraged to exercise daily. The pt has been advised to call the office if there are any acute concerns about change in blood pressure readings at home. Hyperlipidemia - pt has been counseled about appropriate diet, exercise, and need for low fat food choices. I have discussed the need for the patient to take medications as prescribed. If the patient has negative side effects from the medication, they are to CALL the office and not abruptly discontinue the medication without discussion with a practitioner in the office. We will check labs in 3-6 months for follow up on the patient's chronic medical problem and to assure normal liver response to medications. Anemia - continue with oral iron. . Hypertension - well controlled - continue with current medications, continue with no added salt diet. Pt has been encouraged to exercise daily. The pt has been advised to call the office if there are any acute concerns about change in blood pressure readings at home. Hyperlipidemia - pt has been counseled about appropriate diet, exercise, and need for low fat food choices. I have discussed the need for the patient to take medications as prescribed. If the patient has negative side effects from the medication, they are to CALL the office and not abruptly discontinue the medication without discussion with a practitioner in the office. We will check labs in 3-6 months for follow up on the patient's chronic medical problem and to assure normal liver response to medications. flu shot Anemia - check labs . Hypertension - well controlled - continue with current medications, continue with no added salt diet. Pt has been encouraged to exercise daily. The pt has been advised to call the office if there are any acute concerns about change in blood pressure readings at home. Hyperlipidemia - pt has been counseled about appropriate diet, exercise, and need for low fat food choices. I have discussed the need for the patient to take medications as prescribed. If the patient has negative side effects from the medication, they are to CALL the office and not abruptly discontinue the medication without discussion with a practitioner in the office. We will check labs in 3-6 months for follow up on the patient's chronic medical problem and to assure normal liver response to medications. flu shot Anemia - check labs . Hypertension - well controlled - continue with current medications, continue with no added salt diet. Pt has been encouraged to exercise daily. The pt has been advised to call the office if there are any acute concerns about change in blood pressure readings at home. Hyperlipidemia - pt has been counseled about appropriate diet, exercise, and need for low fat food choices. I have discussed the need for the patient to take medications as prescribed. If the patient has negative side effects from the medication, they are to CALL the office and not abruptly discontinue the medication without discussion with a practitioner in the office. We will check labs in 3-6 months for follow up on the patient's chronic medical problem and to assure normal liver response to medications. flu shot Anemia - check labs . Hypertension - well controlled - continue with current medications, continue with no added salt diet. Pt has been encouraged to exercise daily. The pt has been advised to call the office if there are any acute concerns about change in blood pressure readings at home. Hyperlipidemia - pt has been counseled about appropriate diet, exercise, and need for low fat food choices. I have discussed the need for the patient to take medications as prescribed. If the patient has negative side effects from the medication, they are to CALL the office and not abruptly discontinue the medication without discussion with a practitioner in the office. We will check labs in 3-6 months for follow up on the patient's chronic medical problem and to assure normal liver response to medications. flu shot Anemia - check labs . Hypertension - well controlled - continue with current medications, continue with no added salt diet. Pt has been encouraged to exercise daily. The pt has been advised to call the office if there are any acute concerns about change in blood pressure readings at home. Urinary incontinence - recommended pt to keep appt with Dr. Vazquez. . Hypertension - well controlled - continue with current medications, continue with no added salt diet. Pt has been encouraged to exercise daily. The pt has been advised to call the office if there are any acute concerns about change in blood pressure readings at home. Hyperlipidemia - pt has been counseled about appropriate diet, exercise, and need for low fat food choices. I have discussed the need for the patient to take medications as prescribed. If the patient has negative side effects from the medication, they are to CALL the office and not abruptly discontinue the medication without discussion with a practitioner in the office. We will check labs in 3-6 months for follow up on the patient's chronic medical problem and to assure normal liver response to medications. Anemia - continue with oral iron. Low back pain- the patient was instructed in appropriate posture, we discussed physical therapy - he is not interested at this time. The pt is to use prn antiinflammatories to manage acute pain. The patient is to call the office if the pain is worsening or does not improve. Cerumen Impaction - The impacted cerumen was removed with the use of the ear currette. The patient tolerated the procedure without incident and had improvement in hearing. The wax was removed by the practitioner due to the wax being more complicated to remove, and staff was needed to assist the removal of the wax by holding the ear, and keeping patient stabilized during the removal process. . Hypertension - well controlled - continue with current medications, continue with no added salt diet. Pt has been encouraged to exercise daily. The pt has been advised to call the office if there are any acute concerns about change in blood pressure readings at home. Hyperlipidemia - pt has been counseled about appropriate diet, exercise, and need for low fat food choices. I have discussed the need for the patient to take medications as prescribed. If the patient has negative side effects from the medication, they are to CALL the office and not abruptly discontinue the medication without discussion with a practitioner in the office. We will check labs in 3-6 months for follow up on the patient's chronic medical problem and to assure normal liver response to medications. Anemia - continue with oral iron. Low back pain- the patient was instructed in appropriate posture, need for weight loss to alleviate abdominal obesity that is worsening the patient's back pain.. The pt is to use prn antiinflammatories to manage acute pain. The patient is to call the office if the pain is worsening or does not improve. . Hypertension - well controlled - continue with current medications, continue with no added salt diet. Pt has been encouraged to exercise daily. The pt has been advised to call the office if there are any acute concerns about change in blood pressure readings at home. Hyperlipidemia - pt has been counseled about appropriate diet, exercise, and need for low fat food choices. I have discussed the need for the patient to take medications as prescribed. If the patient has negative side effects from the medication, they are to CALL the office and not abruptly discontinue the medication without discussion with a practitioner in the office. We will check labs in 3-6 months for follow up on the patient's chronic medical problem and to assure normal liver response to medications. Anemia - continue with oral iron. . Medicare Exam - today we discussed the patients past history, immunizations, preventative exams/evaluations - colonoscopy, fecal occult blood testing, routine labs for renal function, glucose, cholesterol, osteoporosis evaluations, cardiovascular testing and cancer screenings. We have also discussed mental health and the signs/symptoms of depression. The patient was advised of home safety evaluations and the need to make sure that as the aging process continues, we need to be aware of different ways to make the home a safer place to reside. The patient has also been counseled that exercise is necessary - and of utmost importance as we age to help decrease fall risk and to maintain independece in the home. Today we discussed the need for the patient to create paperwork for Advanced directives as well as for the patient to provide this office with a copy of her DOP[employer] paperwork for health care surrogate. . Hypertension - well controlled - continue with current medications, continue with no added salt diet. Pt has been encouraged to exercise daily. The pt has been advised to call the office if there are any acute concerns about change in blood pressure readings at home. Hyperlipidemia - pt has been counseled about appropriate diet, exercise, and need for low fat food choices. I have discussed the need for the patient to take medications as prescribed. If the patient has negative side effects from the medication, they are to CALL the office and not abruptly discontinue the medication without discussion with a practitioner in the office. We will check labs in 3-6 months for follow up on the patient's chronic medical problem and to assure normal liver response to medications. Anemia - check labs - pt given rx for labs - pt to have them done after the patient is seen by oncologist/guard immigration.
--- OUTSIDE RECORDS SUMMARY | 2018-08-24 12:16 | XMS REPORT | CCD ---
Author Author Jessica Johnson MD, [facility] Address [address] [place] [address] Phone Care Team Providers Care Transfer Specialist Name Role Phone PP Unavailable CCM Unavailable Summary Purpose Interface Exchange Insurance Providers Payer name Policy type / Coverage type Covered constitution party ID Effective Begin Date Effective End Date WPS Medicare Part B Medicare Part B [id number] Unknown [facility] Medicare Part B [id number] Unknown Family history Brother Diagnosis Age At Onset Myocardial infarction Unknown Father Diagnosis Age At Onset Myocardial infarction Unknown Mother Diagnosis Age At Onset Leukemia Unknown Sister Diagnosis Age At Onset cardiac stent Unknown Social History Social History Element Codes Description Effective Dates Marital status Unknown Lor 03/14/2016 Number of children Unknown 4 03/14/2016 Employment Unknown Retired 03/14/[address]: 3641342 Former smoker Quit 1977 03/14/[address]: 784909122 Never drinks alcohol 03/14/2016 Has the patient ever used illegal drugs? Unknown Has never used illegal drugs 03/14/2016 Allergies, Adverse Reactions, Alerts Substance Reaction Codes Entered Date Inactivated Date Status NO KNOWN DRUG ALLERGIES Unknown 03/14/2016 No Inactive Date Active Past Medical History Illness Codes Condition Status Onset Date Resolved Date Essential (primary) hypertension ICD-9: 401.1 ICD-10: I10 Active 03/13/2016 Unknown Mixed hyperlipidemia ICD-9: 272.2 ICD-10: E78.2 Active 03/13/2016 Unknown Other iron deficiency anemias ICD-9: 280.1 ICD-10: D50.8 Active 11/07/2016 Unknown Pain in right knee ICD -9: 719.46 ICD-10: M25.561 Active 07/30/2018 Unknown Encounter for general adult medical examination with abnormal findings ICD-9: V70.0 ICD-10: Z00.01 Active 02/12/2018 Unknown Impacted cerumen, bilateral ICD-9: 389.8 ICD-10: H61.23 Active 01/22/2018 Unknown Low back pain ICD-9: 724.2 ICD-10: M54.5 Active 01/22/2018 Unknown Mixed conductive and sensorineural hearing loss, 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 ICD-10: H90.6 Active 01/22/2018 Unknown Primary generalized (osteo)arthritis ICD-9: 715.09 ICD-10: M15.0 Active 01/22/2018 Unknown Encounter for immunization ICD-9: V04.81 ICD-10: Z23 Active 03/13/2016 Unknown Problems Condition Codes Effective Dates Condition Status Essential (primary) hypertension ICD-9: 401.1 ICD-10: I10 03/13/2016 Active Mixed hyperlipidemia ICD-9: 272.2 ICD-10: E78.2 03/13/2016 Active Other iron deficiency anemias ICD-9: 280.1 ICD-10: D50.8 11/07/2016 Active Pain in right knee ICD -9: 719.46 ICD-10: M25.561 07/30/2018 Active Encounter for general adult medical examination with abnormal findings ICD-9: V70.0 ICD-10: Z00.01 02/12/2018 Active Impacted cerumen, bilateral ICD-9: 389.8 ICD-10: H61.23 01/22/2018 Active Low back pain ICD-9: 724.2 ICD-10: M54.5 01/22/2018 Active Mixed conductive and sensorineural hearing loss, 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 ICD-10: H90.6 01/22/2018 Active Primary generalized (osteo)arthritis ICD-9: 715.09 ICD-10: M15.0 01/22/2018 Active Encounter for immunization ICD-9: V04.81 ICD-10: Z23 03/13/2016 Active Medications Medication Codes Instructions Start Date Stop Date Status Fill Instructions simvastatin 80 mg tablet RxNorm: 022287 1 Tablet(s) PO daily No Stop Date Active ranitidine 300 mg tablet RxNorm: 669274 1 Tablet(s) PO daily No Stop Date Active nystatin 100,000 unit/mL oral suspension RxNorm: 765538 5 Milliliter(s) PO swish and swallow four times a day and brush dentures with this mix one time a day and then soak 11/07/2016 11/13/2016 Inactive please deliver to the patient's home sotalol 80 mg tablet RxNorm: 577670 1/2 Tablet(s) PO BID 201505/28/2016 Inactive timolol maleate 0.25 % eye drops RxNorm: 672759 1 Drop(s) OPH BID No Start Date Active Vitamin B-12 1,000 mcg/mL injection solution RxNorm: 756718 1 Milliliter(s) Inj monthly No Start Date Active Iron (ferrous sulfate) 325 mg (65 mg iron) tablet RxNorm: 609398 1 Tablet(s) PO BID No Start Date Active latanoprost (PF) ophthalmic (eye) RxNorm: ophthalmic (eye) No Start Date Active Aspirin Low Dose 81 mg tablet,delayed release RxNorm: 642325 1 Tablet(s) PO every other day No Start Date Active tamsulosin 0.4 mg capsule RxNorm: 985467 1 Capsule(s) PO QPM No Start Date Active Men's One Daily tablet RxNorm: 1 Tablet(s) PO daily No Start Date Active doxazosin 8 mg tablet RxNorm: 877203 1 Tablet(s) PO QHS No Start Date 07/29/2018 Inactive clopidogrel 75 mg tablet RxNorm: 415147 1 Tablet(s) PO daily No Start Date 01/21/2018 Inactive magnesium oxide 500 mg tablet RxNorm: 286596 1 Tablet(s) PO daily No Start Date 01/21/2018 Inactive ranitidine 300 mg tablet RxNorm: 758965 1 Tablet(s) PO BID No Start Date 01/21/2018 Inactive simvastatin 80 mg tablet RxNorm: 275765 1/2 Tablet(s) PO daily No Start Date 07/29/2018 Inactive folic acid 400 mcg tablet RxNorm: 924354 1 Tablet(s) PO daily No Start Date 01/21/2018 Inactive sotalol 80 mg tablet RxNorm: 177949 1/2 Tablet(s) PO BID No Start Date 05/14/2016 Inactive tolterodine ER 4 mg capsule,extended release 24 hr RxNorm: 637897 1 Capsule(s) PO daily No Start Date 01/21/2018 Inactive Medication Administered No Medication Administered data Immunizations Vaccine Codes Date Status Influenza CVX: 141 03/14/2016 completed Assessments Condition Codes Effective Dates Mixed hyperlipidemia ICD-10: E78.2 ICD-9: 272.2 07/30/2018 Pain in right knee ICD-10: M25.561 ICD-9: 719.46 07/30/2018 Essential (primary) hypertension ICD-10: I10 ICD-9: 401.1 07/30/2018 Other iron deficiency anemias ICD-10: D50.8 ICD-9: 280.1 07/30/2018 Encounter for general adult medical examination with abnormal findings ICD-10: Z00.01 ICD-9: V70.0 02/12/2018 Mixed conductive and sensorineural hearing loss, bilateral ICD-10: H90.6 ICD-9: 389.22 01/22/2018 Impacted cerumen, bilateral ICD-10: H61.23 ICD-9: 389.8 01/22/2018 Low back pain ICD-10: M54.5 ICD-9: 724.2 01/22/2018 Primary generalized (osteo)arthritis ICD-10: M15.0 ICD-9: 715.09 01/22/2018 Benign prostatic hyperplasia with lower urinary tract symptoms ICD-10: N40.1 ICD-9: 600.01 07/11/2016 Encounter for immunization ICD-10: Z23 ICD-9: V04.81 03/14/2016 Reason For Visit Reason For Visit Effective Dates Notes hypertension 07/30/2018 Annual Medicare Wellness Exam 02/12/2018 hypertension 01/22/2018 hypertension 07/25/2017 hypertension 03/04/2017 hypertension 11/07/2016 hypertension 07/11/2016 hypertension 03/14/2016 Results No Results data Review of Systems System Result Effective Dates Constitutional No recent illness 2018 Constitutional No chills 07/30/2018 Constitutional No fatigue 07/30/2018 Constitutional No fever 07/30/2018 Constitutional No insomnia 07/30/2018 Constitutional No malaise 07/30/2018 Eyes No blindness 07/30/2018 Eyes No vision change 07/30/2018 Ears/Nose/Throat/Neck No dizziness 2018 Ears/Nose/Throat/Neck No dysphagia 2018 Ears/Nose/Throat/Neck No headache 2018 Ears/Nose/Throat/Neck hearing loss 2018 Ears/Nose/Throat/Neck No nasal allergies 07/30/2018 Ears/Nose/Throat/Neck No sore throat 11/2018 Ears/Nose/Throat/Neck No postnasal drip 07/30/2018 Ears/Nose/Throat/Neck No sinus congestion 07/30/2018 Cardiovascular No chest pain/pressure 11/2018 Cardiovascular No dyspnea 07/30/2018 Cardiovascular No edema 07/30/2018 Cardiovascular No exercise intolerance Cardiovascular No fatigue 07/30/2018 Cardiovascular No near-syncope/dizziness 07/30/2018 Respiratory No chest tightness 2018 Respiratory No cough 07/30/2018 Respiratory No dyspnea 07/30/2018 Respiratory No pedal edema 07/30/2018 Gastrointestinal No abdominal pain 2018 Gastrointestinal No constipation 2018 Gastrointestinal No diarrhea 07/30/2018 Gastrointestinal No gastroesophageal reflux 07/30/2018 Gastrointestinal No nausea 07/30/2018 Gastrointestinal No vomiting 07/30/2018 Genitourinary/Nephrology No dysuria 07/30 Genitourinary/Nephrology nocturia 2018 Genitourinary/Nephrology No urinary incontinence 07/30/2018 Musculoskeletal stiffness 07/30/2018 Musculoskeletal No swelling 07/30/2018 Musculoskeletal back pain 07/30/2018 Musculoskeletal joint complaint 2018 Musculoskeletal No muscle weakness 2018 Dermatologic No rash 07/30/2018 Dermatologic No sores 07/30/2018 Dermatologic No scar 07/30/2018 Neurologic No dizziness 07/30/2018 Neurologic No headache 07/30/2018 Neurologic No neck pain 07/30/2018 Neurologic No syncope 07/30/2018 Psychiatric No anxiety 07/30/2018 Psychiatric No depression 07/30/2018 Constitutional No recent illness 2017 Constitutional No [...] 1994 Constitutional general appearance Development: well developed 07/30/2018 None Full Exam - General 1994 Constitutional general appearance Development: appears stated age 0207/30/2018 None Full Exam - General 1994 Constitutional general appearance Hygiene/Attention to Grooming: good hygiene 07/30/2018 None Full Exam - General 1994 Eyes conjunctiva /eyelids Overall: conjunctiva clear 07/30/2018 None Full Exam - General 1994 Eyes conjunctiva /eyelids Overall: cornea clear 07/30/2018 None Full Exam - General 1994 Eyes conjunctiva /eyelids Overall: eyelids normal 07/30/2018 None Full Exam - General 1994 Eyes pupils and irises Overall: pupils equal, round, reactive to light and accomodation 07/30/2018 None Full Exam - General 1994 Ears/Nose/Throat otoscopic exam External auditory canal: complete cerumen impaction 07/30/2018 None Full Exam - General 1994 Ears/Nose/Throat otoscopic exam Tympanic membrane: tympanosclerosis 07/30/2018 visualized after cerumen removal Full Exam - General 1994 Ears/Nose/Throat lips/teeth/gingiva Overall: benign lips 07/30/2018 None Full Exam - General 1994 Ears/Nose/Throat lips/teeth/gingiva Overall: normal dentition 07/30/2018 None Full Exam - General 1994 Ears/Nose/Throat oral cavity/pharynx/larynx Overall: oral mucosa clear 07/30/2018 None Full Exam - General 1994 Ears/Nose/Throat oral cavity/pharynx/larynx Overall: oropharyngeal mucosa clear 07/30/2018 None Full Exam - General 1995 Ears/Nose/Throat oral cavity/pharynx/larynx Overall: hypopharynx benign 07/30/2018 None Full Exam - General 1994 Ears/Nose/Throat oral cavity/pharynx/larynx Overall: no masses 07/30/2018 None Full Exam - General 1994 Respiratory auscultation Overall: breath sounds clear bilaterally 07/30/2018 None Full Exam - General 1994 Respiratory respiratory effort/rhythm Overall: no retractions 07/30/2018 None Full Exam - General 1994 Respiratory respiratory effort/rhythm Overall: normal rate 07/30/2018 None Full Exam - General 1994 Cardiovascular extremities Overall: no clubbing 07/30/2018 None Full Exam - General 1994 Cardiovascular auscultation of heart Overall: regular rate 07/30/2018 None Full Exam - General 1994 Cardiovascular auscultation of heart Overall: normal heart sounds 07/30/2018 None Full Exam - General 1994 Abdomen abdominal exam Overall: no tenderness 07/30/2018 None Full Exam - General 1994 Abdomen abdominal exam Overall: normal bowel sounds 07/30/2018 None Full Exam - General 1994 Lymphatic neck nodes Overall: anterior cervical chain benign 07/30/2018 None Full Exam - General 1994 Lymphatic neck nodes Overall: posterior cervical chain benign 07/30/2018 None Full Exam - General 1994 Musculoskeletal spine, ribs and pelvis Overall: spine benign 07/30/2018 None Full Exam - General 1994 Musculoskeletal spine, ribs and pelvis Overall: sacroiliac joint benign 07/30/2018 None Full Exam - General 1994 Musculoskeletal spine, ribs and pelvis Overall: good posture 07/30/2018 None Full Exam - General 1994 Musculoskeletal head and neck Overall: head atraumatic 07/30/2018 None Full Exam - General 1994 Musculoskeletal head and neck Overall: cervical spine benign 07/30/2018 None Full Exam - General 1994 Integument inspection of skin Overall: few scattered moles, no gross abnormalities 07/30/2018 None Full Exam - General 1994 Neurologic deep tendon reflexes Overall: deep tendon reflexes intact 07/30/2018 None Full Exam - General 1994 Neurologic cranial nerves Overall: crainial nerves 2 - 12 grossly intact 07/30/2018 None Full Exam - General 1994 Psychiatric orientation/consciousness Overall: oriented to person, place and time 07/30/2018 None Full Exam - General 1994 Psychiatric mood and affect Overall: normal mood and affect 07/30/2018 None Full Exam - General 1994 Musculoskeletal lower extremity Inspection - knee: varus deformity 07/30/2018 None Full Exam - General 1994 Constitutional [...] impaction 01/22/2018 None Full Exam - General 1994 Ears/Nose/Throat otoscopic exam Tympanic membrane: tympanosclerosis 01/22/2018 [...] Formatting Model/CDA Sections, Assigned to/Dennise Goyal CPT-4: [id number] 03/14/2016 Vital Signs Date Vital 07/30/2018 Blood Pressure 1: 144/78 Code : 8480-6 BMI: 29.8 Code : 28361-4 Heart Rate 1 : 68 bpm Height: 5'7" SpO2: 98% Weight: 190 lbs 02/12/2018 Blood Pressure 1: 140/68 Code : 8480-6 BMI: 29.1 Code : 88955-0 Heart Rate 1 : 66 bpm Height: 5'7" Waist Measure (cm): 107 cm Weight: 186 lbs 01/22/2018 Blood Pressure 1: 122/66 Code : 8480-6 BMI: 28.8 Code : 92226-9 Heart Rate 1 : 56 bpm Height: 5'7" SpO2: 98% Weight: 184 lbs 07/25/2017 Blood Pressure 1: 126/62 Code : 8480-6 BMI: 28.7 Code : 74742-9 Heart Rate 1 : 66 bpm Height: 5'7" SpO2: 98% Weight: 183 lbs 03/04/2017 Blood Pressure 1: 110/56 Code : 8480-6 BMI: 27.7 Code : 07200-4 Heart Rate 1 : 56 bpm Height: 5'7" SpO2: 97% Weight: 177 lbs 11/07/2016 Blood Pressure 1: 128/66 Code : 8480-6 BMI: 27.9 Code : 95584-7 Heart Rate 1 : 65 bpm Height: 5'7" SpO2: 99% Weight: 178 lbs 07/11/2016 Blood Pressure 1: 118/56 Code : 8480-6 BMI: 28.5 Code : 43721-3 Heart Rate 1 : 57 bpm Height: 5'7" SpO2: 97% Weight: 182 lbs 03/14/2016 Blood Pressure 1: 118/60 Code : 8480-6 BMI: 27.1 Code : 34865-8 Heart Rate 1 : 70 bpm Height: 5'7" SpO2: 93% Weight: 173 lbs Functional Status No Functional Status data History of Present Illness Symptom Name Status Result Effective Date Notes Quality chronic 07/30 None Quality primary hypertension 07/30/2018 None Onset and Resolution ongoing 07/30/2018 None Onset of Symptom during adulthood 07/30/2018 None Blood Pressure Values not checking blood pressure at home 07/30/2018 None Alleviating Factors medication 07/30/2018 None Pertinent Findings dizziness 07/30/2018 when he first stands up Pertinent Findings dyspnea 07/30/2018 "a little bit" if he tries to walk very far Pertinent Findings Denies edema 07/30/2018 None Onset and Resolution gradual in onset 07/30/2018 None Onset of Symptom during adulthood 07/30/2018 None Significant Medications statin 07/30/2018 None Alleviating Factors medication 07/30/2018 None Exacerbating Factors diet 07/30/2018 None Annual Medicare Wellness Exam Alcohol Use does [...] data Encounters Encounter Performer Location Codes Date ([id number]) [id number] EST. PATIENT, LEVEL IV Diagnosis: Essential (primary) hypertension[ICD10: I10] Diagnosis: Mixed hyperlipidemia[ICD10: E78.2] Diagnosis: Pain in right knee[ICD10: M25.561] Diagnosis: Other iron deficiency anemias[ICD10: D50.8] [facility] CPT-4: 62703 07/30/2018 ([id number]) 33606 EST. PATIENT, LEVEL IV Diagnosis: Essential (primary) hypertension[ICD10: I10] Diagnosis: Primary generalized (osteo)arthritis[ICD10: M15.0] Diagnosis: Low back pain[ICD10: M54.5] Diagnosis: Mixed hyperlipidemia[ICD10: E78.2] Diagnosis: Other iron deficiency anemias[ICD10: D50.8] Diagnosis: Impacted cerumen, bilateral[ICD10: H61.23] Diagnosis: Mixed conductive and sensorineural hearing loss, bilateral[ICD10: H90.6] [facility] CPT-4: 23744 2017 ([id number]) 59252 EST. PATIENT, LEVEL IV Diagnosis: Essential (primary) hypertension[ICD10: I10] Diagnosis: Mixed hyperlipidemia[ICD10: E78.2] Diagnosis: Other iron deficiency anemias[ICD10: D50.8] Jessica Johnson MD [facility] CPT-4: 50828 07/25/2017 ([id number]) 23299 EST. PATIENT, LEVEL III Diagnosis: Mixed hyperlipidemia[ICD10: E78.2] Diagnosis: Essential (primary) hypertension[ICD10: I10] Diagnosis: Other iron deficiency anemias[ICD10: D50.8] Jessica Johnson MD [facility] CPT-4: 02444 03/04/2017 ([id number]) 04547 EST. PATIENT, LEVEL IV Diagnosis: Essential (primary) hypertension[ICD10: I10] Diagnosis: Mixed hyperlipidemia[ICD10: E78.2] Diagnosis: Other iron deficiency anemias[ICD10: D50.8] Jessica Johnson MD [facility] CPT-4: 20842 11/07/2016 ([id number]) 64028 EST. PATIENT, LEVEL IV Diagnosis: Essential (primary) hypertension[ICD10: I10] Diagnosis: Benign prostatic hyperplasia with lower urinary tract symptoms[ICD10 : N40.1] Jessica Johnson MD, [facility] CPT-4: 26865 2016 ([id number]) OFFICE VISIT, NEW - LEVEL 4 Diagnosis: Essential (primary) hypertension[ICD10: I10] Diagnosis: Mixed hyperlipidemia[ICD10: E78.2] Diagnosis: Encounter for immunization[ICD10: Z23] Jessica Johnson MD, [facility] CPT-4: 86243 03/14/2016 Plan of Care Planned Activity Notes Codes Status Date Visit Plan: Hypertension - well controlled - continue with current medications, continue with no added salt diet. Pt has been encouraged to exercise daily. The pt has been advised to call the office if there are any acute concerns about change in blood pressure readings at home. Knee pain - persistent - discussed treatment for patient - he is not interested in any treatment/injections/therapy. Hyperlipidemia - pt has been counseled about [...] medications. Anemia - continue with oral iron. 07/30/2018 Appointment: Jessica Johnson WPtel: [phone] [facility] (30 min) Complex 07/30/2018 Patient Education: Patient Medication Summary Completed 07/30/2018 Patient Education: Cholesterol Management Completed 07/30/2018 Appointment: Aniyah Wiggins WPtel: [phone] [facility] [facility] - Annual Wellness Visit 02/19/2018 Visit Plan: Medicare Exam - today we [...] care surrogate. 02/12/2018 Appointment: Aniyah Wiggins WPtel: [phone] [facility] [facility] - Annual Wellness Visit 02/12/2018 Patient Education: [...] not improve. 01/22/2018 Appointment: Jessica Johnson WPtel: [address] [place], [place] [id number] (30 min) Complex 01/22/2018 Patient Education: Patient Medication Summary Completed [...] oral iron. 07/25/2017 Appointment: Jessica Johnson WPtel: [facility]5 [facility] (15 min) Moderate 07/25/2017 Patient Education: Patient Medication Summary Completed 07/25/2017 Appointment: Jessica Johnson WPtel: [address] [place], [place] [phone] (15 min) Moderate 07/09/2017 Visit Plan: Hypertension [...] - continue with oral iron. 03/04/2017 Appointment: Jessica Johnson WPtel: [facility] (15 min) Moderate 03/04/2017 Patient Education: Patient [...] done after the patient is seen by oncologist/assistant customer service manager. 11/07/2016 Appointment: Jessica Johnson WPtel: [phone] [facility] (15 min) Moderate 11/07/2016 Patient Education: Patient [...] Dr. Vazquez. 07/11/2016 Appointment: [phone] (15 min) Moderate 07/11/2016 Patient Education: Patient [...] check labs 03/14/2016 Appointment: [facility]el[phone] [place] [facility] 03/14/2016 Patient Education: Patient Medication [...] change in blood pressure readings at home. Knee pain - persistent - discussed treatment for patient - he is not interested in any treatment/injections/therapy. Hyperlipidemia - pt has been counseled about [...] done after the patient is seen by oncologist/assistant customer service manager.
--- OUTSIDE RECORDS SUMMARY | 2018-08-24 12:17 | XMS REPORT | CCD ---
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 Name Role Phone PP Unavailable CCM Unavailable Summary Purpose Interface Exchange Insurance Providers Payer name Policy type / Coverage type Covered constitution party ID Effective Begin Date Effective End Date WPS Medicare Part B Medicare Part B [id number] Unknown [facility] Medicare Part B [id number] Unknown Family history Brother Diagnosis Age At Onset Myocardial infarction Unknown Father Diagnosis Age At Onset Myocardial infarction Unknown Mother Diagnosis Age At Onset Leukemia Unknown Sister Diagnosis Age At Onset cardiac stent Unknown Social History Social History Element Codes Description Effective Dates Marital status Unknown Lor 03/14/2016 Number of children Unknown 4 03/14/2016 Employment Unknown Retired 03/14/[address]: 4979580 Former smoker Quit 1977 03/14/[address]: 172173873 Never drinks alcohol 03/14/2016 Has the patient [...] Fill Instructions ranitidine 300 mg tablet RxNorm: 888339 1 Tablet(s) PO daily No Stop Date Active nystatin 100,000 unit/mL oral suspension RxNorm: 127820 5 Milliliter(s) PO swish and swallow four times a day and brush dentures with this mix one time a day and then soak 11/07/2016 11/13/2016 Inactive please deliver to the patient's home sotalol 80 mg tablet RxNorm: 006462 1/2 Tablet(s) PO BID 201505/28/2016 Inactive doxazosin 8 mg tablet RxNorm: 276520 1 Tablet(s) PO QHS No Start Date Active timolol maleate 0.25 % eye drops RxNorm: 479057 1 Drop(s) OPH BID No Start Date Active Vitamin B-12 1,000 mcg/mL injection solution RxNorm: 317968 1 Milliliter(s) Inj monthly No Start Date Active Iron (ferrous sulfate) 325 mg (65 mg iron) tablet RxNorm: 299940 1 Tablet(s) PO BID No Start Date Active simvastatin 80 mg tablet RxNorm: 806725 1/2 Tablet(s) PO daily No Start Date Active latanoprost (PF) ophthalmic (eye) RxNorm: ophthalmic (eye) No Start Date Active Men's One Daily tablet RxNorm: 1 Tablet(s) PO daily No Start Date Active clopidogrel 75 mg tablet RxNorm: 028984 1 Tablet(s) PO daily No Start Date 01/21/2018 Inactive magnesium oxide 500 mg tablet RxNorm: 844767 1 Tablet(s) PO daily No Start Date 01/21/2018 Inactive ranitidine 300 mg tablet RxNorm: 747184 1 Tablet(s) PO BID No Start Date 01/21/2018 Inactive folic acid 400 mcg tablet RxNorm: 180574 1 Tablet(s) PO daily No Start Date 01/21/2018 Inactive sotalol 80 mg tablet RxNorm: 385688 1/2 Tablet(s) PO BID No Start Date 05/14/2016 Inactive tolterodine ER 4 mg capsule,extended release 24 hr RxNorm: 155136 1 Capsule(s) PO daily No Start Date [...] Formatting Model/CDA Sections, Assigned to/Dennise Goyal CPT-4: [id number] 03/14/2016 Vital Signs Date Vital 02/12/2018 Blood Pressure 1: 140/68 Code : 8480-6 BMI: 29.1 Code : 07398-9 Heart Rate 1 : 66 bpm Height: 5'7" Waist Measure (cm): 107 cm Weight: 186 lbs 01/22/2018 Blood Pressure 1: 122/66 Code : 8480-6 BMI: 28.8 Code : 71265-6 Heart Rate 1 : 56 bpm Height: 5'7" SpO2: 98% Weight: 184 lbs 07/25/2017 Blood Pressure 1: 126/62 Code : 8480-6 BMI: 28.7 Code : 13726-3 Heart Rate 1 : 66 bpm Height: 5'7" SpO2: 98% Weight: 183 lbs 03/04/2017 Blood Pressure 1: 110/56 Code : 8480-6 BMI: 27.7 Code : 30322-1 Heart Rate 1 : 56 bpm Height: 5'7" SpO2: 97% Weight: 177 lbs 11/07/2016 Blood Pressure 1: 128/66 Code : 8480-6 BMI: 27.9 Code : 92620-3 Heart Rate 1 : 65 bpm Height: 5'7" SpO2: 99% Weight: 178 lbs 07/11/2016 Blood Pressure 1: 118/56 Code : 8480-6 BMI: 28.5 Code : 60752-4 Heart Rate 1 : 57 bpm Height: 5'7" SpO2: 97% Weight: 182 lbs 03/14/2016 Blood Pressure 1: 118/60 Code : 8480-6 BMI: 27.1 Code : 50756-9 Heart Rate 1 : 70 bpm Height: [...] data Encounters Encounter Performer Location Codes Date ([id number]) [id number] EST. 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 PATIENT, LEVEL IV Diagnosis: Essential (primary) hypertension[ICD10: I10] Diagnosis: Mixed hyperlipidemia[ICD10: E78.2] Diagnosis: Other iron deficiency anemias[ICD10: D50.8] Jessica Johnson MD, [facility] CPT-4: 43757 07/25/2017 [id number]) 82060 EST. PATIENT, LEVEL III Diagnosis: Mixed hyperlipidemia[ICD10: E78.2] Diagnosis: Essential (primary) hypertension[ICD10: I10] Diagnosis: Other iron deficiency anemias[ICD10: D50.8] Jessica Johnson MD, [facility] CPT-4: 69306 03/04/2017 [id number]) 27130 EST. PATIENT, LEVEL IV Diagnosis: Essential (primary) hypertension[ICD10: I10] Diagnosis: Mixed hyperlipidemia[ICD10: E78.2] Diagnosis: Other iron deficiency anemias[ICD10: D50.8] Jessica Johnson MD, [facility] CPT-4: 49934 11/07/2016 [id number]) 85698 EST. PATIENT, LEVEL IV Diagnosis: Essential (primary) hypertension[ICD10: I10] Diagnosis: Benign prostatic hyperplasia with lower urinary tract symptoms[ICD10 : N40.1] Jessica Johnson MD, [facility] CPT-4: 41810 2016 ([id number]) OFFICE VISIT, NEW - LEVEL 4 Diagnosis: Essential (primary) hypertension[ICD10: I10] Diagnosis: Mixed hyperlipidemia[ICD10: E78.2] Diagnosis: Encounter for immunization[ICD10: Z23] [facility] CPT-4: 97716 03/14/2016 Plan of Care Planned Activity Notes [...] surrogate. 02/12/2018 Appointment[facility] [phone] [phone] [facility] - [facility] Well[facility] 02/12/2018 Patient Education: [...] not improve. 01/22/2018 Appointment: Jessica Johnson WPtel: [address] [place], [place] [phone] (30 min) [facility] 01/22/2018 Patient Education: Patient Medication Summary Completed [...] oral iron. 07/25/2017 Appointment: Jessica Johnson WPtel: [phone] [facility] (15 min) Moderate 07/25/2017 Patient Education: Patient Medication Summary Completed 07/25/2017 Appointment: Jessica Johnson WPtel: [phone] [facility] (15 min) Moderate 07/09/2017 Visit Plan: [...] oral iron. 03/04/2017 Appointment: Alex Jessica WPtel: [phone] [facility] (15 min) Moderate 03/04/2017 Patient Education: [...] done after the patient is seen by oncologist/sales forecast analyst. 11/07/2016 Appointment: Alex Jessica WPtel: [phone] [facility] (15 min) Moderate 11/07/2016 Patient Education: [...] recommended pt to keep appt with Dr. Vazquze. 07/11/2016 Appointment: Jessica Johnson WPtel: [phone] [facility] (15 min) Moderate 07/11/2016 Patient Education: [...] check labs 03/14/2016 Appointment: Jessica Johnson WPtel: [address] [place], [place] [phone] New Patient 03/14/2016 Patient Education: Patient Medication [...] done after the patient is seen by oncologist/sales forecast analyst.
--- OUTSIDE RECORDS SUMMARY | 2018-08-24 12:19 | XMS REPORT | Continuity of Care Document ---
Author Author [facility] Organization [facility] Address Unknown Phone Unavailable Allergies Active Description Code Type Severity Reaction Onset Reported/Identified Relationship to Patient Clinical Status Yes No Known Drug Allergies [id number] Drug Allergy Unknown N/A 04/18/2011 Medications There is no data. Problems Date Dx Coded Attending Type Code Diagnosis Diagnosed By 05/23/1038 TUSHAR TAMAYO MD, Ot D53.9 NUTRITIONAL ANEMIA, UNSPECIFIED 05/23/1038 TUSHAR TAMAYO MD, Ot Z79.899 OTHER HALF-WAY (CURRENT) DRUG THERAPY 05/23/1049 TUSHAR TAMAYO MD, Ot D53.9 NUTRITIONAL ANEMIA, UNSPECIFIED 05/23/1049 TUSHAR TAMAYO MD, Ot Z79.899 OTHER HALF-WAY (CURRENT) DRUG THERAPY 05/23/1106 ADRIANE MURRAY MD Ot D64.9 ANEMIA, UNSPECIFIED 05/23/1106 ADRIANE MURRAY MD, Ot D72.819 DECREASED WHITE BLOOD CELL COUNT, UNSPEC 05/23/1106 ADRIANE MURRAY MD Ot I25.10 ATHSCL HEART DISEASE OF [place] CORONARY 05/23/1106 ADRIANE MURRAY MD Ot N28.89 OTHER SPECIFIED DISORDERS OF KIDNEY AND 05/23/1106 ADRIANE MURRAY MD Ot R97.2 ELEVATED PROSTATE SPECIFIC ANTIGEN [PSA] 05/23/1106 ADRIANE MURRAY MD, Ot Z79.02 HALF-WAY (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 OF 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 05/23/1106 ADRIANE MURRAY MD, Ot 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 10/13/2009 Ot 285.9 ANEMIA NOS 10/13/2009 Ot 535.40 OTH SPECIFIED GASTRITIS,W/O MENTION OF H 10/13/2009 Ot 562.10 DIVERTICULOSIS COLON (W/O MENT OF HEMORR 03/05/2010 Ot 280.9 01/27/2015 NATALIE ANN Ot 414.00 01/27/2015 NATALIE ANN Ot 780.4 01/27/2015 NATALIE ANN GROUND WATER 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 Ot 780.79 01/27/2015 NATALIE ANNP Ot 786.05 01/27/2015 NATALIE ANNP Ot V45.81 02/14/2015 NATALIE ANNP Ot 414.00 02/14/2015 NATALIE ANN GROUND WATER 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 Ot 780.4 02/14/2015 NATALIE ANN GROUND WATER 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 Ot 780.79 02/14/2015 NATALIE ANNP Ot 786.05 02/14/2015 NATALIE ANNP Ot V45.81 06/14/2015 TANIA BARNARD, PETRA Mccurdy Ot D64.9 06/14/2015 TANIA BARNARD, PETRA Mccurdy Ot I10 06/14/2015 PETRA MARIN MD Ot I48.91 06/15/2015 PETRA MRAIN MD Ot D64.9 06/15/2015 PETRA MARIN MD Ot I10 06/15/2015 TANIA BARNARD, PETRA Mccurdy Ot I48.91 07/15/2015 Ot 285.9 07/15/2015 Ot 531.90 07/15/2015 Ot 537.82 07/15/2015 Ot 280.9 07/15/2015 Ot 401.9 07/15/2015 Ot 414.01 07/15/2015 Ot 780.79 07/15/2015 Ot V58.63 07/15/2015 Ot V58.69 07/15/2015 NATALIE ANNP Ot 414.01 07/15/2015 NATALIE ANNP Ot 443.9 07/15/2015 NATALIE ANN GROUND WATER 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 Ot 729.5 07/15/2015 NATALIE ANN GROUND WATER 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 Ot 780.79 07/15/2015 CARMEN BARNARD, MICHAEL Griggs Ot 440.20 07/15/2015 CARMEN BARNARD, MICHAEL Griggs Ot 440.8 07/15/2015 CARMEN BARNARD, MICHAEL Griggs Ot 593.9 07/15/2015 NATALIE NAN GROUND WATER 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 Ot 414.00 07/15/2015 NATALIE ANNP Ot 780.4 07/15/2015 NATALIE ANN GROUND WATER 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 Ot 780.79 07/15/2015 NATALIE ANN GROUND WATER 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 Ot 786.05 07/15/2015 NATALIE ANN GROUND WATER 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 Ot V45.81 07/15/2015 TANIA BARNARD, PETRA Mccurdy Ot D64.9 07/15/2015 TANIA BARNARD, PETRA Mccurdy Ot I10 07/15/2015 TANIA BARNARD, PETRA Mccurdy Ot I48.91 07/15/2015 SOFY BARNARD, ELODIA Cohn Ot D64.9 07/15/2015 SOFY BARNARD, ELODIA Cohn Ot Z01.818 07/15/2015 SOFY BARNARD, ELODIA Cohn Ot Z12.11 07/15/2015 SOFY BARNARD, ELODIA Cohn Ot D64.9 ANEMIA, UNSPECIFIED 07/15/2015 SOFY BARNARD, ELODIA Cohn Ot K29.70 GASTRITIS, UNSPECIFIED, WITHOUT BLEEDING 07/15/2015 SOFY BARNARD, ELODIA Cohn Ot K44.9 DIAPHRAGMATIC HERNIA WITHOUT OBSTRUCTION 07/15/2015 SOFY BARNARD, ELODIA Cohn Ot K57.30 DVRTCLOS OF LG INT W/O PERFORATION OR AB 07/15/2015 ELODIA GOETZ MD Ot K63.5 POLYP OF COLON 07/15/2015 ELODIA GOETZ MD Ot Z12.31 ENCNTR SCREEN MAMMOGRAM FOR MALIGNANT NE 07/15/2015 SOFY BARNARD, ELODIA Cohn Ot Z79.02 HALF-WAY (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 OF 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 12/07/2015 Ot 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 [place] ARTERIES OF [facility] 12/07/2015 Ot I70.212 ATHSCL [place] ARTERIES OF [facility] 12/07/2015 Ot 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 [place] ARTERIES OF [facility] 12/07/2015 Ot I70.212 ATHSCL [place] ARTERIES OF [facility] 12/08/2015 RIGO JARQUIN Ot I73.9 PERIPHERAL VASCULAR DISEASE, UNSPECIFIED 12/08/2015 RIGO JARQUIN Ot I73.9 PERIPHERAL VASCULAR DISEASE, UNSPECIFIED 12/28/2015 Ot 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 12/28/2015 Ot 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 01/13/2016 Ot 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 01/13/2016 Ot 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 02/10/2016 PETRA MARIN MD Ot D64.9 ANEMIA, UNSPECIFIED 02/10/2016 PETRA MARIN MD Ot I25.10 ATHSCL HEART DISEASE OF [place] CORONARY 02/10/2016 PETRA MARIN MD Ot N18.9 CHRONIC KIDNEY DISEASE, UNSPECIFIED 02/10/2016 PETRA MARIN MD Ot R06.00 DYSPNEA, UNSPECIFIED 02/10/2016 RIGO JARQUIN R Ot I73.9 PERIPHERAL VASCULAR DISEASE, UNSPECIFIED 02/17/2016 ADRIANE MURRAY MD Ot D64.9 ANEMIA, UNSPECIFIED 02/17/2016 ADRIANE MURRAY MD Ot R97.2 ELEVATED PROSTATE SPECIFIC ANTIGEN [PSA] 03/02/2016 PETRA MARIN MD Ot D64.9 ANEMIA, UNSPECIFIED 03/02/2016 PETRA MARIN MD Ot I25.10 ATHSCL HEART DISEASE OF [place] CORONARY 03/02/2016 PETRA MARIN MD Ot N18.9 CHRONIC KIDNEY DISEASE, UNSPECIFIED 03/02/2016 PETRA MARIN MD Ot R06.00 DYSPNEA, UNSPECIFIED 03/05/2016 RIGO JARQUIN R Ot I73.9 PERIPHERAL VASCULAR DISEASE, UNSPECIFIED 03/09/2016 ADRIANE MURRAY MD Ot D64.9 ANEMIA, UNSPECIFIED 03/09/2016 ADRIANE MURRAY MD Ot R97.2 ELEVATED PROSTATE SPECIFIC ANTIGEN [PSA] 03/13/2016 PETRA MARIN MD Ot D64.9 ANEMIA, UNSPECIFIED 03/13/2016 PETRA MARIN MD Ot I25.10 ATHSCL HEART DISEASE OF [place] CORONARY 03/13/2016 PETRA MARIN MD Ot N18.9 CHRONIC KIDNEY DISEASE, UNSPECIFIED 03/13/2016 PETRA MARIN MD Ot R06.00 DYSPNEA, UNSPECIFIED 03/15/2016 ADRIANE MURRAY MD Ot D64.9 ANEMIA, UNSPECIFIED 03/15/2016 ADRIANE MURRAY MD Ot I25.10 ATHSCL HEART DISEASE OF [place] CORONARY 03/15/2016 ADRIANE MURRAY MD Ot N28.89 OTHER SPECIFIED DISORDERS OF KIDNEY AND 03/15/2016 ADRIANE MURRAY MD Ot R97.2 ELEVATED PROSTATE SPECIFIC ANTIGEN [PSA] 03/15/2016 ADRIANE MURRAY MD Ot Z79.02 HALF-WAY (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 OF 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 03/15/2016 ADRIANE MURRAY MD Ot Z79.899 OTHER HALF-WAY (CURRENT) DRUG THERAPY 03/21/2016 ADRIANE MURRAY MD Ot D64.9 ANEMIA, UNSPECIFIED 03/21/2016 ADRIANE MURRAY MD Ot R97.2 ELEVATED PROSTATE SPECIFIC ANTIGEN [PSA] 03/26/2016 ADRIANE MURRAY MD Ot D64.9 ANEMIA, UNSPECIFIED 03/26/2016 ADRIANE MURRAY MD Ot D72.819 DECREASED WHITE BLOOD CELL COUNT, UNSPEC 03/26/2016 ADRIANE MURRAY MD Ot I25.10 ATHSCL HEART DISEASE OF [place] CORONARY 03/26/2016 ADRIANE MURRAY MD Ot N28.89 OTHER SPECIFIED DISORDERS OF KIDNEY AND 03/26/2016 ADRIANE MURRAY MD Ot R97.2 ELEVATED PROSTATE SPECIFIC ANTIGEN [PSA] 03/26/2016 ADRIANE MURRAY MD Ot 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 03/26/2016 ADRIANE MURRAY MD, Ot 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 03/30/2016 ADRIANE MURRAY MD, Ot D64.9 ANEMIA, UNSPECIFIED 03/30/2016 ADRIANE MURRAY MD Ot I25.10 ATHSCL HEART DISEASE OF [place] CORONARY 03/30/2016 ADRIANE MURRAY MD Ot N28.89 OTHER SPECIFIED DISORDERS OF KIDNEY AND 03/30/2016 ADRIANE MURRAY MD Ot R97.2 ELEVATED PROSTATE SPECIFIC ANTIGEN [PSA] 03/30/2016 ADRIANE MURRAY MD Ot Z79.02 HALF-WAY (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 OF 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 03/30/2016 ADRIANE MURRAY MD Ot Z79.899 OTHER HALF-WAY (CURRENT) DRUG THERAPY 06/07/2016 ADRIANE MURRAY MD Ot D64.9 ANEMIA, UNSPECIFIED 06/07/2016 ADRIANE MURRAY MD Ot I25.10 ATHSCL HEART DISEASE OF [place] CORONARY 06/07/2016 ADRIANE MURRAY MD Ot N28.89 OTHER SPECIFIED DISORDERS OF KIDNEY AND 06/07/2016 ADRIANE MURRAY MD Ot R97.20 ELEVATED PROSTATE SPECIFIC ANTIGEN [PSA] 06/07/2016 ADRIANE MURRAY MD Ot 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 06/07/2016 ADRIANE MURRAY MD Ot Z79.899 OTHER HALF-WAY (CURRENT) DRUG THERAPY 06/20/2016 ADRIANE MURRAY MD Ot D64.9 ANEMIA, UNSPECIFIED 06/20/2016 ADRIANE MURRAY MD Ot I25.10 ATHSCL HEART DISEASE OF [place] CORONARY 06/20/2016 ADRIANE MURRAY MD Ot N28.89 OTHER SPECIFIED DISORDERS OF KIDNEY AND 06/20/2016 ADRIANE MURRAY MD Ot R97.20 ELEVATED PROSTATE SPECIFIC ANTIGEN [PSA] 06/20/2016 ADRIANE MURRAY MD, Ot 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 06/20/2016 ADRIANE MURRAY MD, Ot Z79.899 OTHER HALF-WAY (CURRENT) DRUG THERAPY 06/27/2016 ADRIANE MURRAY MD, Ot D64.9 ANEMIA, UNSPECIFIED 06/27/2016 ADRIANE MURRAY MD Ot I25.10 ATHSCL HEART DISEASE OF [place] CORONARY 06/27/2016 ADRIANE MURRAY MD, Ot N28.89 OTHER SPECIFIED DISORDERS OF KIDNEY AND 06/27/2016 ADRIANE MURRAY MD, Ot R97.20 ELEVATED PROSTATE SPECIFIC ANTIGEN [PSA] 06/27/2016 ADRIANE MURRAY MD, Ot Z79.02 HALF-WAY (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 OF 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 06/27/2016 ADRIANE MURRAY MD Ot 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 06/28/2016 ADRIANE MURRAY MD, Ot D64.9 ANEMIA, UNSPECIFIED 06/28/2016 ADRIANE MURRAY MD Ot I25.10 ATHSCL HEART DISEASE OF [place] CORONARY 06/28/2016 ADRIANE MURRAY MD Ot N28.89 OTHER SPECIFIED DISORDERS OF KIDNEY AND 06/28/2016 ADRIANE MURRAY MD Ot R97.20 ELEVATED PROSTATE SPECIFIC ANTIGEN [PSA] 06/28/2016 ADRIANE MURRAY MD, Ot Z79.02 HALF-WAY (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 OF 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 06/28/2016 ADRIANE MURRAY MD Ot 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 07/13/2016 Ot 285.9 ANEMIA NOS 07/13/2016 Ot 531.90 STOMACH ULCER NOS 07/13/2016 Ot 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 07/13/2016 Ot 401.9 HYPERTENSION NOS 07/13/2016 Ot 414.01 CORONARY ATHEROSCLEROSIS OF [place] CORON 07/13/2016 Ot 780.79 OTH MALAISE FATIGUE 07/13/2016 Ot V58.63 LONG-TERM( CURRENT)USE OF ANTIPLATELET/AN 07/13/2016 Ot V58.69 OTH MED,LT, CURRENT USE 07/13/2016 NATALIE ANN Ot 414.01 CORONARY ATHEROSCLEROSIS OF [place] CORON 07/13/2016 NATALIE ANN Ot 443.9 PERIPH VASCULAR DIS NOS 07/13/2016 NATALIE ANN Ot 729.5 PAIN IN LIMB 07/13/2016 NATALIE ANNP Ot 780.79 OTH MALAISE FATIGUE 07/13/2016 MICHAEL MORALES MD Ot 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 07/13/2016 MICHAEL MORALES MD Ot 440.8 ATHEROSCLEROSIS NEC 07/13/2016 MICHAEL MORALES MD Ot 593.9 RENAL URETERAL DIS NOS 07/13/2016 NATALIE ANN Ot 414.00 CORON ATHEROSCLER NOS TYPE VESSEL, NATIV 07/13/2016 NATALIE ANN Ot 780.4 DIZZINESS AND GIDDINESS 07/13/2016 NATALIE ANN Ot 780.79 OTH MALAISE FATIGUE 07/13/2016 NATALIE ANNP Ot 786.05 SHORTNESS OF BREATH 07/13/2016 NATALIE ANN Ot 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 07/13/2016 PETRA MARIN MD Ot D64.9 ANEMIA, UNSPECIFIED 07/13/2016 PETRA MARIN MD Ot I10 ESSENTIAL (PRIMARY) HYPERTENSION 07/13/2016 PETRA MARIN MD Ot I48.91 UNSPECIFIED ATRIAL FIBRILLATION 07/13/2016 SOFY BARNARD, ELODIA Cohn Ot D64.9 ANEMIA, UNSPECIFIED 07/13/2016 SOFY BARNARD, ELODIA Cohn Ot Z01.818 ENCOUNTER FOR OTHER PREPROCEDURAL EXAMIN 07/13/2016 SOFY BARNARD, ELODIA Cohn Ot Z12.11 ENCOUNTER FOR SCREENING FOR MALIGNANT NE 07/13/2016 RIGO JARQUIN Ot I73.9 PERIPHERAL VASCULAR DISEASE, UNSPECIFIED 07/13/2016 Ot 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 07/13/2016 Ot 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 07/13/2016 PETRA MARIN MD Ot D64.9 ANEMIA, UNSPECIFIED 07/13/2016 PETRA MARIN MD Ot I25.10 ATHSCL HEART DISEASE OF [place] CORONARY 07/13/2016 PETRA MARIN MD Ot N18.9 CHRONIC KIDNEY DISEASE, UNSPECIFIED 07/13/2016 PETRA MARIN MD Ot R06.00 DYSPNEA, UNSPECIFIED 07/13/2016 ADRIANE MURRAY MD Ot D64.9 ANEMIA, UNSPECIFIED 07/13/2016 ADRIANE MURRAY MD Ot R97.2 ELEVATED PROSTATE SPECIFIC ANTIGEN [PSA] 07/13/2016 ADRIANE MURRAY MD Ot D64.9 ANEMIA, UNSPECIFIED 07/13/2016 ADRIANE MURRAY MD Ot I25.10 ATHSCL HEART DISEASE OF [place] CORONARY 07/13/2016 ADRIANE MURRAY MD Ot N28.89 OTHER SPECIFIED DISORDERS OF KIDNEY AND 07/13/2016 ADRIANE MURRAY MD Ot R97.20 ELEVATED PROSTATE SPECIFIC ANTIGEN [PSA] 07/13/2016 ADRIANE MURRAY MD Ot 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 07/13/2016 ADRIANE MURRAY MD Ot Z79.899 OTHER HALF-WAY (CURRENT) DRUG THERAPY 07/13/2016 Ot 285.9 ANEMIA NOS 07/13/2016 Ot 531.90 STOMACH ULCER NOS 07/13/2016 Ot 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 07/13/2016 Ot 401.9 HYPERTENSION NOS 07/13/2016 Ot 414.01 CORONARY ATHEROSCLEROSIS OF [place] CORON 07/13/2016 Ot 780.79 OTH MALAISE FATIGUE 07/13/2016 Ot V58.63 LONG-TERM( CURRENT)USE OF ANTIPLATELET/AN 07/13/2016 Ot V58.69 OTH MED,LT, CURRENT USE 07/13/2016 NATALIE ANN Ot 414.01 CORONARY ATHEROSCLEROSIS OF [place] CORON 07/13/2016 NATALIE ANN Ot 443.9 PERIPH VASCULAR DIS NOS 07/13/2016 NATALIE ANN Ot 729.5 PAIN IN LIMB 07/13/2016 NATALIE ANN Ot 780.79 OTH MALAISE FATIGUE 07/13/2016 CARMEN BARNARD, MICHAEL Griggs Ot 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 07/13/2016 CARMEN BARNARD, MICHAEL Griggs Ot 440.8 ATHEROSCLEROSIS NEC 07/13/2016 CARMEN BARNARD, MICHAEL Griggs Ot 593.9 RENAL URETERAL DIS NOS 07/13/2016 NATALIE ANN GROUND WATER 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 Ot 414.00 CORON ATHEROSCLER NOS TYPE VESSEL, NATIV 07/13/2016 NATALIE ANN GROUND WATER 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 Ot 780.4 DIZZINESS AND GIDDINESS 07/13/2016 NATALIE ANN GROUND WATER 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 Ot 780.79 OTH MALAISE FATIGUE 07/13/2016 NATALIE ANN GROUND WATER 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 Ot 786.05 SHORTNESS OF BREATH 07/13/2016 NATALIE ANN GROUND WATER 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 Ot 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 07/13/2016 PETRA MARIN MD Ot D64.9 ANEMIA, UNSPECIFIED 07/13/2016 PETRA MARIN MD Ot I10 ESSENTIAL (PRIMARY) HYPERTENSION 07/13/2016 PETRA MARIN MD Ot I48.91 UNSPECIFIED ATRIAL FIBRILLATION 07/13/2016 SOFY BARNARD, ELODIA Cohn Ot D64.9 ANEMIA, UNSPECIFIED 07/13/2016 SOFY BARNARD, ELODIA Cohn Ot Z01.818 ENCOUNTER FOR OTHER PREPROCEDURAL EXAMIN 07/13/2016 ELODIA GOETZ MD Ot Z12.11 ENCOUNTER FOR SCREENING FOR MALIGNANT NE 07/13/2016 RIGO JARQUIN R Ot I73.9 PERIPHERAL VASCULAR DISEASE, UNSPECIFIED 07/13/2016 Ot 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 07/13/2016 Ot 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 07/13/2016 PETRA MARIN MD Ot D64.9 ANEMIA, UNSPECIFIED 07/13/2016 PETRA MARIN MD Ot I25.10 ATHSCL HEART DISEASE OF [place] CORONARY 07/13/2016 PETRA MARIN MD Ot N18.9 CHRONIC KIDNEY DISEASE, UNSPECIFIED 07/13/2016 PETRA MARIN MD Ot R06.00 DYSPNEA, UNSPECIFIED 07/13/2016 ADRIANE MURRAY MD Ot D64.9 ANEMIA, UNSPECIFIED 07/13/2016 ADRIANE MURRAY MD Ot R97.2 ELEVATED PROSTATE SPECIFIC ANTIGEN [PSA] 07/13/2016 ADRIANE MURRAY MD Ot D64.9 ANEMIA, UNSPECIFIED 07/13/2016 ADRIANE MURRAY MD Ot I25.10 ATHSCL HEART DISEASE OF [place] CORONARY 07/13/2016 ADRIANE MURRAY MD Ot N28.89 OTHER SPECIFIED DISORDERS OF KIDNEY AND 07/13/2016 ADRIANE MURRAY MD Ot R97.20 ELEVATED PROSTATE SPECIFIC ANTIGEN [PSA] 07/13/2016 ADRIANE MURRAY MD, Ot 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 07/13/2016 ADRIANE MURRAY MD, Ot Z79.899 OTHER HALF-WAY (CURRENT) DRUG THERAPY 07/19/2016 JORDYN MENDOZA MD Ot K57.90 DVRTCLOS OF INTEST, PART UNSP, W/O PERF 07/19/2016 JORDYN MENDOZA MD, Ot N28.9 DISORDER OF KIDNEY AND URETER, UNSPECIFI 08/03/2016 JORDYN MENDOZA MD Ot K57.90 DVRTCLOS OF INTEST, PART UNSP, W/O PERF 08/03/2016 JORDYN MENDOZA MD, Ot N28.9 DISORDER OF KIDNEY AND URETER, UNSPECIFI 08/14/2016 ADRIANE MURRAY MD Ot D64.9 ANEMIA, UNSPECIFIED 08/14/2016 ADRIANE MURRAY MD, Ot I25.10 ATHSCL HEART DISEASE OF [place] CORONARY 08/14/2016 ADRIANE MURRAY MD, Ot N28.89 OTHER SPECIFIED DISORDERS OF KIDNEY AND 08/14/2016 ADRIANE MURRAY MD, Ot R97.20 ELEVATED PROSTATE SPECIFIC ANTIGEN [PSA] 08/14/2016 ADRIANE MURRAY MD, Ot Z79.02 HALF-WAY (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 OF 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 08/14/2016 ADRIANE MURRAY MD, Ot Z79.899 OTHER HALF-WAY (CURRENT) DRUG THERAPY 08/16/2016 JORDYN MENDOZA MD Ot K57.90 DVRTCLOS OF INTEST, PART UNSP, W/O PERF 08/16/2016 JORDYN MENDOZA MD, Ot N28.9 DISORDER OF KIDNEY AND URETER, UNSPECIFI 09/13/2016 ADRIANE MURRAY MD Ot D64.9 ANEMIA, UNSPECIFIED 09/13/2016 ADRIANE MURRAY MD Ot I25.10 ATHSCL HEART DISEASE OF [place] CORONARY 09/13/2016 ADRIANE MURRAY MD Ot N28.89 OTHER SPECIFIED DISORDERS OF KIDNEY AND 09/13/2016 ADRIANE MURRAY MD Ot R97.20 ELEVATED PROSTATE SPECIFIC ANTIGEN [PSA] 09/13/2016 ADRIANE MURRAY MD Ot Z79.02 HALF-WAY (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 OF 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 09/13/2016 ADRIANE MURRAY MD Ot Z79.899 OTHER HALF-WAY (CURRENT) DRUG THERAPY 09/25/2016 ADRIANE MURRAY MD Ot D64.9 ANEMIA, UNSPECIFIED 09/25/2016 ADRIANE MURRAY MD Ot I25.10 ATHSCL HEART DISEASE OF [place] CORONARY 09/25/2016 ADRIANE MURRAY MD Ot N28.89 OTHER SPECIFIED DISORDERS OF KIDNEY AND 09/25/2016 ADRIANE MURRAY MD Ot R97.20 ELEVATED PROSTATE SPECIFIC ANTIGEN [PSA] 09/25/2016 ADRIANE MURRAY MD Ot 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 09/25/2016 ADRIANE MURRAY MD Ot 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 11/11/2016 ADRIANE MURRAY MD Ot D64.9 ANEMIA, UNSPECIFIED 11/11/2016 ADRIANE MURRAY MD Ot I25.10 ATHSCL HEART DISEASE OF [place] CORONARY 11/11/2016 ADRIANE MURRAY MD Ot N28.89 OTHER SPECIFIED DISORDERS OF KIDNEY AND 11/11/2016 ADRIANE MURRAY MD Ot R97.20 ELEVATED PROSTATE SPECIFIC ANTIGEN [PSA] 11/11/2016 ADRIANE MURRAY MD Ot 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 11/11/2016 ADRIANE MURRAY MD Ot 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 11/15/2016 ADRIANE MURRAY MD Ot D64.9 ANEMIA, UNSPECIFIED 11/15/2016 ADRIANE MURRAY MD Ot H90.3 SENSORINEURAL HEARING LOSS, BILATERAL 11/15/2016 ADRIANE MURRAY MD Ot I25.10 ATHSCL HEART DISEASE OF [place] CORONARY 11/15/2016 ADRIANE MURRAY MD Ot I73.9 PERIPHERAL VASCULAR DISEASE, UNSPECIFIED 11/15/2016 ADRIANE MURRAY MD Ot N28.89 OTHER SPECIFIED DISORDERS OF KIDNEY AND 11/15/2016 ADRIANE MURRAY MD Ot R97.20 ELEVATED PROSTATE SPECIFIC ANTIGEN [PSA] 11/15/2016 ADRIANE MURRAY MD Ot Z79.02 HALF-WAY (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 OF 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 11/15/2016 ADRIANE MURRAY MD Ot Z79.899 OTHER HALF-WAY (CURRENT) DRUG THERAPY 11/20/2016 ANDREA PYLE MD, Ot Z53.9 PROCEDURE AND TREATMENT NOT CARRIED OUT, 11/20/2016 MICHAEL MORALES MD Ot D64.9 ANEMIA, UNSPECIFIED 11/20/2016 MICHAEL MORALES MD Ot H90.3 SENSORINEURAL HEARING LOSS, BILATERAL 11/20/2016 MICHAEL MORALES MD P Ot I25.10 ATHSCL HEART DISEASE OF [place] CORONARY 11/20/2016 MICHAEL MORALES MD P Ot N28.89 OTHER SPECIFIED DISORDERS OF KIDNEY AND 11/20/2016 MICHAEL MORALES MD P Ot R97.20 ELEVATED PROSTATE SPECIFIC ANTIGEN [PSA] 2016 ANDREA PYLE MD, Ot Z53.9 PROCEDURE AND TREATMENT NOT CARRIED OUT, 2016 MICHAEL MORALES MD Ot D64.9 ANEMIA, UNSPECIFIED 2016 MICHAEL MORALES MD Ot H90.3 SENSORINEURAL HEARING LOSS, BILATERAL 2016 MICHAEL MORALES MD P Ot I25.10 ATHSCL HEART DISEASE OF [place] CORONARY 2016 MICHAEL MORALES MD P Ot N28.89 OTHER SPECIFIED DISORDERS OF KIDNEY AND 2016 MICHAEL MORALES MD P Ot R97.20 ELEVATED PROSTATE SPECIFIC ANTIGEN [PSA] 2016 ANDREA PYLE MD, Ot Z53.9 PROCEDURE AND TREATMENT NOT CARRIED OUT, 2016 MICHAEL MORALES MD Ot D64.9 ANEMIA, UNSPECIFIED 2016 MICHAEL MORALES MD Ot H90.3 SENSORINEURAL HEARING LOSS, BILATERAL 2016 MICHAEL MORALES MD P Ot I25.10 ATHSCL HEART DISEASE OF [place] CORONARY 2016 MICHAEL MORALES MD P Ot N28.89 OTHER SPECIFIED DISORDERS OF KIDNEY AND 2016 MICHAEL MORALES MD P Ot R97.20 ELEVATED PROSTATE SPECIFIC ANTIGEN [PSA] 2016 ANDREA PYLE MD Ot Z53.9 PROCEDURE AND TREATMENT NOT CARRIED OUT, 2016 MICHAEL MORALES MD Ot D64.9 ANEMIA, UNSPECIFIED 2016 MICHAEL MORALES MD P Ot H90.3 SENSORINEURAL HEARING LOSS, BILATERAL 2016 MICHAEL MORALES MD P Ot I25.10 ATHSCL HEART DISEASE OF [place] CORONARY 2016 MICHAEL MORALES MD Ot N28.89 OTHER SPECIFIED DISORDERS OF KIDNEY AND 2016 MICHAEL MORALES MD Ot R97.20 ELEVATED PROSTATE SPECIFIC ANTIGEN [PSA] 2016 ANDREA PYLE MD Ot Z53.9 PROCEDURE AND TREATMENT NOT CARRIED OUT, 2016 MICHAEL MORALES MD Ot D64.9 ANEMIA, UNSPECIFIED 2016 MICHAEL MORALES MD Ot H90.3 SENSORINEURAL HEARING LOSS, BILATERAL 2016 MICHAEL MORALES MD Ot I25.10 ATHSCL HEART DISEASE OF [place] CORONARY 2016 MICHAEL MORALES MD Ot N28.89 OTHER SPECIFIED DISORDERS OF KIDNEY AND 2016 MICHAEL MORALES MD Ot R97.20 ELEVATED PROSTATE SPECIFIC ANTIGEN [PSA] 12/13/2016 ADRIANE MURRAY MD Ot D64.9 ANEMIA, UNSPECIFIED 12/13/2016 ADRIANE MURRAY MD Ot H90.3 SENSORINEURAL HEARING LOSS, BILATERAL 12/13/2016 ADRIANE MURRAY MD Ot I25.10 ATHSCL HEART DISEASE OF [place] CORONARY 12/13/2016 ADRIANE MURRAY MD Ot I73.9 PERIPHERAL VASCULAR DISEASE, UNSPECIFIED 12/13/2016 ADRIANE MURRAY MD Ot N28.89 OTHER SPECIFIED DISORDERS OF KIDNEY AND 12/13/2016 ADRIANE MURRAY MD Ot R97.20 ELEVATED PROSTATE SPECIFIC ANTIGEN [PSA] 12/13/2016 ADRIANE MURRAY MD Ot 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 12/13/2016 ADRIANE MURRAY MD Ot 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 12/20/2016 ADRIANE MURRAY MD Ot D64.9 ANEMIA, UNSPECIFIED 12/20/2016 ADRIANE MURRAY MD Ot H90.3 SENSORINEURAL HEARING LOSS, BILATERAL 12/20/2016 ADRIANE MURRAY MD Ot I25.10 ATHSCL HEART DISEASE OF [place] CORONARY 12/20/2016 ADRIANE MURRAY MD Ot I73.9 PERIPHERAL VASCULAR DISEASE, UNSPECIFIED 12/20/2016 ADRIANE MURRAY MD Ot N28.89 OTHER SPECIFIED DISORDERS OF KIDNEY AND 12/20/2016 ADRIANE MURRAY MD Ot R97.20 ELEVATED PROSTATE SPECIFIC ANTIGEN [PSA] 12/20/2016 ADRIANE MURRAY MD, Ot Z79.02 HALF-WAY (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 OF 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 12/20/2016 ADRIANE MURRAY MD, Ot Z79.899 OTHER HALF-WAY (CURRENT) DRUG THERAPY 01/11/2017 JORDYN MENDOZA MD Ot I70.0 ATHEROSCLEROSIS OF [place] 01/11/2017 JORDYN MENDOZA MD Ot I70.8 ATHEROSCLEROSIS OF OTHER ARTERIES 01/11/2017 JORDYN MENDOZA MD Ot K57.30 DVRTCLOS OF LG INT W/O PERFORATION OR AB 01/11/2017 JORDYN MENDOZA MD, Ot K62.9 DISEASE OF ANUS AND RECTUM, UNSPECIFIED 01/11/2017 JORDYN MENDOZA MD, Ot N28.1 CYST OF KIDNEY, ACQUIRED 02/04/2017 JORDYN MENDOZA MD Ot I70.0 ATHEROSCLEROSIS OF [place] 02/04/2017 JORDYN MENDOZA MD, Ot I70.8 ATHEROSCLEROSIS OF OTHER ARTERIES 02/04/2017 JORDYN MENDOZA MD, Ot K57.30 DVRTCLOS OF LG INT W/O PERFORATION OR AB 02/04/2017 JORDYN MENDOZA MD Ot K62.9 DISEASE OF ANUS AND RECTUM, UNSPECIFIED 02/04/2017 JORDYN MENDOZA MD, Ot N28.1 CYST OF KIDNEY, ACQUIRED 02/12/2017 ADRIANE MURRAY MD Ot D64.9 ANEMIA, UNSPECIFIED 02/12/2017 ADRIANE MURRAY MD Ot H90.3 SENSORINEURAL HEARING LOSS, BILATERAL 02/12/2017 ADRIANE MURRAY MD Ot I25.10 ATHSCL HEART DISEASE OF [place] CORONARY 02/12/2017 ADRIANE MURRAY MD Ot I73.9 PERIPHERAL VASCULAR DISEASE, UNSPECIFIED 02/12/2017 ADRIANE MURRAY MD Ot N28.89 OTHER SPECIFIED DISORDERS OF KIDNEY AND 02/12/2017 ADRIANE MURRAY MD Ot R97.20 ELEVATED PROSTATE SPECIFIC ANTIGEN [PSA] 02/12/2017 ADRIANE MURRAY MD, Ot Z79.02 HALF-WAY (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 OF 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 02/12/2017 ADRIANE MURRAY MD, Ot Z79.899 OTHER HALF-WAY (CURRENT) DRUG THERAPY 02/13/2017 JORDYN MENDOZA MD Ot I70.0 ATHEROSCLEROSIS OF [place] 02/13/2017 JORDYN MENDOZA MD Ot I70.8 ATHEROSCLEROSIS OF OTHER ARTERIES 02/13/2017 JORDYN MENDOZA MD Ot K57.30 DVRTCLOS OF LG INT W/O PERFORATION OR AB 02/13/2017 JORDYN EMNDOZA MD Ot K62.9 DISEASE OF ANUS AND RECTUM, UNSPECIFIED 02/13/2017 JORDYN MENDOZA MD, Ot N28.1 CYST OF KIDNEY, ACQUIRED 02/15/2017 TUSHAR TAMAYO MD, Ot D64.9 ANEMIA, UNSPECIFIED 02/15/2017 TUSHAR TAMAYO MD Ot H90.3 SENSORINEURAL HEARING LOSS, BILATERAL 02/15/2017 TUSHAR TAMAYO MD Ot I25.10 ATHSCL HEART DISEASE OF [place] CORONARY 02/15/2017 TUSHAR TAMAYO MD Ot I73.9 PERIPHERAL VASCULAR DISEASE, UNSPECIFIED 02/15/2017 TUSHAR TAMAYO MD Ot N28.89 OTHER SPECIFIED DISORDERS OF KIDNEY AND 02/15/2017 TUSHAR TAMAYO MD Ot R97.20 ELEVATED PROSTATE SPECIFIC ANTIGEN [PSA] 02/15/2017 TUSHAR TAMAYO MD Ot Z79.02 HALF-WAY (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 OF 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 02/15/2017 TUSHAR TAMAYO MD Ot 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 02/19/2017 TUSHAR TAMAYO MD Ot D64.9 ANEMIA, UNSPECIFIED 02/19/2017 TUSHAR TAMAYO MD Ot H90.3 SENSORINEURAL HEARING LOSS, BILATERAL 02/19/2017 TUSHAR TAMAYO MD Ot I25.10 ATHSCL HEART DISEASE OF [place] CORONARY 02/19/2017 TUSHAR TAMAYO MD Ot I73.9 PERIPHERAL VASCULAR DISEASE, UNSPECIFIED 02/19/2017 TUSHAR TAMAYO MD Ot N28.89 OTHER SPECIFIED DISORDERS OF KIDNEY AND 02/19/2017 TUSHAR TAMAYO MD Ot R97.20 ELEVATED PROSTATE SPECIFIC ANTIGEN [PSA] 02/19/2017 TUSHAR TAMAYO MD Ot Z79.02 HALF-WAY (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 OF 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 02/19/2017 TUSHAR TAMAYO MD Ot 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 03/15/2017 TUSHAR TAMAYO MD Ot D64.9 ANEMIA, UNSPECIFIED 03/15/2017 TUSHAR TAMAYO MD Ot H90.3 SENSORINEURAL HEARING LOSS, BILATERAL 03/15/2017 TUSHAR TAMAYO MD Ot I25.10 ATHSCL HEART DISEASE OF [place] CORONARY 03/15/2017 TUSHAR TAMAYO MD Ot I73.9 PERIPHERAL VASCULAR DISEASE, UNSPECIFIED 03/15/2017 TUSHAR TAMAYO MD Ot N28.89 OTHER SPECIFIED DISORDERS OF KIDNEY AND 03/15/2017 TUSHAR TAMAYO MD Ot R97.20 ELEVATED PROSTATE SPECIFIC ANTIGEN [PSA] 03/15/2017 TUSHAR TAMAYO MD Ot Z79.02 HALF-WAY (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 OF 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 03/15/2017 TUSHAR TAMAYO MD Ot 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 03/20/2017 TUSHAR TAMAYO MD Ot D64.9 ANEMIA, UNSPECIFIED 03/20/2017 TUSHAR TAMAYO MD Ot H90.3 SENSORINEURAL HEARING LOSS, BILATERAL 03/20/2017 TUSHAR TAMAYO MD Ot I25.10 ATHSCL HEART DISEASE OF [place] CORONARY 03/20/2017 TUSHAR TAMAYO MD Ot I73.9 PERIPHERAL VASCULAR DISEASE, UNSPECIFIED 03/20/2017 TUSHAR TAMAYO MD Ot N28.89 OTHER SPECIFIED DISORDERS OF KIDNEY AND 03/20/2017 TUSHAR TAMAYO MD Ot R97.20 ELEVATED PROSTATE SPECIFIC ANTIGEN [PSA] 03/20/2017 TUSHAR TAMAYO MD Ot Z79.02 HALF-WAY (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 OF 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 03/20/2017 TUSHAR TAMAYO MD Ot Z79.899 OTHER HALF-WAY (CURRENT) DRUG THERAPY 03/23/2017 TUSHAR TAMAYO MD Ot D64.9 ANEMIA, UNSPECIFIED 03/23/2017 TUSHAR TAMAYO MD Ot H90.3 SENSORINEURAL HEARING LOSS, BILATERAL 03/23/2017 TUSHAR TAMAYO MD Ot I25.10 ATHSCL HEART DISEASE OF [place] CORONARY 03/23/2017 TUSHAR TAMAYO MD Ot I73.9 PERIPHERAL VASCULAR DISEASE, UNSPECIFIED 03/23/2017 TUSHAR TAMAYO MD Ot N28.89 OTHER SPECIFIED DISORDERS OF KIDNEY AND 03/23/2017 TUSHAR TAMAYO MD Ot R97.20 ELEVATED PROSTATE SPECIFIC ANTIGEN [PSA] 03/23/2017 TUSHAR TAMAYO MD Ot Z79.02 HALF-WAY (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 OF 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 03/23/2017 TUSHAR TAMAYO MD Ot 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 03/29/2017 TUSHAR TAMAYO MD Ot D64.9 ANEMIA, UNSPECIFIED 03/29/2017 TUSHAR TAMAYO MD Ot H90.3 SENSORINEURAL HEARING LOSS, BILATERAL 03/29/2017 TUSHAR TAMAYO MD Ot I25.10 ATHSCL HEART DISEASE OF [place] CORONARY 03/29/2017 TUSHAR TAMAYO MD Ot I73.9 PERIPHERAL VASCULAR DISEASE, UNSPECIFIED 03/29/2017 TUSHAR TAMAYO MD Ot N28.89 OTHER SPECIFIED DISORDERS OF KIDNEY AND 03/29/2017 TUSHAR TAMAYO MD Ot R97.20 ELEVATED PROSTATE SPECIFIC ANTIGEN [PSA] 03/29/2017 TUSHAR TAMAYO MD Ot 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 03/29/2017 TUSHAR TAMAYO MD Ot 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 04/24/2017 TUSHAR TAMAYO MD Ot D64.9 ANEMIA, UNSPECIFIED 04/24/2017 TUSHAR TAMAYO MD Ot H90.3 SENSORINEURAL HEARING LOSS, BILATERAL 04/24/2017 TUSHAR TAMAYO MD Ot I25.10 ATHSCL HEART DISEASE OF [place] CORONARY 04/24/2017 TUSHAR TAMAYO MD Ot I73.9 PERIPHERAL VASCULAR DISEASE, UNSPECIFIED 04/24/2017 TUSHAR TAMAYO MD Ot N28.89 OTHER SPECIFIED DISORDERS OF KIDNEY AND 04/24/2017 TUSHAR TAMAYO MD Ot R97.20 ELEVATED PROSTATE SPECIFIC ANTIGEN [PSA] 04/24/2017 TUSHAR TAMAYO MD Ot 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 04/24/2017 TUSHAR TAMAYO MD Ot 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 05/17/2017 TUSHAR TAMAYO MD Ot D64.9 ANEMIA, UNSPECIFIED 05/17/2017 TUSHAR TAMAYO MD Ot H90.3 SENSORINEURAL HEARING LOSS, BILATERAL 05/17/2017 TUSHAR TAMAYO MD Ot I25.10 ATHSCL HEART DISEASE OF [place] CORONARY 05/17/2017 TUSHAR TAMAYO MD Ot I73.9 PERIPHERAL VASCULAR DISEASE, UNSPECIFIED 05/17/2017 TUSHAR TAMAYO MD Ot N28.89 OTHER SPECIFIED DISORDERS OF KIDNEY AND 05/17/2017 TUSHAR TAMAYO MD Ot R97.20 ELEVATED PROSTATE SPECIFIC ANTIGEN [PSA] 05/17/2017 TUSHAR TAMAYO MD Ot 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 05/17/2017 TUSHAR TAMAYO MD Ot 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 05/23/2017 TUSHAR TAMAYO MD Ot D64.9 ANEMIA, UNSPECIFIED 05/23/2017 TUSHAR TAMAYO MD Ot H90.3 SENSORINEURAL HEARING LOSS, BILATERAL 05/23/2017 TSUHAR TAMAYO MD Ot I25.10 ATHSCL HEART DISEASE OF [place] CORONARY 05/23/2017 TUSHAR TAMAYO MD Ot I73.9 PERIPHERAL VASCULAR DISEASE, UNSPECIFIED 05/23/2017 TUSHAR TAMAYO MD Ot N28.89 OTHER SPECIFIED DISORDERS OF KIDNEY AND 05/23/2017 TUSHAR TAMAYO MD Ot R97.20 ELEVATED PROSTATE SPECIFIC ANTIGEN [PSA] 05/23/2017 TUSHAR TAMAYO MD Ot 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 05/23/2017 TUSHAR TAMAYO MD Ot Z79.899 OTHER HALF-WAY (CURRENT) DRUG THERAPY 06/10/2017 ENRRIQUE CORONADO MD Ot I65.23 OCCLUSION AND STENOSIS OF [place]ILATERAL [place] 06/26/2017 ENRRIQUE CORONADO MD Ot I65.23 OCCLUSION AND STENOSIS OF [place] 07/22/2017 TUSHAR TAMAYO MD Ot D64.9 ANEMIA, UNSPECIFIED 07/22/2017 TUSHAR TAMAYO MD Ot H90.3 SENSORINEURAL HEARING LOSS, BILATERAL 07/22/2017 TUSHAR TAMAYO MD Ot I25.10 ATHSCL HEART DISEASE OF [place] CORONARY 07/22/2017 TUSHAR TAMAYO MD Ot I73.9 PERIPHERAL VASCULAR DISEASE, UNSPECIFIED 07/22/2017 TUSHAR TAMAYO MD Ot N28.89 OTHER SPECIFIED DISORDERS OF KIDNEY AND 07/22/2017 TUSHAR TAMAYO MD Ot R97.20 ELEVATED PROSTATE SPECIFIC ANTIGEN [PSA] 07/22/2017 TUSHAR TAMAYO MD, Ot 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 07/22/2017 TUSHAR TAMAYO MD Ot 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 08/22/2017 NAJMA PA, RUBA L Ot E04.1 NONTOXIC SINGLE THYROID NODULE 08/22/2017 NAJMA PA, RUBA L Ot I65.23 OCCLUSION AND STENOSIS OF [place]ATERAL [place] 08/22/2017 NAJMA PA, RUBA L Ot 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 08/22/2017 NAJMA PA, RUBA L Ot J32.8 OTHER CHRONIC SINUSITIS 08/22/2017 NAJMA PA, RUBA L Ot E04.1 NONTOXIC SINGLE THYROID NODULE 08/22/2017 NAJMA PA, RUBA L Ot I65.23 OCCLUSION AND STENOSIS OF [place] 08/22/2017 NAJMA PA, RUBA L Ot 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 08/22/2017 NAJMA PA, RUBA L Ot J32.8 OTHER CHRONIC SINUSITIS 08/27/2017 TUSHAR TAMAYO MD Ot D64.9 ANEMIA, UNSPECIFIED 08/27/2017 TUSHAR TAMAYO MD Ot H90.3 SENSORINEURAL HEARING LOSS, BILATERAL 08/27/2017 TUSHAR TAMAYO MD Ot I25.10 ATHSCL HEART DISEASE OF [place] CORONARY 08/27/2017 TUSHAR TAMAYO MD Ot I73.9 PERIPHERAL VASCULAR DISEASE, UNSPECIFIED 08/27/2017 TUSHAR TAMAYO MD Ot N28.89 OTHER SPECIFIED DISORDERS OF KIDNEY AND 08/27/2017 TUSHAR TAMAYO MD Ot R97.20 ELEVATED PROSTATE SPECIFIC ANTIGEN [PSA] 08/27/2017 TUSHAR TAMAYO MD Ot Z79.02 HALF-WAY (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 OF 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 08/27/2017 TUSHAR TAMAYO MD Ot Z79.899 OTHER HALF-WAY (CURRENT) DRUG THERAPY 09/06/2017 BENI FLETCHER PA-C Ot E04.2 NONTOXIC MULTINODULAR GOITER 09/10/2017 NAJMA PA, RUBA L Ot E04.1 NONTOXIC SINGLE THYROID NODULE 09/10/2017 RUBA AVILA Ot I65.23 OCCLUSION AND STENOSIS OF [place] 09/10/2017 RUBA AVILA L Ot 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 09/10/2017 RUBA AVILA Ot J32.8 OTHER CHRONIC SINUSITIS 09/13/2017 TUSHAR TAMAYO MD Ot D64.9 ANEMIA, UNSPECIFIED 09/13/2017 TUSHAR TAMAYO MD Ot H90.3 SENSORINEURAL HEARING LOSS, BILATERAL 09/13/2017 TUSHAR TAMAYO MD Ot I25.10 ATHSCL HEART DISEASE OF [place] CORONARY 09/13/2017 TUSHAR TAMAYO MD Ot I73.9 PERIPHERAL VASCULAR DISEASE, UNSPECIFIED 09/13/2017 TUSHAR TAMAYO MD Ot N28.89 OTHER SPECIFIED DISORDERS OF KIDNEY AND 09/13/2017 TUSHAR TAMAYO MD Ot R97.20 ELEVATED PROSTATE SPECIFIC ANTIGEN [PSA] 09/13/2017 TUSHAR TAMAYO MD Ot Z79.02 HALF-WAY (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 OF 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 09/13/2017 TUSHAR TAMAYO MD Ot Z79.899 OTHER HALF-WAY (CURRENT) DRUG THERAPY 09/18/2017 TUSHAR TAMAYO MD Ot D64.9 ANEMIA, UNSPECIFIED 09/18/2017 TUSHAR TAMAYO MD Ot H90.3 SENSORINEURAL HEARING LOSS, BILATERAL 09/18/2017 TUSHAR TAMAYO MD Ot I25.10 ATHSCL HEART DISEASE OF [place] CORONARY 09/18/2017 TUSHAR TAMAYO MD Ot I73.9 PERIPHERAL VASCULAR DISEASE, UNSPECIFIED 09/18/2017 TUSHAR TAMAYO MD Ot N28.89 OTHER SPECIFIED DISORDERS OF KIDNEY AND 09/18/2017 TUSHAR TAMAYO MD Ot R97.20 ELEVATED PROSTATE SPECIFIC ANTIGEN [PSA] 09/18/2017 TUSHAR TAMAYO MD Ot 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 09/18/2017 TUSHAR TAMAYO MD Ot Z79.899 OTHER HALF-WAY (CURRENT) DRUG THERAPY 09/18/2017 RUBA AVILA Ot E04.1 NONTOXIC SINGLE THYROID NODULE 09/18/2017 RUBA AVILA Ot I65.23 OCCLUSION AND STENOSIS OF [place] 09/18/2017 RUBA AVILA Ot 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 09/18/2017 RUBA AVILA Ot J32.8 OTHER CHRONIC SINUSITIS 09/25/2017 BENI GOSS KRISTAN Ot E04.2 NONTOXIC MULTINODULAR GOITER 10/07/2017 Ot 285.9 ANEMIA NOS 10/07/2017 Ot 531.90 STOMACH ULCER NOS 10/07/2017 Ot 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 10/07/2017 NATALIE ANNP Ot 414.01 CORONARY ATHEROSCLEROSIS OF [place] CORON 10/07/2017 NATALIE ANN Ot 443.9 PERIPH VASCULAR DIS NOS 10/07/2017 NATALIE ANN Ot 729.5 PAIN IN LIMB 10/07/2017 NATALIE ANNP Ot 780.79 OTH MALAISE FATIGUE 10/07/2017 MICHAEL MORALES MD Ot 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 10/07/2017 MICHAEL MORALES MD Ot 440.8 ATHEROSCLEROSIS NEC 10/07/2017 MICHAEL MORALES MD Ot 593.9 RENAL URETERAL DIS NOS 10/07/2017 NATALIE ANN Ot 414.00 CORON ATHEROSCLER NOS TYPE VESSEL, NATIV 10/07/2017 NATALIE ANN Ot 780.4 DIZZINESS AND GIDDINESS 10/07/2017 NATALIE ANN Ot 780.79 OTH MALAISE FATIGUE 10/07/2017 NATALIE ANNP Ot 786.05 SHORTNESS OF BREATH 10/07/2017 NATALIE ANN Ot 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 10/07/2017 PETRA MARIN MD Ot D64.9 ANEMIA, UNSPECIFIED 10/07/2017 PETRA MARIN MD Ot I10 ESSENTIAL (PRIMARY) HYPERTENSION 10/07/2017 PETRA MARIN MD Ot I48.91 UNSPECIFIED ATRIAL FIBRILLATION 10/07/2017 ELODIA GOETZ MD Ot D64.9 ANEMIA, UNSPECIFIED 10/07/2017 ELODIA GOETZ MD Ot Z01.818 ENCOUNTER FOR OTHER PREPROCEDURAL EXAMIN 10/07/2017 SOFY BARNARD, ELODIA Cohn Ot Z12.11 ENCOUNTER FOR SCREENING FOR MALIGNANT NE 10/07/2017 ZEESHAN GONZÁLES, RIGO R Ot I73.9 PERIPHERAL VASCULAR DISEASE, UNSPECIFIED 10/07/2017 Ot 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 10/07/2017 Ot 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 10/07/2017 PETRA MARIN MD Ot D64.9 ANEMIA, UNSPECIFIED 10/07/2017 PETRA MARIN MD Ot I25.10 ATHSCL HEART DISEASE OF [place] CORONARY 10/07/2017 PETRA MARIN MD Ot N18.9 CHRONIC KIDNEY DISEASE, UNSPECIFIED 10/07/2017 PETRA MARIN MD Ot R06.00 DYSPNEA, UNSPECIFIED 10/07/2017 ADRIANE MURRAY MD Ot D64.9 ANEMIA, UNSPECIFIED 10/07/2017 ADRIANE MURRAY MD Ot R97.2 ELEVATED PROSTATE SPECIFIC ANTIGEN [PSA] 10/07/2017 JORDYN MENDOZA MD Ot K57.90 DVRTCLOS OF INTEST, PART UNSP, W/O PERF 10/07/2017 JORDYN MENDOZA MD Ot N28.9 DISORDER OF KIDNEY AND URETER, UNSPECIFI 10/07/2017 ANDREA PYLE MD Ot Z53.9 PROCEDURE AND TREATMENT NOT CARRIED OUT, 10/07/2017 MICHAEL MORALES MD Ot D64.9 ANEMIA, UNSPECIFIED 10/07/2017 MICHAEL MORALES MD Ot H90.3 SENSORINEURAL HEARING LOSS, BILATERAL 10/07/2017 MICHAEL MORALES MD Ot I25.10 ATHSCL HEART DISEASE OF [place] CORONARY 10/07/2017 MICHAEL MORALES MD Ot N28.89 OTHER SPECIFIED DISORDERS OF KIDNEY AND 10/07/2017 MICHAEL MORALES MD Ot R97.20 ELEVATED PROSTATE SPECIFIC ANTIGEN [PSA] 10/07/2017 JORDYN MENDOZA MD Ot I70.0 ATHEROSCLEROSIS OF [place] 10/07/2017 JORDYN MENDOZA MD Ot I70.8 ATHEROSCLEROSIS OF OTHER ARTERIES 10/07/2017 JORDYN MENDOZA MD Ot K57.30 DVRTCLOS OF LG INT W/O PERFORATION OR AB 10/07/2017 KAL MENDOZA MDAS A Ot K62.9 DISEASE OF ANUS AND RECTUM, UNSPECIFIED 10/07/2017 KELLY BARNARD, JORDYN Watts Ot N28.1 CYST OF KIDNEY, ACQUIRED 10/07/2017 CLIFF BARNARD, ENRRIQUE Montaño Ot I65.23 OCCLUSION AND STENOSIS OF [place] 10/07/2017 RUBA AVILA Ot E04.1 NONTOXIC SINGLE THYROID NODULE 10/07/2017 RUBA AVILA Ot I65.23 OCCLUSION AND STENOSIS OF [place] 10/07/2017 ARNOLDO AVILAE L Ot 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 10/07/2017 ARNOLDO AVILAE L Ot J32.8 OTHER CHRONIC SINUSITIS 10/07/2017 TUSHAR TAMAYO MD Ot D64.9 ANEMIA, UNSPECIFIED 10/07/2017 TUSHAR TAMAYO MD Ot H90.3 SENSORINEURAL HEARING LOSS, BILATERAL 10/07/2017 TUSHAR TAMAYO MD Ot I25.10 ATHSCL HEART DISEASE OF [place] CORONARY 10/07/2017 TUSHAR TAMAYO MD Ot I73.9 PERIPHERAL VASCULAR DISEASE, UNSPECIFIED 10/07/2017 TUSHAR TAMAYO MD Ot N28.89 OTHER SPECIFIED DISORDERS OF KIDNEY AND 10/07/2017 TUSHAR TAMAYO MD Ot R97.20 ELEVATED PROSTATE SPECIFIC ANTIGEN [PSA] 10/07/2017 TUSHAR TAMAYO MD Ot Z79.02 HALF-WAY (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 OF 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 10/07/2017 TUSHAR TAMAYO MD Ot 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 10/07/2017 BENI FLETCHER PA-C Ot E04.2 NONTOXIC MULTINODULAR GOITER 11/11/2017 TUSHAR TAMAYO MD Ot D64.9 ANEMIA, UNSPECIFIED 11/11/2017 TUSHAR TAMAYO MD Ot H90.3 SENSORINEURAL HEARING LOSS, BILATERAL 11/11/2017 TUSHAR TAMAYO MD Ot I25.10 ATHSCL HEART DISEASE OF [place] CORONARY 11/11/2017 TUSHAR TAMAYO MD Ot I73.9 PERIPHERAL VASCULAR DISEASE, UNSPECIFIED 11/11/2017 TUSHAR TAMAYO MD Ot N28.89 OTHER SPECIFIED DISORDERS OF KIDNEY AND 11/11/2017 TUSHAR TAMAYO MD Ot R97.20 ELEVATED PROSTATE SPECIFIC ANTIGEN [PSA] 11/11/2017 TUSHAR TAMAYO MD Ot Z79.02 HALF-WAY (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 OF 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 11/11/2017 TUSHAR TAMAYO MD Ot Z79.899 OTHER HALF-WAY (CURRENT) DRUG THERAPY 11/12/2017 TUSHAR TAMAYO MD Ot D64.9 ANEMIA, UNSPECIFIED 11/12/2017 TUSHAR TAMAYO MD Ot H90.3 SENSORINEURAL HEARING LOSS, BILATERAL 11/12/2017 TUSHAR TAMAYO MD Ot I25.10 ATHSCL HEART DISEASE OF [place] CORONARY 11/12/2017 TUSHAR TAMAYO MD Ot I73.9 PERIPHERAL VASCULAR DISEASE, UNSPECIFIED 11/12/2017 TUSHAR TAMAYO MD Ot N28.89 OTHER SPECIFIED DISORDERS OF KIDNEY AND 11/12/2017 TUSHAR TAMAYO MD Ot R97.20 ELEVATED PROSTATE SPECIFIC ANTIGEN [PSA] 11/12/2017 TUSHAR TAMAYO MD Ot Z79.02 HALF-WAY (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 OF 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 11/12/2017 TUSHAR TAMAYO MD Ot Z79.899 OTHER HALF-WAY (CURRENT) DRUG THERAPY 12/18/2017 RUBA AVILA Ot E04.1 NONTOXIC SINGLE THYROID NODULE 12/18/2017 RUBA AVILA Ot I65.23 OCCLUSION AND STENOSIS OF [place]ATER[place] 12/18/2017 RUBA AVILA Ot 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 12/18/2017 RUBA AVILA Ot J32.8 OTHER CHRONIC SINUSITIS 12/31/2017 TUSHAR TMAAYO MD Ot D53.9 NUTRITIONAL ANEMIA, UNSPECIFIED 12/31/2017 TUSHAR TAMAYO MD Ot Z79.899 OTHER HALF-WAY (CURRENT) DRUG THERAPY 12/31/2017 Ot 285.9 ANEMIA NOS 12/31/2017 Ot 531.90 STOMACH ULCER NOS 12/31/2017 Ot 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 12/31/2017 NATALIE ANN Ot 414.01 CORONARY ATHEROSCLEROSIS OF [place] CORON 12/31/2017 NATALIE ANN Ot 443.9 PERIPH VASCULAR DIS NOS 12/31/2017 NATALIE ANN 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 WATER 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 Ot 729.5 PAIN IN LIMB 12/31/2017 NATALIE ANN GROUND [employer] 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 Ot 780.79 OTH MALAISE FATIGUE 12/31/2017 CARMEN BARNARD, MICHAEL Griggs Ot 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 12/31/2017 CARMEN BARNARD, MICHAEL Griggs Ot 440.8 ATHEROSCLEROSIS NEC 12/31/2017 MICHAEL MORALES MD Ot 593.9 RENAL URETERAL DIS NOS 12/31/2017 NATALIE ANN GROUND W[employer] 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 Ot 414.00 CORON ATHEROSCLER NOS TYPE VESSEL, NATIV 12/31/2017 NATALIE ANN GROUND W[employer] 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 Ot 780.4 DIZZINESS AND GIDDINESS 12/31/2017 NATALIE ANNP Ot 780.79 OTH MALAISE FATIGUE 12/31/2017 NATALIE ANNP Ot 786.05 SHORTNESS OF BREATH 12/31/2017 NATALIE ANNP Ot 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 12/31/2017 PETRA MARIN MD Ot D64.9 ANEMIA, UNSPECIFIED 12/31/2017 PETRA MARIN MD Ot I10 ESSENTIAL (PRIMARY) HYPERTENSION 12/31/2017 PETRA MARIN MD Ot I48.91 UNSPECIFIED ATRIAL FIBRILLATION 12/31/2017 ELODIA GOETZ MD Ot D64.9 ANEMIA, UNSPECIFIED 12/31/2017 ELODIA GOETZ MD Ot Z01.818 ENCOUNTER FOR OTHER PREPROCEDURAL EXAMIN 12/31/2017 ELODIA GOETZ MD Ot Z12.11 ENCOUNTER FOR SCREENING FOR MALIGNANT NE 12/31/2017 RIGO JARQUIN Ot I73.9 PERIPHERAL VASCULAR DISEASE, UNSPECIFIED 12/31/2017 Ot 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 12/31/2017 Ot 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 12/31/2017 PETRA MARIN MD Ot D64.9 ANEMIA, UNSPECIFIED 12/31/2017 PETRA MARIN MD Ot I25.10 ATHSCL HEART DISEASE OF [place] CORONARY 12/31/2017 PETRA MARIN MD Ot N18.9 CHRONIC KIDNEY DISEASE, UNSPECIFIED 12/31/2017 PETRA MARIN MD Ot R06.00 DYSPNEA, UNSPECIFIED 12/31/2017 TERRI BARNARD, ADRIANE Mccurdy Ot D64.9 ANEMIA, UNSPECIFIED 12/31/2017 TERRI BARNARD, ADRIANE Mccurdy Ot R97.2 ELEVATED PROSTATE SPECIFIC ANTIGEN [PSA] 12/31/2017 JORDYN MENDOZA MD Ot K57.90 DVRTCLOS OF INTEST, PART UNSP, W/O PERF 12/31/2017 JORDYN MENDOZA MD Ot N28.9 DISORDER OF KIDNEY AND URETER, UNSPECIFI 12/31/2017 LASHANDA BARNARD, ANDREA Watts Ot Z53.9 PROCEDURE AND TREATMENT NOT CARRIED OUT, 12/31/2017 CARMEN BARNARD, MICHAEL Griggs Ot D64.9 ANEMIA, UNSPECIFIED 12/31/2017 MICHAEL MORALES MD Ot H90.3 SENSORINEURAL HEARING LOSS, BILATERAL 12/31/2017 MICHAEL MORALES MD Ot I25.10 ATHSCL HEART DISEASE OF [place] CORONARY 12/31/2017 MICHAEL MORALES MD Ot N28.89 OTHER SPECIFIED DISORDERS OF KIDNEY AND 12/31/2017 MICHAEL MORALES MD Ot R97.20 ELEVATED PROSTATE SPECIFIC ANTIGEN [PSA] 12/31/2017 JORDYN MENDOZA MD Ot I70.0 ATHEROSCLEROSIS OF [place] 12/31/2017 JORDYN MENDOZA MD Ot I70.8 ATHEROSCLEROSIS OF OTHER ARTERIES 12/31/2017 JORDYN MENDOZA MD Ot K57.30 DVRTCLOS OF LG INT W/O PERFORATION OR AB 12/31/2017 JORDYN MENDOZA MD Ot K62.9 DISEASE OF ANUS AND RECTUM, UNSPECIFIED 12/31/2017 JORDYN MENDOZA MD Ot N28.1 CYST OF KIDNEY, ACQUIRED 12/31/2017 CLIFF BARNARD, ENRRIQUE Montaño Ot I65.23 OCCLUSION AND STENOSIS OF [place]ILATERAL [place] 12/31/2017 RUBA AVILA Ot E04.1 NONTOXIC SINGLE THYROID NODULE 12/31/2017 RUBA AVILA Ot I65.23 OCCLUSION AND STENOSIS OF [place] 12/31/2017 RUBA AVILA Ot 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 12/31/2017 RUBA AVILA Ot J32.8 OTHER CHRONIC SINUSITIS 12/31/2017 BENI FLETCHER PA-C Ot E04.2 NONTOXIC MULTINODULAR GOITER 12/31/2017 TUSHAR TAMAYO MD Ot D53.9 NUTRITIONAL ANEMIA, UNSPECIFIED 12/31/2017 TUSHAR TAMAYO MD Ot Z79.899 OTHER HALF-WAY (CURRENT) DRUG THERAPY 01/01/2018 TUSHAR TAMAYO MD, Ot D53.9 NUTRITIONAL ANEMIA, UNSPECIFIED 01/01/2018 TUSHAR TAMAYO MD, Ot 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 01/06/2018 CLIFF BARNARD, ENRRIQUE Montaño Ot I65.23 OCCLUSION AND STENOSIS OF [place]ILATERAL [place] 02/11/2018 TUSHAR TAMAYO MD Ot D53.9 NUTRITIONAL ANEMIA, UNSPECIFIED 02/11/2018 TUSHAR TAMAYO MD Ot 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 02/21/2018 TUSHAR TAMAYO MD Ot D53.9 NUTRITIONAL ANEMIA, UNSPECIFIED 02/21/2018 TUSHAR TAMAYO MD Ot Z79.899 OTHER HALF-WAY (CURRENT) DRUG THERAPY 03/25/2018 TUSHAR TAMAYO MD Ot D53.9 NUTRITIONAL ANEMIA, UNSPECIFIED 03/25/2018 TUSHAR TAMAYO MD Ot 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 05/19/2018 TUSHAR TAMAYO MD Ot D53.9 NUTRITIONAL ANEMIA, UNSPECIFIED 05/19/2018 TUSHAR TAMAYO MD Ot 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 06/23/2018 TUSHAR TAMAYO MD Ot D53.9 NUTRITIONAL ANEMIA, UNSPECIFIED 06/23/2018 TUSHAR TAMAYO MD Ot 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 06/26/2018 TUSHAR TAMAYO MD Ot D53.9 NUTRITIONAL ANEMIA, UNSPECIFIED 06/26/2018 TUSHAR TAMAYO MD Ot Z79.899 OTHER HALF-WAY (CURRENT) DRUG THERAPY 07/16/2018 TUSHAR TAMAYO MD Ot D53.9 NUTRITIONAL ANEMIA, UNSPECIFIED 07/16/2018 TUSHAR TAMAYO MD Ot 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 08/15/2018 TUSHAR TAMAYO MD Ot D53.9 NUTRITIONAL ANEMIA, UNSPECIFIED 08/15/2018 TUSHAR TAMAYO MD Z79.899 OTHER HALF-WAY (CURRENT) DRUG THERAPY Procedures There is no data. Results Test Result Range Automated blood complete blood count (hemogram) panel - 01/26/16 12:50 Blood leukocytes automated count (number/volume) 4.1 10*3/uL 4.3-11.0 Blood erythrocytes automated count (number/volume) 2.39 10*6/uL 4.35-5.85 Venous blood hemoglobin measurement (mass/volume) 5.8 g/dL 13.3-17.7 Blood hematocrit (volume fraction) 21 % 40-54 Automated erythrocyte mean corpuscular volume 87 [foz_us] 80-99 Automated erythrocyte mean corpuscular hemoglobin (mass per erythrocyte) 24 pg 25-34 Automated erythrocyte mean corpuscular hemoglobin concentration measurement ( mass/volume) 28 g/dL 32-36 Automated erythrocyte distribution width ratio 17.2 % 10.0-14.5 Automated blood platelet count (count/volume) 199 10*3/uL 130-400 Automated blood platelet mean volume measurement 10.0 [foz_us] 7.4-10.4 RED CELLS LEUKO REDUCED AS1 - 01/26/16 12:50 RED CELLS LEUKO REDUCED AS1 TRANSFUSED 01/26/16 [id number] NR Blood type T Indirect antibody screen panel - 01/26/16 12:50 ABO+Rh group OP NRG Transfusion band number [id number] Blood group antibody screen NEGATIVE NRG Prostate specific ag [mass/volume] in serum or plasma - 11/14/16 15:04 Prostate specific ag [mass/volume] in serum or plasma 12.97 % 0.00-4.00 Whole blood basic metabolic panel - 06/04/17 10:00 Serum or plasma sodium measurement (moles/volume) 140 mmol/L 135-145 Serum or plasma potassium measurement (moles/volume) 4.7 mmol/L 3.6-5.0 Serum or plasma chloride measurement (moles/volume) 109 mmol/L 98-107 Carbon dioxide 22 mmol/L 21-32 Serum or plasma anion gap determination (moles/volume) 9 mmol/L 5-14 Serum or plasma urea nitrogen measurement (mass/volume) 27 mg/dL 7-18 Serum or plasma creatinine measurement (mass/volume) 1.49 mg/dL 0.60-1.30 Serum or plasma urea nitrogen/creatinine mass ratio 18 NRG Serum or plasma creatinine measurement with calculation of estimated glomerular filtration rate 45 NRG Serum or plasma glucose measurement (mass/volume) 103 mg/dL 70-105 Serum or plasma calcium measurement (mass/volume) 8.7 mg/dL 8.5-10.1 Whole blood basic metabolic panel - 08/21/17 11:40 Serum or plasma sodium measurement (moles/volume) 138 mmol/L 135-145 Serum or plasma potassium measurement (moles/volume) 4.9 mmol/L 3.6-5.0 Serum or plasma chloride measurement (moles/volume) 107 mmol/L 98-107 Carbon dioxide 22 mmol/L 21-32 Serum or plasma anion gap determination (moles/volume) 9 mmol/L 5-14 Serum or plasma urea nitrogen measurement (mass/volume) 22 mg/dL 7-18 Serum or plasma creatinine measurement (mass/volume) 1.25 mg/dL 0.60-1.30 Serum or plasma urea nitrogen/creatinine mass ratio 18 NRG Serum or plasma creatinine measurement with calculation of estimated glomerular filtration rate 55 NRG Serum or plasma glucose measurement (mass/volume) 100 mg/dL 70-105 Serum or plasma calcium measurement (mass/volume) 9.2 mg/dL 8.5-10.1 Complete blood count (CBC) with automated white blood cell (WBC) differential - 10/08/17 10:58 Blood leukocytes automated count (number/volume) 3.7 10*3/uL 4.3-11.0 Blood erythrocytes automated count (number/volume) 3.08 10*6/uL 4.35-5.85 Venous blood hemoglobin measurement (mass/volume) 10.4 g/dL 13.3-17.7 Blood hematocrit (volume fraction) 33 % 40-54 Automated erythrocyte mean corpuscular volume 106 [foz_us] 80-99 Automated erythrocyte mean corpuscular hemoglobin (mass per erythrocyte) 34 pg 25-34 Automated erythrocyte mean corpuscular hemoglobin concentration measurement ( mass/volume) 32 g/dL 32-36 Automated erythrocyte distribution width ratio 14.2 % 10.0-14.5 Automated blood platelet count (count/volume) 144 10*3/uL 130-400 Automated blood platelet mean volume measurement 9.7 [foz_us] 7.4-10.4 Automated blood neutrophils/100 leukocytes 63 % 42-75 Automated blood lymphocytes/100 leukocytes 26 % 12-44 Blood monocytes/100 leukocytes 8 % 0-12 Automated blood eosinophils/100 leukocytes 2 % 0-10 Automated blood basophils/100 leukocytes 1 % 0-10 Blood neutrophils automated count (number/volume) 2.4 10*3 1.8-7.8 Blood lymphocytes automated count (number/volume) 1.0 10*3 1.0-4.0 Blood monocytes automated count (number/volume) 0.3 10*3 0.0-1.0 Automated eosinophil count 0.1 10*3/uL 0.0-0.3 Automated blood basophil count (count/volume) 0.0 10*3/uL 0.0-0.1 Comprehensive metabolic panel - 10/08/17 10:58 Serum or plasma sodium measurement (moles/volume) 139 mmol/L 135-145 Serum or plasma potassium measurement (moles/volume) 4.4 mmol/L 3.6-5.0 Serum or plasma chloride measurement (moles/volume) 108 mmol/L 98-107 Carbon dioxide 25 mmol/L 21-32 Serum or plasma anion gap determination (moles/volume) 6 mmol/L 5-14 Serum or plasma urea nitrogen measurement (mass/volume) 28 mg/dL 7-18 Serum or plasma creatinine measurement (mass/volume) 1.45 mg/dL 0.60-1.30 Serum or plasma urea nitrogen/creatinine mass ratio 19 NRG Serum or plasma creatinine measurement with calculation of estimated glomerular filtration rate 46 NRG Serum or plasma glucose measurement (mass/volume) 130 mg/dL 70-105 Serum or plasma calcium measurement (mass/volume) 9.0 mg/dL 8.5-10.1 Serum or plasma total bilirubin measurement (mass/volume) 0.4 mg/dL 0.1-1.0 Serum or plasma alkaline phosphatase measurement (enzymatic activity/volume) 103 U/L 40-136 Serum or plasma aspartate aminotransferase measurement (enzymatic activity/ volume) 23 U/L 5-34 Serum or plasma alanine aminotransferase measurement (enzymatic activity/volume ) 16 U/L 0-55 Serum or plasma protein measurement (mass/volume) 6.7 g/dL 6.4-8.2 Serum or plasma albumin measurement (mass/volume) 3.7 g/dL 3.2-4.5 Serum iron and total iron binding capacity panel - 10/08/17 10:58 Serum or plasma iron measurement (mass/volume) 56 % 40- 180 Total iron binding capacity and transferrin saturation measurement 20 % 15-50 Iron binding capacity [mass/volume] in serum or plasma 285 % 280-380 UIBC (unsaturated iron binding capacity) 229 % 55-450 Serum or plasma ferritin measurement (mass/volume) 44.0 % 25.0-300.0 Encounters ACCT No. Visit Date/Time Discharge Status Pt. Type Provider Facility Loc./Unit Complaint [id number] 08/12/2018 08:21:00 08/12/2018 23:59:59 CLS Outpatient TUSHAR TAMAYO MD [facility] ONC [id number] 06/18/2018 08:27:00 06/23/2018 00:01:00 DIS Outpatient TUSHAR TMAAYO MD [facility] ONC [id number] 02/25/2018 08:01:00 03/25/2018 10:39:00 DIS Outpatient TUSHAR TAMAYO MD [facility] ONC [id number] 12/03/2017 08:25:00 12/31/2017 10:50:00 DIS Outpatient TUSHAR TAMAYO MD [facility] ONC [id number] 11/05/2017 07:44:00 11/11/2017 00:01:00 DIS Outpatient TUSHAR TAMAYO MD [facility] ONC [id number] 09/05/2017 13:38:00 09/05/2017 23:59:59 CLS Outpatient BENI FLETCHER PA-C [facility] RAD THYROID NODULE [id number] 08/21/2017 11:26:00 08/21/2017 23:59:59 CLS Outpatient RUBA AVILA [facility] RAD SEVERE KIARA CAD [id number] 07/16/2017 13:38:00 07/22/2017 00:01:00 DIS Outpatient TUSHAR TAMAYO MD [facility] ONC [id number] 06/04/2017 09:50:00 06/04/2017 23:59:59 CLS Outpatient ENRRIQUE CORONADO MD [facility] RAD SEVERE BILATERAL CAROTID DISEASE ARTERY DISEASE [id number] 03/19/2017 14:07:00 03/23/2017 00:01:00 DIS Outpatient RONI BARNARD, TUSHAR [facility] ONC [id number] 11/14/2016 14:27:00 02/12/2017 00:01:00 DIS Outpatient ADRIANE MURRAY MD [facility] ONC [id number] 01/10/2017 11:24:00 01/10/2017 23:59:59 CLS Outpatient JORDYN MENDOZA MD [facility] RAD RENAL MASS [id number] 11/14/2016 14:54:00 11/14/2016 23:59:59 CLS Outpatient MICHAEL MORALES MD [facility] LAB [id number] 11/14/2016 14:51:00 11/14/2016 23:59:59 CLS Outpatient ANDREA PYLE MD [facility] LAB [id number] 08/13/2016 13:23:00 11/11/2016 00:01:00 DIS Outpatient ADRIANE MURRAY MD [facility] ONC [id number] 07/13/2016 12:03:00 07/13/2016 23:59:59 CLS Outpatient JORDYN MENDOZA MD [facility] RAD RT RENAL MASS [id number] 05/31/2016 11:04:00 06/27/2016 00:01:00 DIS Outpatient ADRIANE MURRAY MD [facility] ONC [id number] 03/01/2016 14:52:00 03/26/2016 11:07:00 DIS Outpatient ADRIANE MURRAY MD [facility] ONC [id number] 02/16/2016 11:52:00 02/16/2016 23:59:59 CLS Outpatient ADRIANE MURRAY MD [facility] CARD ELEVATED PROSTATE SPECIFIC ANTIGEN,ANEMIA [id number] 01/26/2016 12:13:00 01/26/2016 23:59:59 CLS Outpatient PETRA MARIN MD [facility] SDC ANEMIA [id number] 12/05/2015 10:39:00 12/05/2015 23:59:59 CLS Outpatient RIGO JARQUIN [facility] RAD PAD,CLAUDICATION [id number] 07/15/2015 08:03:00 07/15/2015 11:15:00 DIS Outpatient ELODIA GOETZ MD [facility] SCREENING; ANEMIA [id number] 07/13/2015 05:33:00 07/13/2015 23:59:59 CLS Outpatient ELODIA GOETZ MD [facility] PREOP SCREENING; ANEMIA [id number] 05/18/2015 10:25:00 05/18/2015 23:59:59 CLS Outpatient PETRA MARIN MD [facility] ANEMIA MULTIFACTORAL [id number] 01/03/2015 08:16:00 01/03/2015 23:59:59 CLS Outpatient NATALIE ANN [facility] CARD CAD,CABG,INCREASED FATIGUE [id number] 07/06/2013 13:28:00 07/06/2013 23:59:59 CLS Outpatient MICHAEL MORALES MD [facility] RAD PAD [id number] 01/30/2013 09:26:00 01/30/2013 23:59:59 CLS Outpatient NATALIE ANN [facility] RAD PAD,CAD,FATIGUE,LEG PAIN [id number] 12/06/2015 10:43:00 Document Registration [id number] 07/15/2015 08:02:00 Document Registration [id number] 04/17/2011 10:58:00 Document Registration [id number] 03/06/2010 00:00:00 Document Registration [id number] 12/14/2009 07:56:00 Document Registration [id number] 10/20/2009 07:20:00 Document Registration [id number] 10/13/2009 06:59:00 Document Registration [id number] 01/03/2015 08:18:53 ACT Document Registration [id number] 03/04/2017 17:04:51 03/04/2017 23:59:59 CLS Outpatient [id number] 07/07/2017 00:00:00 07/07/2017 23:59:00 DIS Outpatient Jordyn Mendoza
[2018-08-24] MEDS ORDERED: MECLIZINE 25 MG (ANTIVERT) TAB PO PRN (13:45)
--- NOTE | 2018-08-24 13:53 | Progress Note-Cardiology ---
Cardiology SOAP Progress Note Subjective: Agitated and restless and combative overnight and this am Currently, sedated and sleepy and not able to provide any history and daughter by bedside Objective: I&O/Vital Signs 08/24/18 08/24/18 08/24/18 08/24/18 04:00 04:00 04:15 06:27 Temp 98.0 Pulse 61 Resp 17 B/P (MAP) 149/77 (101) Pulse Ox 95 O2 Delivery Room Air Room Air Nasal Cannula O2 Flow Rate 2.00 08/24/18 08/24/18 08/24/18 08/24/18 07:46 07:58 08:00 08:01 Temp 97.6 Pulse 54 55 Resp 23 B/P (MAP) 113/57 (75) Pulse Ox 94 94 94 O2 Delivery Nasal Cannula Nasal Cannula Nasal Cannula O2 Flow Rate 2.00 2.00 2.00 08/24/18 08/24/18 08/24/18 12:00 13:00 13:20 Temp 97.4 Pulse 84 57 Resp 22 Pulse Ox 94 93 O2 Delivery Nasal Cannula Room Air O2 Flow Rate 2.00 08/24/18 00:00 Intake Total 160 ml Output Total 300 ml Balance -140 ml Weight (Pounds): 180 Weight (Ounces): 2.0 Weight (Calculated Kilograms): 81.689176 Constitutional: AAO x 3, well-developed, well-nourished Respiratory: No accessory muscle use; other (good bilat air enty) Cardiovascular: regular rate-rhythm, S1 and S2, systolic murmur (2/6 YASMINE at card base) Gastrointestional: No tender; soft; No guarding, No rebound; audible bowel sounds Extremities: No clubbing, No cyanosis, No significant edema Neurologic/Psychiatric: oriented x 3, grossly intact, power is 5/5 both on sides Skin: No rash on exposed areas, No ulcerations on exposed areas Results/Procedures: Labs Laboratory Tests 08/23/18 14:00: Urine Color YELLOW, Urine Clarity CLEAR, Urine pH 5, Urine Specific [place] 1.025H, Urine Protein 4+, Urine Glucose (UA) NEGATIVE, Urine Ketones NEGATIVE, Urine Nitrite NEGATIVE, Urine Bilirubin NEGATIVE, Urine Urobilinogen NORMAL, Urine Leukocyte Esterase 1+H, Urine RBC (Auto) 2+H, Urine RBC 2-5H, Urine WBC NONE, Urine Squamous Epithelial Cells RARE, Urine Crystals PRESENTH, Urine Amorphous Sediment FEW KORTNEY URATESH, Urine Bacteria NEGATIVE, Urine Casts PRESENT, Urine Hyaline Casts 0-2H, Urine Mucus SMALLH, Urine Culture Indicated NO 08/23/18 17:50: Troponin I 2.292*H 08/24/18 03:30: White Blood Count 6.8, Red Blood Count 2.83L, Hemoglobin 10.0L, Hematocrit 33L, Mean Corpuscular Volume 116H, Mean Corpuscular Hemoglobin 35H, Mean Corpuscular Hemoglobin Concent 30L, Red Cell Distribution Width 15.6H, Platelet Count 177, Mean Platelet Volume 11.0H, Neutrophils (%) (Auto) 78H, Lymphocytes (%) (Auto) 16, Monocytes (%) (Auto) 5, Eosinophils (%) (Auto) 0, Basophils (%) (Auto) 0, Neutrophils # (Auto) 5.3, Lymphocytes # (Auto) 1.1, Monocytes # (Auto) 0.4, Eosinophils # (Auto) 0.0, Basophils # (Auto) 0.0, Sodium Level 141, Potassium Level 4.6, Chloride Level 107, Carbon Dioxide Level 19L, Anion Gap 15H, Blood Urea Nitrogen 43H, Creatinine 1.95H, Estimat Glomerular Filtration Rate 33, BUN/ Creatinine Ratio 22, Glucose Level 135H, Calcium Level 9.4, Corrected Calcium 9.5, Total Bilirubin 0.7, Aspartate Amino Transf (AST/SGOT) 47H, Alanine Aminotransferase (ALT/SGPT) 18, Alkaline Phosphatase 86, B-Type Natriuretic Peptide 2058.8H, Total Protein 6.8, Albumin 3.9 Laboratory Tests 08/23/18 09:00 08/24/18 03:30 A/P: Assessment: Confusion / dementia - managed by Dr Vega Dizziness, probably medication-related Elevated troponin, flat, probably due to chronic myocardial injury and chronic kidney disease CAD. S/p CABG and subsequent PCIs (detailed records unavailable). Last cath record is of 12/10/2008: Occluded prox LAD and prox RCA; patent SVG to LAD and to PDA, AARON unused PAD, s/p R leg bypass surgery (according to the patient, records unavailable); h /o PCI to L SFA and popliteal in 2012 PAF, according to some of Dr Mccann's office notes. Apparently, this has been treated with sotalol and patient is not considered suitable for OAC due to symptomatic anemia and h/o retinal bleeds Carotid arterial disease. S/p R CEA. Subsequent f/u with Dr Mccann (records seem to indicate mod disease on subsequent follow ups) Thyroid nodules, followed by pcp (Dr Johnson) Echo 09/27/16 (Dr Reynoso, [place], [place]): sclerotic AoV, mild to mod LVH, LVEF 48%, grade 2 abbott dysfunction, possible small VSD with L-to-R shunt, very enlarged LA mild MR, mild elev of PASP, very dilated RV and RA with mild TR Severe hardness of hearing CKD 3 and R kidney mass, followed by Dr Gardner Recurrent symptomatic multifactorial macrocytic anemia, followed by Dr Gardner Chronic RBBB Hypotension that improved after d/c doxazosin in early Mar 2018. Had been on doxazosin for prostate issues Plan: * I had a very long and detailed discussion with his and family. The plan is to manage conservatively * Check orthostatic bp * Reduce bb * Add meclizine * Echo today * Management of confusion and demential is with the [facility] Clinical Quality Measures AMI/AHF: ASA po Prior to arrival: EDMUNDO Owens MD FACP FAC CCDS Aug 24, 2018 13:53
--- NOTE | 2018-08-24 14:15 | Progress Note-Hospitalist ---
Subjective HPI/CC On Admission Date Seen by Provider: Aug 24, 2018 Time Seen by Provider: 11:30 CC: NSTEMI subacute HPI: This is an 87yoWM clinic patient of Dr Johnson who presented to the ER 4 days after an episode of chest pain but began having a bit of shortness of breath so he came to the ER. Checked labs and EKG and ER w/u. Will await for Cardiology evaluation. Subjective/Events-last exam Delirium has occurred Multiple meds given Checked meds and labs Family at bedside Updated them on the plan ECHO done and pending Cannot perform cath due to delirium Precedex and Morphine and Haldol Review of Systems General: Fatigue Pulmonary: Dyspnea Neurological: Confusion Objective Exam Vital Signs Vital Signs Date Time Temp Pulse Resp B/P (MAP) Pulse Ox O2 Delivery O2 Flow Rate FiO2 08/24/18 19:41 98.0 64 18 147/80 (102) 92 Room Air 08/24/18 18:41 2.00 Capillary Refill : Less Than 3 Seconds General Appearance: WD/WN, Anxious, Chronically ill, Moderate Distress, Obese, Other (combative trying to leave and is confused. ) HEENT: PERRL/EOMI, Normal ENT Inspection, Pharynx Normal, Moist Mucous Membranes, Other (IGIUGIG) Neck: Full Range of Motion, Normal Inspection, Non Tender Respiratory: Chest Non Tender, Lungs Clear, Normal Breath Sounds, No Accessory Muscle Use, No Respiratory Distress Cardiovascular: Regular Rate, Rhythm, No Edema, No Gallop, No JVD, No Murmur, Normal Peripheral Pulses Gastrointestinal: Normal Bowel Sounds, No Organomegaly, No Pulsatile Mass, Non Tender, Soft Back: Normal Inspection, No CVA Tenderness, No Vertebral Tenderness Extremity: Normal Capillary Refill, Normal Inspection, Normal Range of Motion, Non Tender, No Calf Tenderness, No Pedal Edema Neurologic/Psychiatric: Alert, No Motor/Sensory Deficits, Normal Mood/Affect, Disoriented Skin: Normal Color, Warm/Dry Lymphatic: No Adenopathy Results/Procedures Lab Laboratory Tests 08/24/18 03:30 Patient resulted labs reviewed. Assessment/Plan Assessment and Plan Assess & Plan/Chief Complaint Assessment: NSTEMI Severe delirium Severe presbycusis HTN Dementia at baseline? Vascular type? 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
[2018-08-24 19:41] VITALS: BP 147/80
[2018-08-24 23:31] VITALS: BP 135/82
[2018-08-25 03:49] VITALS: BP 132/78
--- NOTE | 2018-08-25 07:17 | Pulmonary Progress Note ---
Subjective Time Seen by a Provider: 07:18 Subjective/Events-last exam Confusion is improved. Sepsis Event Evaluation Height, Weight, BMI Height: 5'7.00" Weight: 180lbs. 0.0oz. 81.135704kj; 28.2 BMI Method:Stated Exam Exam Vital Signs Date Time Temp Pulse Resp B/P (MAP) Pulse Ox O2 Delivery O2 Flow Rate FiO2 08/25/18 04:00 Room Air 08/25/18 03:49 97.7 70 16 132/78 (96) 99 Room Air 08/25/18 00:00 Room Air 08/24/18 23:31 97.3 67 18 135/82 (99) 99 Room Air 08/24/18 21:24 Room Air 08/24/18 20:00 Room Air 08/24/18 19:41 98.0 64 18 147/80 (102) 92 Room Air 08/24/18 18:41 Nasal Cannula 2.00 08/24/18 16:00 94 Room Air 08/24/18 16:00 56 94 Room Air 08/24/18 13:20 97.4 57 22 93 Room Air 2.00 08/24/18 13:00 84 08/24/18 12:00 94 Nasal Cannula 08/24/18 08:01 94 Nasal Cannula 2.00 08/24/18 08:00 94 Nasal Cannula 2.00 08/24/18 07:58 97.6 55 23 113/57 (75) 94 Nasal Cannula 2.00 08/24/18 07:46 54 I & O 08/25/18 07:00 Intake Total 700 ml Output Total 350 ml Balance 350 ml Height & Weight Height: 5'7.00" Weight: 180lbs. 0.0oz. 81.734360zx; 28.2 BMI Method:Stated General Appearance: WD/WN, Anxious, Chronically ill, Mild Distress, Obese HEENT: PERRL/EOMI, Normal ENT Inspection, Pharynx Normal, Moist Mucous Membranes, Other (MAKAH) Neck: Full Range of Motion, Normal Inspection, Non Tender Respiratory: Chest Non Tender, Lungs Clear, Normal Breath Sounds, No Accessory Muscle Use, No Respiratory Distress Cardiovascular: Regular Rate, Rhythm, No Edema, No Gallop, No JVD, No Murmur, Normal Peripheral Pulses Capillary Refill: Less Than 3 Seconds Extremity: Normal Capillary Refill, Normal Inspection, Normal Range of Motion, Non Tender, No Calf Tenderness, No Pedal Edema Neurologic/Psychiatric: Alert, No Motor/Sensory Deficits, Normal Mood/Affect, Disoriented Skin: Normal Color, Warm/Dry Lymphatic: No Adenopathy Results Lab Laboratory Tests 08/23/18 09:00 08/24/18 03:30 Assessment/Plan Assessment/Plan NSTEMI -Cardiology following Agitation/confusion/combative - improved - improved however still confused Bilateral pulmonary infiltrates with pulmonary edema with elevated BNP -Monitor may need lasix CHF -Echo shows EF 40-45% Metabolic acidosis - IVF -Monitor Anemia -Monitor CKD with right renal mass -Followed by oncology -IVF DARRYL COLLIER DO Aug 25, 2018 07:17
[2018-08-25] MEDS: CLOPIDOGREL 75 MG (PLAVIX) TABLET PO SCH (07:52)
[2018-08-25] MEDS: ASPIRIN 81 MG CHEW (CHILDREN'S ASA) PO SCH (07:53)
[2018-08-25] MEDS: SOTALOL 80 MG (BETAPACE) TAB PO SCH ×2 (07:53→20:58)
[2018-08-25] MEDS: meTOproloL SUCCINATE 50 MG (TOPROL XL) TAB PO SCH (07:53)
--- NOTE | 2018-08-25 08:40 | Progress Note ---
Subjective Date Seen by a Provider: Aug 25, 2018 Time Seen by a Provider: 08:30 Subjective/Events-last exam pt sleeping - his dtr reports that he has been delirious, she reports that he was pulling at lines, pulling at the blood pressure cuff, etc. he was unable to be awakened for questioning this morning. She reports that he had chest discomfort for almost a week prior to admission to the hospital. Review of Systems General: Fatigue Pulmonary: No Cough Neurological: Weakness, Confusion Objective Exam Last Set of Vital Signs Vital Signs Date Time Temp Pulse Resp B/P (MAP) Pulse Ox O2 Delivery O2 Flow Rate FiO2 08/25/18 04:00 Room Air 08/25/18 03:49 97.7 70 16 132/78 (96) 99 08/24/18 18:41 2.00 Capillary Refill : Less Than 3 Seconds I&O Intake and Output 08/25/18 00:00 Intake Total 700 ml Output Total 400 ml Balance 300 ml Intake Oral 700 ml Output Urine Total 400 ml # Voids 2 General: Other (pt sleeping) Lungs: Clear to Auscultation Heart: Regular Rate Abdomen: Normal Bowel Sounds, Soft, No Tenderness Extremities: Other (trace edema bilateral lower extremities) Psych/Mental Status: Other (pt sleeping) Assessment/Plan Assessment/Plan Assess & Plan/Chief Complaint NSTEMI DELIRIUM PRESBYCUSIS - SEVERE HYPERTENSION MILD COGNITIVE IMPAIRMENT NSTEMI WITH HYPERTENSION - CONTINUE WITH CONSERVATIVE MEDICAL MANAGEMENT. PT IS NOT A CANDIDATE FOR INTERVENTIONAL PROCEDURES. CONTINUE WITH HOME MEDICATION REGIMEN DELIRIUM WITH BASELINE MILD COGNITIVE IMPAIRMENT - PT WAS GIVEN HALDOL YESTERDAY DUE TO HIS PULLING AT LINES AND GIVEN RISPERDAL - CONTINUE WITH CURRENT REGIMEN - WILL TRANSFER PT DOWN TO 4TH FLOOR AND GET PT HOME FREDIS ONCE HE AWAKENS HE IS STABLE AT HOME WITH BASELINE CONFUSION. PRESBYCUSIS - SEVERE Clinical Quality Measures AMI/AHF: ASA po Prior to arrival: No DVT/VTE Risk/Contraindication: Risk Factor Score Per Nursin RFS Level Per Nursing on Admit: 4+=Very High ANDREA PYLE MD Aug 25, 2018 08:40
[2018-08-25] MEDS ORDERED: ASPIRIN 325 MG (5 GR) TABLET PO SCH (09:00)
[2018-08-25] MEDS ORDERED: meTOprolol SUCCINATE 100 MG (TOPROL XL) TAB PO SCH (09:00)
--- NOTE | 2018-08-25 09:31 | Progress Note-Cardiology ---
Cardiology SOAP Progress Note Subjective: Not able to provide any history (confusion after sedation) Objective: I&O/Vital Signs 08/24/18 08/25/18 08/25/18 08/25/18 23:31 00:00 03:49 04:00 Temp 97.3 97.7 Pulse 67 70 Resp 18 16 B/P (MAP) 135/82 (99) 132/78 (96) Pulse Ox 99 99 O2 Delivery Room Air Room Air Room Air Room Air 08/25/18 08/25/18 08:00 09:00 O2 Delivery Room Air Room Air 08/25/18 00:00 Intake Total 690 ml Output Total 350 ml Balance 340 ml Weight (Pounds): 180 Weight (Ounces): 0.0 Weight (Calculated Kilograms): 81.415471 Constitutional: well-developed, well-nourished Respiratory: No accessory muscle use; other (good bilat air enty) Cardiovascular: regular rate-rhythm, S1 and S2, systolic murmur (2/6 YASMINE at card base) Gastrointestional: No tender; soft; No guarding, No rebound; audible bowel sounds Extremities: No clubbing, No cyanosis, No significant edema Neurologic/Psychiatric: oriented x 3, grossly intact, power is 5/5 both on sides Skin: No rash on exposed areas, No ulcerations on exposed areas Results/Procedures: Labs Laboratory Tests 08/24/18 03:30 A/P: Assessment: Confusion / dementia - managed by Dr Johnson Dizziness, medication-related vs vestibular Elevated troponin, flat, probably due to chronic myocardial injury and chronic kidney disease. No distinct evidence of ac [place] (type 1 [place]) CAD. S/p CABG and subsequent PCIs (detailed records unavailable). Last cath record is of 12/10/2008: Occluded prox LAD and prox RCA; patent SVG to LAD and to PDA, AARON unused PAD, s/p R leg bypass surgery (according to the patient, records unavailable); h /o PCI to L SFA and popliteal in 2012 PAF, according to some of Dr Mccann's office notes. Apparently, this has been treated with sotalol and patient is not considered suitable for OAC due to symptomatic anemia and h/o retinal bleeds Carotid arterial disease. S/p R CEA. Subsequent f/u with Dr Mccann (records seem to indicate mod disease on subsequent follow ups) Thyroid nodules, followed by pcp (Dr Johnson) Echo 08/24/18: sclerotic AoV, mild to mod LVH, hypokinesis of elena-septal and apical brown, LVEF 40-45%, mod to severe MR, enlarged LA, PASP 45 mmHg Severe hardness of hearing CKD 3 and R kidney mass, followed by Dr Gardner Recurrent symptomatic multifactorial macrocytic anemia, followed by Dr Gardner Chronic RBBB Hypotension that improved after d/c doxazosin in early Mar 2018. Had been on doxazosin for prostate issues Plan: * I again had a discussion with patient's daughter regarding cardiac treatment plan * Management is conservative. Med changes as outlined in our note of 08/24/18 * I discussed his case with Dr Johnson * Management of confusion and demential is with the [facility] Clinical Quality Measures AMI/AHF: ASA po Prior to arrival: EDMUNDO Owens MD FACP FAC CCDS Aug 25, 2018 09:31
[2018-08-25] MEDS ORDERED: SOTA80TA PO (10:04)
[2018-08-25] MEDS ORDERED: MULT-1102 PO (10:04)
[2018-08-25] MEDS ORDERED: ASPI-983 PO (10:04)
[2018-08-25] MEDS ORDERED: TAMS0.4C98 PO (10:04)
[2018-08-25] MEDS ORDERED: ACET-2267 PO (10:04)
[2018-08-25] MEDS ORDERED: FERR-84 PO (10:04)
--- NOTE | 2018-08-25 10:22 | NUR ---
PATIENTS FAMILY HAD A LIST OF MEDICATIONS AND I HAD A LIST FAXED OVER FROM THE [facility] [place] TO COMPARE. [facility] FILLED: 06-27-18 SOTALOL 80MG 1/2 BID 07-04-18 TAMSULOSIN 0.4MG DAILY 07-04-18 RANITIDINE 300MG BID 08-14-18 SIMVASTATIN 80MG 1/2 HS OTC MEDS ON PATIENTS LIST: TYLENOL PRN TYLENOL PM 2 HS IRON BID MTV DAILY ASPIRIN 81MG EVERY OTHER DAY
--- NOTE | 2018-08-25 11:44 | NUR ---
Pt is [employer]. speaks for him. requesting early intervention specialist. Air Brake Tester will notify Ricardo Gonzales. Declined Communion.
[2018-08-25 12:00] VITALS: BP 142/87
[2018-08-25] MEDS: risperiDONE 1 MG (RisperDAL) TAB PO SCH ×2 (13:19→23:34)
[2018-08-25 16:00] VITALS: BP 132/78
[2018-08-25 17:58] VITALS: BP 133/78
[2018-08-25] MEDS: NS IV 1000 ML 1,000 ML IV SCH ×2 (20:36→20:58)
[2018-08-25 20:57] VITALS: BP 136/94
[2018-08-25 23:57] VITALS: BP 151/87
[2018-08-26 03:52] VITALS: BP 137/82
[2018-08-26 04:06] LABS: HEMOGLOBIN 10.3 G/DL (13.3-17.7); MEAN PLATELET VOLUME 10.7 FL (7.4-10.4); RED CELL DISTRIBUTION WIDTH 16.1 % (10.0-14.5); WHITE BLOOD COUNT 8.3 10^3/uL (4.3-11.0)
[2018-08-26 04:29] LABS: ALBUMIN 3.8 GM/DL (3.2-4.5); BILIRUBIN,TOTAL 1.1 MG/DL (0.1-1.0); CALCIUM 9.3 MG/DL (8.5-10.1); CREATININE SERUM 1.72 MG/DL (0.60-1.30); POTASSIUM 5.1 MMOL/L (3.6-5.0); TOTAL PROTEIN 6.6 GM/DL (6.4-8.2)
[2018-08-26 08:00] VITALS: BP 147/88
[2018-08-26] MEDS: ASPIRIN 81 MG CHEW (CHILDREN'S ASA) PO SCH (08:49)
[2018-08-26] MEDS: SOTALOL 80 MG (BETAPACE) TAB PO SCH (08:49)
[2018-08-26] MEDS: meTOproloL SUCCINATE 50 MG (TOPROL XL) TAB PO SCH (08:49)
[2018-08-26] MEDS: CLOPIDOGREL 75 MG (PLAVIX) TABLET PO SCH (08:49)
--- NOTE | 2018-08-26 09:01 | Discharge Summary ---
Diagnosis/Chief Complaint Date of Admission Aug 23, 2018 at 10:00 Date of Discharge Discharge Date: Aug 26, 2018 Discharge Time: 11:00 Admission Diagnosis Admission Diagnosis NSTEMI DELIRIUM PRESBYCUSIS - SEVERE HYPERTENSION MILD COGNITIVE IMPAIRMENT Discharge Diagnosis NSTEMI DELIRIUM PRESBYCUSIS - SEVERE HYPERTENSION MILD COGNITIVE IMPAIRMENT Reason Hospital Visit This is an 87yoWM clinic patient of Dr Johnson who presented to the ER 4 days after an episode of chest pain but began having a bit of shortness of breath so he came to the ER. Checked labs and EKG and ER w/u. Will await for Cardiology evaluation. Discharge Summary Consultations CARDIOLOGY AND PULMONOLOGY/CRITICAL CARE Discharge Physical Examination Allergies: Coded Allergies: No Known Drug Allergies (Unverified , 04/18/11) Vitals & I&Os Vital Signs Date Time Temp Pulse Resp B/P (MAP) Pulse Ox O2 Delivery O2 Flow Rate FiO2 08/26/18 04:00 Room Air 08/26/18 03:52 97.2 69 18 137/82 (100) 96 08/24/18 18:41 2.00 General Appearance: Alert, Oriented X3, Cooperative HEENT: Atraumatic, PERRLA Respiratory: Clear to Auscultation Cardiovascular: Regular Rate Abdominal: Normal Bowel Sounds, Soft, No Tenderness Extremities: No Cyanosis Skin: No Rashes, No Breakdown Neuro: Cranial Nerves 3-12 NL Psych/Mental Status: Mental Status NL, Mood NL Hospital Course Was the Problem List Reviewed?: Yes NSTEMI DELIRIUM PRESBYCUSIS - SEVERE HYPERTENSION MILD COGNITIVE IMPAIRMENT NSTEMI WITH HYPERTENSION - CONTINUE WITH CONSERVATIVE MEDICAL MANAGEMENT. PT IS NOT A CANDIDATE FOR INTERVENTIONAL PROCEDURES. CONTINUE WITH HOME MEDICATION REGIMEN DELIRIUM WITH BASELINE MILD COGNITIVE IMPAIRMENT - PT WAS GIVEN HALDOL DURING HOSPITALIZATION DUE TO HIS PULLING AT LINES AND GIVEN RISPERDAL - MEDICATION WILL NOT BE CONTINUED AT HOME. - WILL TRANSFER PT DOWN TO 4TH FLOOR THIS MORNING AND MAKE PLANS FOR DISCHARGE TO HOME TODAY. PRESBYCUSIS - SEVERE Pending Labs Laboratory Tests 08/26/18 03:55: White Blood Count 8.3, Red Blood Count 2.81, Hemoglobin 10.3, Hematocrit 32, Mean Corpuscular Volume 114, Mean Corpuscular Hemoglobin 37, Mean Corpuscular Hemoglobin Concent 32, Red Cell Distribution Width 16.1, Platelet Count 189, Mean Platelet Volume 10.7, Sodium Level 139, Potassium Level 5.1, Chloride Level 107, Carbon Dioxide Level 20, Anion Gap 12, Blood Urea Nitrogen 51, Creatinine 1.72, Estimat Glomerular Filtration Rate 38, BUN/Creatinine Ratio 30 , Glucose Level 133, Calcium Level 9.3, Corrected Calcium 9.5, Total Bilirubin 1.1, Aspartate Amino Transf (AST/SGOT) 80, Alanine Aminotransferase (ALT/SGPT) 44, Alkaline Phosphatase 91, Total Protein 6.6, Albumin 3.8 Discharge Condition at discharge IMPROVED Instructions to patient/family Please see electronic discharge instructions given to patient. Discharge Medications Reviewed and agree with Discharge Medication list on patient's Discharge Instruction sheet Clinical Quality Measures AMI/AHF: ASA po Prior to arrival: No DVT/VTE Risk/Contraindication: Risk Factor Score Per Nursin RFS Level Per Nursing on Admit: 4+=Very High ANDREA JOHNSON MD Aug 26, 2018 09:01
[2018-08-26] MEDS: risperiDONE 1 MG (RisperDAL) TAB PO SCH (09:07)
[2018-08-26 09:10] VITALS: BP 155/77
[2018-08-26] MEDS ORDERED: METO-370 PO (09:14)
[2018-08-26] MEDS ORDERED: CLOP75TA28 PO (09:14)
[2018-08-26] MEDS ORDERED: MECL-106 PO (09:14)
--- NOTE | 2018-08-26 09:16 | D/C HH Face to Face Order ---
D/C Face to Face Orders Instructions for Patient Via [facility] [employer], Patient Instructions/FollowUp: 1 WEEK AT [facility] [address] MARROQUIN Physician to follow Patient: LASHANDA Discharge Diet for Home: Regular Diet Patient Problems: NSTEMI, HYPERTENSION, ANEMIA, GENERALIZED WEAKNESS Goals for Patient: IMPROVED STRENGTH Patient Data-Allergies,Ht & Wt Patient Allergies: Coded Allergies: No Known Drug Allergies (Unverified , 04/18/11) Height (Feet): 5 Height (Inches): 7.00 Weight (Pounds): 180 Weight (Ounces): 0.0 Home Health Need/Face to Face Date of Face to Face: Aug 26, 2018 Clinical Findings: Generalized weakness and fatigue, Muscle weakness, Unsteady gait I have seen Pt [id number]: Yes Discharged To: Home Diagnosis/Conditions: NSTEMI, HYPERTENSION, ANEMIA, GENERALIZED WEAKNESS Patient is Homebound due to: Curt fall risk due to instabilty, Muscle weakness Homebound Status Due to the above stated illness, injury or surgical procedure (medical condition or diagnosis) and associated clinical findings, the patient is homebound because of his/her inability to leave home except with aid of a supportive device and/or person AND leaving the home requires a considerable and taxing effort or is medically contraindicated. Pt req the following assistanc: Cane Home Health Nursing Orders Home Health Services Order: Nursing Services, Physical Therapy-Evaluate & Treat Home Health Infusion Therapy Line Start Date: Aug 23, 2018 Line Start Time: 0900 Line Type: Saline Lock Site Location: Wrist Therapy Orders Therapy Orders: PT to assess for OT Therapy Specific Orders: Eval assistive deivces, Teach enviro modifications/ safety, Increase strength/endurance Certify Stmt I certify that this patient is under my care and that I, a nurse practitioner or a physician; a assistant project manager working with me, had a face to face encounter that - meets the physician face to face encounter requirements with this patient as dated. ANDREA PYLE MD Aug 26, 2018 09:16
--- NOTE | 2018-08-26 09:56 | NUR ---
0900 PT TO ROOM 427 VIA W/C ACCOMPANIED BY ICU STAFF. PT SITTING UP IN CHAIR, DAUGHTER AT BEDSIDE, PT VOICES NO C/O OF PAIN OR ANY C/O OF CHEST PAIN. LUNGS CTA, HEART RHYTHM REGULAR Addendum: 08/26/18 at 1000 by LARISSA HUTCHINS RN NO NEEDS NOTED WILL CONTINUE TO MONITOR.
--- NOTE | 2018-08-26 10:25 | NUR ---
Important Message from Medicare presented/reviewed/signed and charted by . and daughter here at this time with patient. They voiced no intention to appeal and deny any needs or further questions at this time.
--- NOTE | 2018-08-26 11:21 | Progress Note-Cardiology ---
Cardiology SOAP Progress Note Subjective: Sitting up in a recliner at the bedside. Spouse at the bedside. Both are very [place]. He denies any c/o pain. Conversation inappropriate for situation at times , redirected easily. Objective: I&O/Vital Signs 08/25/18 08/26/18 08/26/18 08/26/18 23:57 00:00 03:52 04:00 Temp 97.6 97.2 Pulse 65 69 Resp 20 18 B/P (MAP) 151/87 (108) 137/82 (100) Pulse Ox 95 96 O2 Delivery Room Air Room Air Room Air 08/26/18 08/26/18 08/26/18 08/26/18 08:00 08:00 09:00 09:10 Temp 98.0 97.3 Pulse 88 60 Resp 19 B/P (MAP) 147/88 (107) 155/77 (103) Pulse Ox 95 O2 Delivery Room Air Room Air Room Air 08/26/18 00:00 Intake Total 160 ml Output Total 275 ml Balance -115 ml Weight (Pounds): 180 Weight (Ounces): 0.0 Weight (Calculated Kilograms): 81.890471 Constitutional: well-developed, well-nourished Respiratory: No accessory muscle use; other (good bilat air enty) Cardiovascular: regular rate-rhythm, S1 and S2, systolic murmur (2/6 YASMINE at card base) Gastrointestional: No tender; soft; No guarding, No rebound; audible bowel sounds Extremities: No clubbing, No cyanosis, No significant edema Neurologic/Psychiatric: oriented x 3, grossly intact, power is 5/5 both on sides Skin: No rash on exposed areas, No ulcerations on exposed areas Results/Procedures: Labs Laboratory Tests 08/26/18 03:55: White Blood Count 8.3, Red Blood Count 2.81L, Hemoglobin 10.3L, Hematocrit 32L, Mean Corpuscular Volume 114H, Mean Corpuscular Hemoglobin 37H, Mean Corpuscular Hemoglobin Concent 32, Red Cell Distribution Width 16.1H, Platelet Count 189, Mean Platelet Volume 10.7H, Sodium Level 139, Potassium Level 5.1H, Chloride Level 107, Carbon Dioxide Level 20L, Anion Gap 12, Blood Urea Nitrogen 51H, Creatinine 1.72H, Estimat Glomerular Filtration Rate 38, BUN/Creatinine Ratio 30 , Glucose Level 133H, Calcium Level 9.3, Corrected Calcium 9.5, Total Bilirubin 1.1H, Aspartate Amino Transf (AST/SGOT) 80H, Alanine Aminotransferase (ALT/SGPT ) 44, Alkaline Phosphatase 91, Total Protein 6.6, Albumin 3.8 A/P: Assessment: Confusion / dementia - managed by Dr Johnson Dizziness, medication-related vs vestibular Elevated troponin, flat, probably due to chronic myocardial injury and chronic kidney disease. No distinct evidence of ac [place] (type 1 [place]) CAD. S/p CABG and subsequent PCIs (detailed records unavailable). Last cath record is of 12/10/2008: Occluded prox LAD and prox RCA; patent SVG to LAD and to PDA, AARON unused PAD, s/p R leg bypass surgery (according to the patient, records unavailable); h /o PCI to L SFA and popliteal in 2012 PAF, according to some of Dr Mccann's office notes. Apparently, this has been treated with sotalol and patient is not considered suitable for OAC due to symptomatic anemia and h/o retinal bleeds Carotid arterial disease. S/p R CEA. Subsequent f/u with Dr Mccann (records seem to indicate mod disease on subsequent follow ups) Thyroid nodules, followed by pcp (Dr Johnson) Echo 08/24/18: sclerotic AoV, mild to mod LVH, hypokinesis of elena-septal and apical brown, LVEF 40-45%, mod to severe MR, enlarged LA, PASP 45 mmHg Severe hardness of hearing CKD 3 and R kidney mass, followed by Dr Gardner Recurrent symptomatic multifactorial macrocytic anemia, followed by Dr Gardner Chronic RBBB Hypotension that improved after d/c doxazosin in early Mar 2018. Had been on doxazosin for prostate issues Plan: * Dr. Black has had a discussion with patient's daughter regarding cardiac treatment plan * Management is conservative * I discussed his case with Dr Johnson * Management of confusion and demential is with the Med Svce * OK to discharge home today on current medication regimen with out pt f/u Clinical Quality Measures AMI/AHF: ASA po Prior to arrival: LAUREN Sepulveda Aug 26, 2018 11:21
[2018-08-26 12:00] VITALS: BP 139/75
[2018-08-26] MEDS: NS IV 1000 ML 1,000 ML IV SCH (12:50)
--- NOTE | 2018-08-26 14:13 | NUR ---
CM/SS, respond to consult. HHC: Coordinated with patient/spouse preferred agency, [facility], for RN, PT/OT. Spouse requested a male bath aid, documentation writer updated [facility] with referral information, not sure they have male staff. Patient and spouse reside at home and continue to manage with the assistance of family. Spouse provided Living Will and DPOA-HC, copied and in patient folder for EMR scanning. Spouse will transport once all discharge activities are completed.
[2018-08-26 16:35] VITALS: BP 139/75
--- NOTE | 2018-08-27 11:28 | Physician Query Clarification ---
PQ-CHF Specificity The medical record reflects the following clinical scenario: History/Risk Factors: 08/25/18 - DR COLLIER PROGRESS NOTE - CHF Clinical Findings: 08/24/18 - BNP 2058.8 08/24/18 - ECHO EJECTION FRACTION 40-45% Treatment: [list no more than 2] Question: Can you further specify the acuity &/or type of CHF per the clinical indicators above? Please document a response below PHYSICIAN RESPONSE Acuity: Acute on Chronic Type: Systolic In responding to this query, please exercise your independent professional judgment. The purpose of this communication is to more accurately reflect the complexity of your patients condition. The fact that a question is asked does not imply that any particular answer is desired or expected. Thank you for your timely response to this clarification. Requestors name: Dayana Jose THIS PHYSICIAN QUERY FORM IS A PERMANENT PART OF THE MEDICAL RECORD EZEQUIEL ALFARO Aug 27, 2018 11:28 ANDREA PYLE MD Sep 16, 2018 21:17
== END 2018-08-26 14:50 | disposition home health service (06) | DRG 280 ==
LOC: EDUNIT# 08:49 → ER 08:51 → ICU 10:00 → 4TH 08-26 09:00
PROVIDERS: ADMIT Internal Medicine; ATTEND Internal Medicine
DX: I21.4 Non-ST elevation (NSTEMI) myocardial infarction (principal); I25.10 Atherosclerotic heart disease of native coronary artery without angina pectoris; N17.9 Acute kidney failure, unspecified; I13.0 Hypertensive heart and chronic kidney disease with heart failure and stage 1 through stage 4 chronic kidney disease, or unspecified chronic kidney disease; I50.23 Acute on chronic systolic (congestive) heart failure; N18.3 Chronic kidney disease, stage 3 (moderate); E87.2 Acidosis; I48.91 Unspecified atrial fibrillation; I45.10 Unspecified right bundle-branch block; E78.00 Pure hypercholesterolemia, unspecified; K21.9 Gastro-esophageal reflux disease without esophagitis; H91.13 Presbycusis, bilateral; R91.8 Other nonspecific abnormal finding of lung field; R41.0 Disorientation, unspecified; G31.84 Mild cognitive impairment of uncertain or unknown etiology; I34.0 Nonrheumatic mitral (valve) insufficiency; D53.9 Nutritional anemia, unspecified; Z87.891 Personal history of nicotine dependence; Z95.1 Presence of aortocoronary bypass graft
CPT/HCPCS: 36415; 71045; 80053; 81000; 83880; 84484; 85025; 85027; 93005; 93306